=== PATIENT | female | born 1950 | race Caucasian/White ===

== ENCOUNTER 2019-01-04 21:05 | Inpatient (IN) ==
[2019-01-04 21:18] LABS: POC INR 1.5 (0.9-1.2); POC Pro Time 18.1 sec (11.9-14.5)
[2019-01-04 21:19] LABS: POC Blood Urea Nitrogen 26 mg/dl (8-23); POC CO2 22 mmol/L (22-30); POC Calcium, Ionized 1.09 mmol/L (1.16-1.32); POC Chloride 106 mmol/L (96-108); POC Creatinine 1.1 mg/dl (0.6-1.1); POC Glucose, Random 137 mg/dL (70-105); POC Potassium 4.3 mmol/L (3.3-5.1); POC Sodium 140 mmol/L (133-145)
--- NOTE | 2019-01-04 21:23 | Emergency Department Note ---
Neuro HPI - General Chief Complaint: Stroke Symptoms Stated Complaint: stroke symptoms Time Seen by Provider: 01/04/19 21:19 Source: patient Mode of arrival: ambulatory Limitations: no limitations - History of Present Illness HPI Narrative: Since 2:00 this afternoon patient has had onset of right leg weakness, right arm weakness as well as slurred speech, right-sided facial droop and these symptoms have come and gone multiple times since this afternoon. No headache she does take Coumadin, she does have a history of mitral valve replacement. She has a mechanical heart valve. She presented acutely to ED with history of right-sided weakness that resolved spontaneously on arrival to the ED. Onset (ago): hour(s) - Related Data Home Medications: Home Medications Medication Instructions Recorded Confirmed Amiodarone HCl [Pacerone] 0 mg PO DAILY 12/12/16 01/04/19 Warfarin [Coumadin] 2.5 mg PO DAILY 12/12/16 01/04/19 cholecalciferol (vitamin D3) 1 each PO QDAY 10/27/18 01/04/19 hydrocodone 5 mg-acetaminophen 325 1 tab PO PRN PRN tab 10/27/18 11/24/18 mg tablet levothyroxine 100 mcg tablet 100 mcg PO QDAY 10/27/18 01/04/19 spironolactone 25 mg tablet 25 mg PO PRN tab 10/27/18 01/04/19 vitamin B complex 1 each PO QDAY 10/27/18 01/04/19 furosemide 20 mg tablet 20 mg PO DAILY PRN tab 11/24/18 01/04/19 Allergies/Adverse Reactions: Allergies Allergy/AdvReac Type Severity Reaction Status Date / Time metoprolol Allergy Unknown hypotension Verified 11/24/18 09:45 codeine AdvReac Nausea Verified 11/24/18 09:45 Review of Systems All systems ED: reviewed and negative except as stated. Constitutional: Denies: fever, chills ENT ED: Denies: ear pain, throat pain Cardiovascular: Denies: palpitations Past Medical History - Past Medical History Medical history: Reports: atrial fibrillation, CAD (coronary artery disease), chronic anticoagulation, hypertension, thyroid disease, valvular heart disease FAMILY NURSE history: Reports: bilateral tubal ligation (2) Surgical history ED: Reports: coronary bypass (CABG), other (Mitral valve replacement. Recent cardioversion) Family history: Reports: no significant family history - Social History smoking status: Former smoker Alcohol use: Reports: Occasionally Physical Exam Limitations: no limitations General appearance: alert, anxious, in no apparent distress Head: atraumatic, normocephalic, normal inspection Eye: Present: normal appearance, PERRL, EOMI. Absent: conjunctival injection ENT: Present: normal exam, normal oropharynx, mucous membranes moist, TM's normal bilaterally, other (global type of alopecia) Neck: Present: normal inspection, full ROM, trachea midline. Absent: tenderness, meningismus Chest: Present: normal inspection, symmetric chest wall rise. Absent: tenderness Respiratory: Present: normal lung sounds bilaterally. Absent: respiratory distress, rales/crackles, wheezes Cardiovascular: Present: regular rate, systolic murmur, clicks, other (mechanical clicks consistent with artificial heart valve) Abdominal: Present: soft, normal bowel sounds. Absent: distention, tenderness Extremities: Present: normal inspection, full ROM. Absent: tenderness, pedal edema Back: Absent: CVA tenderness (R), CVA tenderness (L) Neurological: Present: alert, oriented X3, CN II-XII intact, normal gait. Absent: motor sensory deficit Psychiatric: Present: normal affect Skin: Present: warm, dry, normal color Course - Reevaluation(s) Reevaluation #1: IV fluids started. EKG done. Stroke protocol initiated. Head CT was read as negative for intracranial bleed or other acute findings of. We consulted with neurology and at the time we placed the initial call her NIH stroke scale was 0. Within a few minutes her symptoms recurred and then again she had right-sided weakness right-sided facial droop as well as right leg weakness with an NIH stroke scale score of 12 . Her neurologist looked at her with the robot and together with neurology consultation she decided and opted not to pursue TPA administration. The concern at this point was that she is already on Coumadin and the damage may have started at 1:30 this afternoon and the risk of hemorrhage is higher than usual with her being on Coumadin. Thus we will pursue CT angiogram, and go from there. We supported her with IV fluid administration, I ordered a fluid bolus which she has tolerated well. Blood pressures have been normal. Reevaluation #2: The neurologist from the stroke telemetry team doctor Elvin did have a conference call with the patient. She decided not to pursue TPA. He felt like she was not a TPA candidate as well. He did recommend aspirin. We gave her 4 chewable aspirin. Also IV fluids. Her symptoms went away again. At the time of this dictation she does not have neuro deficits, denies headache has had no nausea or vomiting, will be admitted for further monitoring. Final diagnosis is TIA, on Coumadin, history of mechanical heart valve replacement Vital Signs Temperature 98.1 F 01/04/19 21:06 Pulse Rate 72 01/04/19 21:06 Respiratory Rate 18 01/04/19 21:06 Blood Pressure 186/73 01/04/19 21:06 Pulse Oximetry (%) 97 01/04/19 21:06 Temperature 98.1 F 01/04/19 21:06 Pulse Rate 65 01/04/19 22:51 Respiratory Rate 19 01/04/19 22:51 Blood Pressure 134/56 01/04/19 22:51 Pulse Oximetry (%) 98 01/04/19 22:51 Neuro Symptoms/Deficit - MDM Narrative Medical decision making narrative: Final impression is TIA - Lab Data Lab results reviewed: Yes I reviewed the patient's lab results. Result diagrams: 01/04/19 21:15 01/04/19 21:15 Lab Results 01/04/19 01/04/19 01/04/19 Range/Units 21:15 21:15 21:15 WBC 7.4 (4.5-11.0) K/mcL RBC 4.56 (4.00-5.20) M/mcL Hgb 14.6 (12.0-15.0) g/dL Hct 43.4 (36.0-48.0) % POC Hct 43.0 (36.0-48.0) % MCV 95.2 (80.0-100.0) fL MCH 32.1 (26.0-34.0) pg MCHC 33.8 (31.0-36.0) g/dL RDW 12.2 (11.5-14.5) % Plt Count 288 (140-440) K/mcL MPV 8.8 (7.4-10.4) fL Gran % 80.1 H (38.0-78.0) % Lymph % (Auto) 6.4 L (15.5-49.0) % [place] % (Auto) 12.8 H (1.0-12.0) % Eos % (Auto) 0.3 (0.0-7.0) % Baso % (Auto) 0.4 (0.0-2.0) % Gran # 6.0 (1.8-8.0) K/mcL Lymph # (Auto) 0.5 L (1.5-4.8) K/mcL [place] # (Auto) 0.9 (0.1-0.9) K/mcL Eos # (Auto) 0 (0.0-0.7) K/mcL Baso # (Auto) 0 (0.0-0.3) K/mcL POC PT 18.1 H (11.9-14.5) sec POC INR 1.5 H (0.9-1.2) APTT (20-37) sec POC Sodium 140 (133-145) mmol/L Sodium (133-145) mmol/L POC Potassium 4.3 (3.3-5.1) mmol/L Potassium (3.3-5.1) mmol/L POC Chloride 106 (96-108) mmol/L Chloride (96-108) mmol/L Carbon Dioxide (22-30) mmol/L POC Total CO2 22 (22-30) mmol/L Anion Gap (8-16) POC BUN 26 H (8-23) mg/dl BUN (8-23) mg/dl Creatinine (0.6-1.1) mg/dl POC Creatinine 1.1 (0.6-1.1) mg/dl GFR Calculation Glucose (70-105) mg/dL POC Glucose 137 H (70-105) mg/dL Calcium (8.6-10.4) mg/dl POC WB Ioniz Calcium 1.09 L (1.16-1.32) mmol/L Total Bilirubin (0.0-1.0) mg/dL AST (0-37) U/l ALT (0-40) U/l Alkaline Phosphatase (39-117) U/L Troponin T (0-0.03) ng/ml Total Protein (5.9-8.4) gm/dL Albumin (3.2-5.2) gm/dL Globulin (2.2-3.7) gm/dL Albumin/Globulin Ratio (1.0-2.3) 01/04/19 01/04/19 01/04/19 Range/Units 21:15 21:15 21:15 WBC (4.5-11.0) K/mcL RBC (4.00-5.20) M/mcL Hgb (12.0-15.0) g/dL Hct (36.0-48.0) % POC Hct (36.0-48.0) % MCV (80.0-100.0) fL MCH (26.0-34.0) pg MCHC (31.0-36.0) g/dL RDW (11.5-14.5) % Plt Count (140-440) K/mcL MPV (7.4-10.4) fL Gran % (38.0-78.0) % Lymph % (Auto) (15.5-49.0) % [place] % (Auto) (1.0-12.0) % Eos % (Auto) (0.0-7.0) % Baso % (Auto) (0.0-2.0) % Gran # (1.8-8.0) K/mcL Lymph # (Auto) (1.5-4.8) K/mcL [place] # (Auto) (0.1-0.9) K/mcL Eos # (Auto) (0.0-0.7) K/mcL Baso # (Auto) (0.0-0.3) K/mcL POC PT (11.9-14.5) sec POC INR (0.9-1.2) APTT 31 (20-37) sec POC Sodium (133-145) mmol/L Sodium 138 (133-145) mmol/L POC Potassium (3.3-5.1) mmol/L Potassium 4.3 (3.3-5.1) mmol/L POC Chloride (96-108) mmol/L Chloride 101 (96-108) mmol/L Carbon Dioxide 20 L (22-30) mmol/L POC Total CO2 (22-30) mmol/L Anion Gap 17.0 H (8-16) POC BUN (8-23) mg/dl BUN 24 H (8-23) mg/dl Creatinine 1.1 (0.6-1.1) mg/dl POC Creatinine (0.6-1.1) mg/dl GFR Calculation 51 Glucose 132 H (70-105) mg/dL POC Glucose (70-105) mg/dL Calcium 8.9 (8.6-10.4) mg/dl POC WB Ioniz Calcium (1.16-1.32) mmol/L Total Bilirubin 1.2 H (0.0-1.0) mg/dL AST 23 (0-37) U/l ALT 18 (0-40) U/l Alkaline Phosphatase 78 (39-117) U/L Troponin T < 0.01 (0-0.03) ng/ml Total Protein 7.5 (5.9-8.4) gm/dL Albumin 4.1 (3.2-5.2) gm/dL Globulin 3.4 (2.2-3.7) gm/dL Albumin/Globulin Ratio 1.2 (1.0-2.3) - Radiology Data Radiology results reviewed: Yes I reviewed the patient's radiology results. Disposition Pt seen by BRANCH MANAGER/PA only: No Clinical Impression: TIA (transient ischemic attack) Disposition: Xfer As Inpt ([facility]) Condition: Good Referrals: Shaina Sanchez ARNP [Primary Care Provider] -
[2019-01-04] MEDS ORDERED: LACTATED RINGERS 1,000 ML IV SCH ×2 (21:30→22:45)
--- NOTE | 2019-01-04 21:40 | Cat Scan Report ---
Reason: Acute stroke symptoms TECHNIQUE: The brain was imaged without contrast at 2.5 mm intervals. Sagittal and coronal reformats were created. Radiation exposure was limited using dose reduction technology. FINDINGS: The brain appears normal without evidence of hemorrhage, edema, infarct or mass effect. The ventricles and cisterns are normal. There is no abnormal extra-axial fluid collection. Patient has had left-sided cataract surgery performed. IMPRESSION: Normal exam, without evidence of infarct Dr. Easley was called with the results Interpreted and Authenticated by: Drew Kaur 01/04/19
[2019-01-04 22:22] LABS: Basophils # (Auto) 0 K/mcL (0.0-0.3); Basophils % (Auto) 0.4 % (0.0-2.0); Eosinophils # (Auto) 0 K/mcL (0.0-0.7); Eosinophils % (Auto) 0.3 % (0.0-7.0); Granulocytes % (Auto) 80.1 % (38.0-78.0); Hematocrit 43.4 % (36.0-48.0); Hemoglobin 14.6 g/dL (12.0-15.0); Lymphocytes # (Auto) 0.5 K/mcL (1.5-4.8); Lymphocytes % (Auto) 6.4 % (15.5-49.0); Mean Cell Volume 95.2 fL (80.0-100.0); Mean Corpuscular HGB Conc 33.8 g/dL (31.0-36.0); Mean Platelet Volume 8.8 fL (7.4-10.4); Monocytes # (Auto) 0.9 K/mcL (0.1-0.9); Monocytes % (Auto) 12.8 % (1.0-12.0); Platelet Count 288 K/mcL (140-440); RBC 4.56 M/mcL (4.00-5.20); Red Cell Distribution Width 12.2 % (11.5-14.5); WBC 7.4 K/mcL (4.5-11.0)
[2019-01-04 22:35] LABS: ALT/SGPT 18 U/l (0-40); AST/SGOT 23 U/l (0-37); Albumin 4.1 gm/dL (3.2-5.2); Albumin/Globulin Ratio 1.2 (1.0-2.3); Alkaline Phosphatase 78 U/L (39-117); Bilirubin,Total 1.2 mg/dL (0.0-1.0); Blood Urea Nitrogen 24 mg/dl (8-23); Calcium 8.9 mg/dl (8.6-10.4); Carbon Dioxide 20 mmol/L (22-30); Chloride 101 mmol/L (96-108); Globulin 3.4 gm/dL (2.2-3.7); Glomerular Filtration Rate 51; Glucose 132 mg/dL (70-105)
[2019-01-04] MEDS ORDERED: 0.9 % SODIUM CHLORIDE 1,000 ML IV SCH (22:45)
[2019-01-04] MEDS ORDERED: ASPIRIN 81 MG TAB.CHEW CHEWED ONE (22:56)
[2019-01-05] MEDS ORDERED: ACETAMINOPHEN 325 MG TABLET PO PRN (01:13)
[2019-01-05] MEDS: LACTATED RINGERS 1,000 ML IV SCH ×4 (02:46→11:23)
[2019-01-05 06:02] LABS: Hematocrit 36.8 % (36.0-48.0); Hemoglobin 12.3 g/dL (12.0-15.0); Mean Corpuscular HGB Conc 33.3 g/dL (31.0-36.0); Mean Platelet Volume 8.4 fL (7.4-10.4); Platelet Count 206 K/mcL (140-440); RBC 3.75 M/mcL (4.00-5.20); Red Cell Distribution Width 12.8 % (11.5-14.5); WBC 6.1 K/mcL (4.5-11.0)
[2019-01-05] MEDS: 0.9 % SODIUM CHLORIDE 10 ML SYRINGE IV SCH ×3 (06:05→22:32)
[2019-01-05 06:06] LABS: HDL Cholesterol 38 mg/dl (>40); LDL Cholesterol,Calculated 128 mg/dl (SEE CHART); Non-HDL Cholesterol 138 (LDL TARGET+30); Triglycerides 51 mg/dl (<150)
[2019-01-05 06:27] LABS: ALT/SGPT 14 U/l (0-40); AST/SGOT 18 U/l (0-37); Albumin 3.2 gm/dL (3.2-5.2); Albumin/Globulin Ratio 1.2 (1.0-2.3); Alkaline Phosphatase 61 U/L (39-117); Bilirubin,Total 0.9 mg/dL (0.0-1.0); Blood Urea Nitrogen 22 mg/dl (8-23); Calcium 8.4 mg/dl (8.6-10.4); Carbon Dioxide 23 mmol/L (22-30); Chloride 107 mmol/L (96-108); Globulin 2.6 gm/dL (2.2-3.7); Glomerular Filtration Rate 75; Glucose 122 mg/dL (70-105); Thyroid Stimulating Hormone 0.27 uIU/ml (0.27-5.01)
[2019-01-05 07:24] LABS: Estimated Average Glucose(eAG) 103 mg/dL; Hemoglobin A1C 5.2 % HGB (4.0-6.0)
[2019-01-05 07:52] LABS: Lymphocytes % 2 % (15-49); Monocytes % (Manual) 12 % (1-12); Platelet Estimate NORMAL (NORMAL); RBC Morphology NORMAL (NORMAL); Reactive Lymphocytes 1 % (0-2); Segmented Neutrophils % 85 % (38-78)
--- NOTE | 2019-01-05 08:04 | Cat Scan Report ---
History: Stroke symptoms with right-sided weakness TECHNIQUE: Following injection of intravenous nonionic contrast, arterial phase images were acquired of the head. Sagittal and axial reformatted MIPS images were created. The radiation exposure was limited using dose reduction technology. FINDINGS: Small amount of eccentric plaque is seen along the brunner of the cavernous portions of both internal carotids. These are not causing stenosis. Petrous portions of both internal carotids are normal. The anterior and middle cerebral arteries are normal. The vertebral and basilar artery and the peripheral branches of the basilar arteries are normal in caliber. There is no aneurysm, stenosis, thrombosis or vascular malformation. No enhancing lesion is present. There is normal anterior communicating artery. Small patent right posterior communicating arteries are present. The left posterior communicating artery is hypoplastic. IMPRESSION: Normal intracranial arterial circulation Interpreted and Authenticated by: Drew Kaur 01/05/19
--- NOTE | 2019-01-05 08:16 | Cat Scan Report ---
History: Stroke symptoms with right-sided weakness TECHNIQUE: Following injection of intravenous nonionic contrast the patient was imaged during arterial phase from the main pulmonary artery to the head. Sagittal, coronal, 3-D volume rendered and curved linear reformatted images were created. The radiation exposure was limited using dose reduction technology. FINDINGS: There is a mosaic pattern in the lung parenchyma in the left upper lobe. Several of the lobules in the left upper lobe are hyperlucent6. There is normal opacification of the pulmonary arteries and veins within these lobules. The visualized airways do not appear to be occluded. Patient's had a prior sternotomy performed. Central pulmonary arteries enlarged. No pulmonary emboli are seen in the visualized pulmonary arteries. Scattered plaques are present along the top of the aortic arch. The aorta is normal in caliber and there is no dissection or stenosis. In the left carotid bifurcation there is a moderate amount of mixed plaque. Patient has an ulceration within the plaque. At this level there is a hemodynamically significant stenosis at the origin of the left internal carotid. There is approximately 70% stenosis, best seen on the current linear reformatted images. Beyond the stenosis the left internal carotid is normal. The left external carotid is normal. There is small amount of plaque in the right carotid bifurcation. This is causing approximately 25% stenosis at the origin of the internal carotid. The external carotid is normal. Mid and distal portions of the right internal carotid are normal. Vertebral arteries are normal in caliber and symmetric. No enhancing masses seen within the neck. There is no lymphadenopathy or inflammation. Moderate degenerative disc disease and arthritis are present from C4-5 through C6-7. IMPRESSION: Atherosclerosis of the left carotid bifurcation. There is an ulcerated plaque at this level and a 70% stenosis at the origin of the left internal carotid. Hyperlucent left upper lobe. This may be due to bronchiolitis obliterans or mucous plugging Dilated main pulmonary artery which is often associated with pulmonary artery hypertension Interpreted and Authenticated by: Drew Kaur 01/05/19
[2019-01-05] MEDS ORDERED: ASPIRIN 81 MG TAB.CHEW CHEWED SCH (09:00)
[2019-01-05 12:08] LABS: Appearance,Urine CLEAR; Bilirubin,Urine NEG (NEG); Color,Urine STRAW; Glucose,Urine (UA) NEGATIVE (NEG); Ketones,Urine NEG (NEG); Leukocyte Esterase,Urine NEG /uL (NEG); Nitrate,Urine NEG (NEG); Protein,Urine NEG (NEG); Urine Blood NEG mg/dL (<0.03)
--- NOTE | 2019-01-05 12:43 | Magnetic Resonance Report ---
History: Stroke symptoms with slurred speech, right facial droop and transient loss of movement on the right side of the body. TECHNIQUE: Multiplanar imaging was performed using multiple pulse sequences. FINDINGS: There is subtle swelling of the body of the left caudate nucleus and left putamen, compared to the right side. There is also mild increased signal within these two structures on FLAIR and T2 and there is subtle restricted diffusion. This may represent a hyperacute infarct or ischemic brain tissue which has not infarcted. No cortical infarct is present. There is no mass or hemorrhage. Ventricles and cisterns are normal. There is no significant atrophy. IMPRESSION: Hyperacute infarct versus ischemic but not infarcted brain tissue involving the left caudate nucleus and left putamen Dr. Reina was called with results Interpreted and Authenticated by: Drew Kaur 01/05/19
[2019-01-05 13:14] LABS: INR 1.7 (0.9-1.1); Prothrombin Time 19.9 sec (11.9-14.5)
--- NOTE | 2019-01-05 13:14 | Internal Med Progress Note ---
Medical - PN: Subj Patient information: Note initiated : 01/05/19 at 1:12 pm Service Date, if different from initiated Date: [] Patient: Crystal Conley 68 y/o F admitted on 01/05/19 for stroke symptoms. Chief Complaint: [] Interval history: Her symptoms completely resolved Pending INR level MRI showing evidence of stroke CT of the neck showing unstable plaque at the left carotid bifurcation Neurology consult Pertinent ROS: General appearance-not in any distress but appears to be very anxious Respiratory-no shortness of breath No wheezing no crackles CVS-no chest pain no palpitations Abdomen-nontender no constipation no diarrhea Neurology-her symptoms completely resolved not complaining of any aphasia or swallowing difficulty or any photo motor or sensory deficit - Constitutional Vitals: Vital Signs Temp Pulse Resp BP Pulse Ox 99.6 F H 52 L 16 118/62 97 01/05/19 07:09 01/05/19 07:09 01/05/19 07:09 01/05/19 07:09 01/05/19 07:09 Period Temp Pulse Resp BP Sys/Mai Pulse Ox Last 24 Hr 98.1 F-99.6 F 51-72 14-28 118-186/52-94 95-99 Intake and Output 01/04/19 01/05/19 01/05/19 21:59 05:59 13:59 Intake Total 50 2190 1000 Output Total 700 1800 Balance 50 1490 -800 Weight 157 lb 161 lb Intake & Output: Intake & Output 01/04/19 01/05/19 01/05/19 21:59 05:59 13:59 Intake Total 50 2190 1000 Output Total 700 1800 Balance 50 1490 -800 Weight 157 lb 161 lb Intake: IV 50 1950 1000 Lactated Ringers 1,000 ml @ 870 39 5142 1000 mls/hr IV .[id number] [facility] Rx#: [id number] Oral 240 Output: Void Amount 700 1800 Other: Meal Breakfast Percent of Meal Consumed 0% Urine Appearance Clear Clear Urine Color Bright Yellow Bright Yellow Urine Odor Normal Stool Size Small Stool Color Brown Stool Consistency Soft General appearance: average body habitus, cooperative, no acute distress - Head Head exam: Present: atraumatic, normal inspection, normocephalic - Neck Neck exam: Present: full ROM, tenderness (Erythematous neck and face). Absent: lymphadenopathy, normal inspection - Respiratory Respiratory exam: Present: normal respiratory exam. Absent: accessory muscle use, chest wall tenderness, decreased breath sounds, respiratory distress - Cardiovascular Cardiovascular exam: Present: normal rate and rhythm, systolic murmur. Absent: bradycardia - GI/Abdominal GI/Abdominal exam: Present: normal bowel sounds, soft, distended - Neurological Exam Neurological exam: Present: alert, normal gait, oriented X3 (Neuro exam unremarkable no focal deficit identified, her symptoms completely resolved), reflexes normal. Absent: abnormal gait, CN II-XII intact, motor sensory deficit Medical - PN: Obj Da - Labs CBC & Chem 7: 01/05/19 04:00 01/05/19 04:00 Labs: Abnormal Lab Results 01/05/19 01/05/19 01/05/19 04:00 04:00 04:00 RBC 3.75 L Gran % Lymph % (Auto) [place] % (Auto) Lymph # (Auto) Seg Neutrophils % 85 H Lymphocytes % 2 L POC PT POC INR Carbon Dioxide Anion Gap POC BUN BUN Glucose 122 H POC Glucose Calcium 8.4 L POC WB Ioniz Calcium Total Bilirubin Total Protein 5.8 L LDL Cholesterol, Calc 128 H Non-HDL Cholesterol 138 H HDL Cholesterol 38 L Urine Urobilinogen 01/04/19 01/04/19 01/04/19 21:15 21:15 21:15 RBC Gran % 80.1 H Lymph % (Auto) 6.4 L [place] % (Auto) 12.8 H Lymph # (Auto) 0.5 L Seg Neutrophils % Lymphocytes % POC PT POC INR Carbon Dioxide 20 L Anion Gap 17.0 H POC BUN 26 H BUN 24 H Glucose 132 H POC Glucose 137 H Calcium POC WB Ioniz Calcium 1.09 L Total Bilirubin 1.2 H Total Protein LDL Cholesterol, Calc Non-HDL Cholesterol HDL Cholesterol Urine Urobilinogen 01/04/19 01/04/19 21:15 11:34 RBC Gran % Lymph % (Auto) [place] % (Auto) Lymph # (Auto) Seg Neutrophils % Lymphocytes % POC PT 18.1 H POC INR 1.5 H Carbon Dioxide Anion Gap POC BUN BUN Glucose POC Glucose Calcium POC WB Ioniz Calcium Total Bilirubin Total Protein LDL Cholesterol, Calc Non-HDL Cholesterol HDL Cholesterol Urine Urobilinogen 4.0 A Meds: Medications Acetaminophen (Tylenol) 650 mg PO Q4-6HP PRN; Protocol PRN Reason: PAIN/FEVER > 101 Aspirin (Aspirin) 81 mg CHEWED DAILY [facility] Last Admin: 01/05/19 08:57 Dose: 81 mg Documented by: Non-Formulary Medication (Amiodarone Hcl [Pacerone]) 100 mg PO DAILY [facility] Non-Formulary Medication (Levothyroxine Sodium) 100 mcg PO QDAY [facility] Sodium Chloride (Saline Flush) 10 ml IV Q8 [facility] Last Admin: 01/05/19 06:05 Dose: Not Given Documented by: Warfarin Sodium (Coumadin Per Pharmacy) 1 order PO DAILY@1400 [facility] Warfarin Sodium (Coumadin) 2.5 mg PO ONCE@1400 ONE Stop: 01/05/19 14:01 Medical - PN: A/P - Time Spent With Patient Total time spent is greater than 50% in coordination of care (as documented) at patient's floor/unit and/or counseling patient: - Narrative A/P Narrative: Probable stroke MRI showing evidence of ischemia/stroke CTA showed evidence of 70% internal carotid narrowing and unstable plaque Will obtain neurology consult Pending INR and initiate anticoagulation Pharmacy to dose Coumadin Strongly encourage the patient to keep the INR 2.5-3.5 and check at least 2 times weekly. Patient was taking twice a month Aspirin continued 81 mg Pending echocardiogram Physical therapy evaluation Swallow evaluation Mechanical mitral valve Strongly encourage the patient to keep INR level 2.5 We will get opinion from neurology regarding anticoagulation and bridging Probable atrial fibrillation On amiodarone continue Monitor telemetry Anticoagulation DVT prophylaxis-subcu heparin CODE STATUS-full code Medical - PN: Qual - Stroke Onset of Symptoms Date: 01/04/19 Onset of Symptoms Time: 13:30 Symptom Onset Unknown: No
[2019-01-05] MEDS ORDERED: WARFARIN 2.5 MG TABLET PO ONE (14:00)
--- NOTE | 2019-01-05 17:32 | Internal Med History&Physical ---
Medical - H&P: [facility] Patient information: Note initiated : 01/04/19 at 11:31 pm Service Date, if different from initiated Date: []01/04/2019 Patient: Crystal Conley a 68 y/o F admitted on 01/05/19 for stroke symptoms. Chief Complaint: [] History of present illness: Ms. Conley is a 68 year old F This is a 68-year-old female with history of mitral mechanical valve 5 years ago, on hydrocodone, diuretics, amiodarone for probable atrial fibrillation. She was brought to the ER because of sudden onset of right upper and lower extremity weakness. Patient underwent some complicated dental cleaning this morning she was very anxious and her blood pressure was in the 200. After the procedure she went home. She also received a dose of amoxicillin preprocedure. Around noon at home she started having right upper and lower extremity weakness by the time she gets to the ER her symptoms resolved and ER physician discussed with the neurology did not recommend TPA. But patient again developed the symptoms CT scan was unremarkable and we communicated with the neurology and her symptoms improved since this was intermittent symptoms and completely resolved neurology did not recommend any thrombolytics. She was admitted to our facility for further management Medical - H&P: Meds Home Medications Medication Instructions Recorded Confirmed Type Amiodarone HCl [Pacerone] 100 mg PO DAILY 12/12/16 01/05/19 History Warfarin [Coumadin] 2.5 mg PO DAILY 12/12/16 01/05/19 History cholecalciferol (vitamin D3) 1 each PO QDAY 10/27/18 01/05/19 History hydrocodone 5 mg-acetaminophen 325 1 tab PO PRN PRN tab 10/27/18 11/24/18 History mg tablet levothyroxine 100 mcg tablet 100 mcg PO QDAY 10/27/18 01/05/19 History spironolactone 25 mg tablet 25 mg PO PRN tab 10/27/18 01/05/19 History vitamin B complex 1 each PO QDAY 10/27/18 01/04/19 History furosemide 20 mg tablet 20 mg PO DAILY PRN tab 11/24/18 01/04/19 History Allergies Allergy/AdvReac Type Severity Reaction Status Date / Time codeine AdvReac Mild Nausea Verified 01/05/19 08:10 metoprolol AdvReac Mild Hypotension Verified 01/05/19 08:10 Medical - H&P: Exam - Constitutional Vitals: Temp Pulse Resp BP Pulse Ox 98.1 F 52 L 16 152/66 99 01/05/19 15:55 01/05/19 07:09 01/05/19 15:55 01/05/19 15:55 01/05/19 15:55 General appearance: average body habitus, cooperative, no acute distress Medical - H&P: Reslt - Labs CBC & Chem 7: 01/05/19 04:00 01/05/19 04:00 Labs: Short CBC 01/04/19 01/05/19 Range/Units 21:15 04:00 WBC 7.4 6.1 (4.5-11.0) K/mcL Hgb 14.6 12.3 (12.0-15.0) g/dL Hct 43.4 36.8 (36.0-48.0) % Plt Count 288 206 (140-440) K/mcL BMP 01/04/19 01/05/19 21:15 04:00 Sodium 138 140 Potassium 4.3 4.1 Chloride 101 107 Carbon Dioxide 20 L 23 BUN 24 H 22 Creatinine 1.1 0.8 Glucose 132 H 122 H Calcium 8.9 8.4 L Cardiac Enzymes 01/04/19 Range/Units 21:15 Troponin T < 0.01 (0-0.03) ng/ml Liver Function 01/04/19 01/05/19 Range/Units 21:15 04:00 Total Bilirubin 1.2 H 0.9 (0.0-1.0) mg/dL AST 23 18 (0-37) U/l ALT 18 14 (0-40) U/l Alkaline Phosphatase 78 61 (39-117) U/L Albumin 4.1 3.2 (3.2-5.2) gm/dL Urine 01/04/19 Range/Units 11:34 Urine Color Straw Urine Appearance Clear Urine pH 7.0 (5.0-9.0) Ur Specific [place] 1.010 (1.000-1.035) Urine Protein Neg (NEG) mg/dL Urine Glucose (UA) Negative (NEG) mg/dL Medical - H&P: A/P - Narrative A/P Narrative: Probable stroke Intermittent right upper and lower extremity weakness Patient had elevated blood pressure this morning after the dental cleaning procedure Subtherapeutic INR with mitral valve pending INR and initiate anticoagulation Pharmacy to dose Coumadin Strongly encourage the patient to keep the INR 2.5-3.5 and check at least 2 times weekly. Patient was taking twice a month Aspirin continued 81 mg Pending echocardiogram Physical therapy evaluation Swallow evaluation Mechanical mitral valve Strongly encourage the patient to keep INR level 2.5 We will get opinion from neurology regarding anticoagulation and bridging Probable atrial fibrillation On amiodarone continue Monitor telemetry Anticoagulation DVT prophylaxis-subcu heparin CODE STATUS-full code Medical - H&P: Qual - Stroke Onset of Symptoms Date: 01/04/19 Onset of Symptoms Time: 13:30 Symptom Onset Unknown: No
[2019-01-05 17:59] LABS: Hematocrit 39.7 % (36.0-48.0); Hemoglobin 13.3 g/dL (12.0-15.0); Mean Cell Volume 97.3 fL (80.0-100.0); Mean Corpuscular HGB Conc 33.6 g/dL (31.0-36.0); Mean Platelet Volume 8.2 fL (7.4-10.4); Platelet Count 226 K/mcL (140-440); RBC 4.08 M/mcL (4.00-5.20); Red Cell Distribution Width 12.6 % (11.5-14.5); WBC 6.9 K/mcL (4.5-11.0)
[2019-01-05 18:03] LABS: INR 1.6 (0.9-1.1); Prothrombin Time 18.6 sec (11.9-14.5)
[2019-01-05] MEDS ORDERED: HEPARIN/D5W 500 ML IV ONE (18:35)
[2019-01-05] MEDS: HEPARIN/D5W 25,000 UNIT in PREMIX 1 BAG IV SCH (18:46)
[2019-01-06] MEDS: 0.9 % SODIUM CHLORIDE 10 ML SYRINGE IV SCH ×3 (05:17→21:35)
[2019-01-06 06:14] LABS: INR 1.7 (0.9-1.1)
[2019-01-06 06:28] LABS: ALT/SGPT 14 U/l (0-40); AST/SGOT 18 U/l (0-37); Albumin 3.2 gm/dL (3.2-5.2); Albumin/Globulin Ratio 1.2 (1.0-2.3); Alkaline Phosphatase 59 U/L (39-117); Blood Urea Nitrogen 20 mg/dl (8-23); Calcium 8.4 mg/dl (8.6-10.4); Carbon Dioxide 25 mmol/L (22-30); Chloride 106 mmol/L (96-108); Globulin 2.7 gm/dL (2.2-3.7); Glomerular Filtration Rate 75; Glucose 106 mg/dL (70-105)
[2019-01-06 07:03] LABS: Hematocrit 37.3 % (36.0-48.0); Hemoglobin 12.6 g/dL (12.0-15.0); Mean Corpuscular HGB Conc 33.8 g/dL (31.0-36.0); Mean Platelet Volume 8.6 fL (7.4-10.4); Platelet Count 195 K/mcL (140-440); RBC 3.81 M/mcL (4.00-5.20); Red Cell Distribution Width 12.5 % (11.5-14.5); WBC 4.8 K/mcL (4.5-11.0)
--- NOTE | 2019-01-06 08:03 | Internal Med Progress Note ---
Medical - PN: Subj Patient information: Note initiated : 01/06/19 at 8:01 am Service Date, if different from initiated Date: [] Patient: Crystal Conley 68 y/o F admitted on 01/05/19 for stroke symptoms. Chief Complaint: [] Interval history: 01/05- Her symptoms completely resolved Pending INR level MRI showing evidence of stroke CT of the neck showing unstable plaque at the left carotid bifurcation Neurology consult 01/06-discussed with a neurologist and he did not recommend any procedure for the left carotid narrowing and plaque seen at the bifurcation. Dr. Angel neurologist at [facility] recommended starting the patient on heparin infusion until better INR more than 2.5. He recommended stopping aspirin. Recommended ordering carotid ultrasound to follow-up on the carotid na rrowing better. Patient remained asymptomatic her right-sided weakness completely resolved. Working with the physical therapy and Occupational Therapy Pertinent ROS: General appearance-appears to be anxious, oriented alert Respiratory-no shortness of breath no wheezing no cough CVS-no chest pain no palpitation no dizziness Abdomen-distended no pain no diarrhea no constipation Urinary-no urine symptoms no discharge Musculoskeletal-denied any new unusual pain Neurology-her symptoms resolved and not complain any weakness - Constitutional Vitals: Vital Signs Temp Pulse Resp BP Pulse Ox 97.8 F 51 L 46 H 123/54 100 01/06/19 03:00 01/06/19 03:00 01/06/19 03:00 01/06/19 03:00 01/06/19 03:00 Period Temp Pulse Resp BP Sys/Mai Pulse Ox Last 24 Hr 96.7 F-98.1 F 51-78 14-46 123-156/54-66 94-100 Intake and Output 01/05/19 01/06/19 01/06/19 21:59 05:59 13:59 Intake Total 180 189 Output Total 1000 850 Balance -820 -661 Weight 157 lb 3.033 oz Intake & Output: Intake & Output 01/05/19 01/06/19 01/06/19 21:59 05:59 13:59 Intake Total 180 189 Output Total 1000 850 Balance -820 -661 Weight 157 lb 3.033 oz Intake: IV 189 Heparin/D5w 25,000 Unit In 189 Premix 1 Bag @ 14 UNIT/KG/HR 20 .448 mls/hr IV .Q24H [facility] Rx#: [id number] Oral 180 Output: Void Amount 1000 850 Other: Urine Appearance Clear Clear Urine Color Bright Yellow Dark Yellow Urine Odor Normal General appearance: cooperative, no acute distress - Head Head exam: Present: atraumatic, normal inspection, normocephalic - Eye Eye exam: Present: conjunctival injection, normal appearance - ENT ENT exam: Present: mucous membranes moist, normal exam, normal external ear exam - Neck Neck exam: Present: full ROM, normal inspection. Absent: lymphadenopathy, meningismus - Respiratory Respiratory exam: Present: normal respiratory exam. Absent: accessory muscle use, chest wall tenderness, decreased breath sounds, respiratory distress, r honchi - Cardiovascular Cardiovascular exam: Present: normal rate and rhythm. Absent: bradycardia, systolic murmur - GI/Abdominal GI/Abdominal exam: Present: normal bowel sounds, soft, distended - Neurological Exam Neurological exam: Present: alert, normal gait, oriented X3, reflexes normal. Absent: abnormal gait, altered, motor sensory deficit Medical - PN: Obj Da - Labs CBC & Chem 7: 01/06/19 03:45 01/06/19 03:45 Labs: Abnormal Lab Results 01/06/19 01/06/19 01/06/19 03:45 03:45 03:45 RBC 3.81 L Gran % Lymph % (Auto) Young % (Auto) Lymph # (Auto) Seg Neutrophils % Lymphocytes % POC PT PT 20.0 H POC INR INR 1.7 H APTT Carbon Dioxide Anion Gap POC BUN BUN Glucose 106 H POC Glucose Calcium 8.4 L POC WB Ioniz Calcium Total Bilirubin Total Protein LDL Cholesterol, Calc Non-HDL Cholesterol HDL Cholesterol Urine Urobilinogen 01/06/19 01/05/19 01/05/19 02:45 17:15 12:41 RBC Gran % Lymph % (Auto) Young % (Auto) Lymph # (Auto) Seg Neutrophils % Lymphocytes % POC PT PT 18.6 H 19.9 H POC INR INR 1.6 H 1.7 H APTT 176 H* Carbon Dioxide Anion Gap POC BUN BUN Glucose POC Glucose Calcium POC WB Ioniz Calcium Total Bilirubin Total Protein LDL Cholesterol, Calc Non-HDL Cholesterol HDL Cholesterol Urine Urobilinogen 01/05/19 01/05/19 01/05/19 04:00 04:00 04:00 RBC 3.75 L Gran % Lymph % (Auto) Young % (Auto) Lymph # (Auto) Seg Neutrophils % 85 H Lymphocytes % 2 L POC PT PT POC INR INR APTT Carbon Dioxide Anion Gap POC BUN BUN Glucose 122 H POC Glucose Calcium 8.4 L POC WB Ioniz Calcium Total Bilirubin Total Protein 5.8 L LDL Cholesterol, Calc 128 H Non-HDL Cholesterol 138 H HDL Cholesterol 38 L Urine Urobilinogen 01/04/19 01/04/19 01/04/19 21:15 21:15 21:15 RBC Gran % 80.1 H Lymph % (Auto) 6.4 L Young % (Auto) 12.8 H Lymph # (Auto) 0.5 L Seg Neutrophils % Lymphocytes % POC PT PT POC INR INR APTT Carbon Dioxide 20 L Anion Gap 17.0 H POC BUN 26 H BUN 24 H Glucose 132 H POC Glucose 137 H Calcium POC WB Ioniz Calcium 1.09 L Total Bilirubin 1.2 H Total Protein LDL Cholesterol, Calc Non-HDL Cholesterol HDL Cholesterol Urine Urobilinogen 01/04/19 01/04/19 21:15 11:34 RBC Gran % Lymph % (Auto) Young % (Auto) Lymph # (Auto) Seg Neutrophils % Lymphocytes % POC PT 18.1 H PT POC INR 1.5 H INR APTT Carbon Dioxide Anion Gap POC BUN BUN Glucose POC Glucose Calcium POC WB Ioniz Calcium Total Bilirubin Total Protein LDL Cholesterol, Calc Non-HDL Cholesterol HDL Cholesterol Urine Urobilinogen 4.0 A Meds: Medications Acetaminophen (Tylenol) 650 mg PO Q4-6HP PRN; Protocol PRN Reason: PAIN/FEVER > 101 Amiodarone HCl (Cordarone) 100 mg PO [facility] Heparin Sodium/Dextrose 25,000 (unit/ Premix) 500 mls @ 20.448 mls/hr IV .Q24H [facility]; Protocol Last Titration: 01/06/19 05:15 Dose: 10 unit/kg/hr, 14.606 mls/hr Documented by: Levothyroxine Sodium (Synthroid) 100 mcg PO ACB [facility] Sodium Chloride (Saline Flush) 10 ml IV Q8 [facility] Last Admin: 01/06/19 05:17 Dose: Not Given Documented by: Warfarin Sodium (Coumadin Per Pharmacy) 1 order PO DAILY@1400 [facility] Last Admin: 01/05/19 14:49 Dose: 1 order Documented by: Medical - PN: A/P - Time Spent With Patient Total time spent is greater than 50% in coordination of care (as documented) at patient's floor/unit and/or counseling patient: - Narrative A/P Narrative: Probable stroke MRI showing evidence of ischemia/stroke CTA showed evidence of 70% internal carotid narrowing and plaque-discussed with a neurologist at [facility] and he reviewed the CTA stated the narrowing is around 50% and did not recommend any procedure Started her on heparin infusion with a subtherapeutic INR. Neurologist agreed as her stroke is tiny Pharmacy to dose Coumadin Strongly encourage the patient to keep the INR 2.5-3.5 and check at least 2 times weekly. Patient was taking twice a month Aspirin discontinued as recommended by neurology Started on statin 40 mg atorvastatin Physical therapy evaluation and swallow eval done Mechanical mitral valve Strongly encourage the patient to keep INR level 2.5 We will get opinion from neurology regarding anticoagulation and bridging Echocardiogram pending Probable atrial fibrillation On amiodarone continue Monitor telemetry Anticoagulation as mentioned above DVT prophylaxis-subcu heparin CODE STATUS-full code Medical - PN: Qual - Stroke Onset of Symptoms Date: 01/04/19 Onset of Symptoms Time: 13:30 Symptom Onset Unknown: No
--- NOTE | 2019-01-06 08:19 | Ultrasound Report ---
CLINICAL INFORMATION: Transient ischemic attack with stenosis of the left internal carotid COMPARISON: Neck CT angiogram on 01/04/19 TECHNIQUE: Carotid arteries were imaged in sagittal and transverse planes using 5 mHz linear probe: Doppler, color, and 2D. FINDINGS: See worksheet by the technologist for velocities in PACS Please correlate with CTA CT Angiography or MRA MR Angiography if surgery is contemplated. There is a moderate amount of plaque in the carotid bifurcations bilaterally, left worse than right. A 50-69% stenosis is present in the proximal left internal carotid. There is mixed plaque at this site. The ulcerated plaque which was demonstrated on the preceding CT scan was not clearly identified by ultrasound. There is no stenosis distal to the origin of the left internal carotid. Nonhemodynamically significant stenosis is present in the right internal carotid due to hard plaque. Antegrade flow is present in both vertebral arteries. There is normal blood flow in the common carotids. IMPRESSION: 50-69% stenosis in the proximal left internal carotid due to mixed plaque. The finding of an ulcerated plaque in the left carotid bifurcation was convincing on the preceding neck CT angiogram, in spite of the nonvisualization of the ulcer on the current ultrasound. Endarterectomy or stent placement is recommended. Interpreted and Authenticated by: Drew Kaur 01/06/19
[2019-01-06] MEDS: LEVOTHYROXINE 100 MCG TABLET PO SCH (08:39)
[2019-01-06] MEDS: AMIODARONE HCL 200 MG TABLET PO SCH (08:42)
[2019-01-06 08:56] LABS: Eosinophils % (Manual) 1 % (0-7); Lymphocytes % 12 % (15-49); Monocytes % (Manual) 12 % (1-12); Platelet Estimate NORMAL (NORMAL); RBC Morphology NORMAL (NORMAL); Segmented Neutrophils % 75 % (38-78)
[2019-01-06] MEDS: ATORVASTATIN 20 MG TABLET PO SCH (10:35)
--- NOTE | 2019-01-06 12:39 | Internal Med Progress Note ---
Medical - PN: Subj Patient information: Note initiated : 01/06/19 at 12:30 pm Service Date, if different from initiated Date: [] Patient: Crystal Conley a 68 y/o F admitted on 01/05/19 for stroke symptoms. Chief Complaint: [] Interval history: Ms. Conley is a 68 year old F This is a 68-year-old female with history of mitral mechanical valve 5 years ago, on hydrocodone, diuretics, amiodarone for probable atrial fibrillation. She was brought to the ER because of sudden onset of right upper and lower extremity weakness. Patient underwent some complicated dental cleaning this morning she was very anxious and her blood pressure was in the 200. After the procedure she went home. She also received a dose of amoxicillin preprocedure. Around noon at home she started having right upper and lower extremity weakness by the time she gets to the ER her symptoms resolved and ER physician discussed with the neurology did not recommend TPA. But patient again developed the symptoms CT scan was unremarkable and we communicated with the neurology and her symptoms improved since this was intermittent symptoms and completely resolved neurology did not recommend any thrombolytics. She was admitted to our facility for further management 01/05- Her symptoms completely resolved Pending INR level MRI showing evidence of stroke CT of the neck showing unstable plaque at the left carotid bifurcation Neurology consult 01/06-discussed with a neurologist and he did not recommend any procedure for the left carotid narrowing and plaque seen at the bifurcation. Dr. Angel neurologist at [facility] recommended starting the patient on heparin infusion until better INR more than 2.5. He recommended stopping aspirin. Recommended ordering carotid ultrasound to follow-up on the carotid narrowing better. Patient remained asymptomatic her right-sided weakness completely resolved. Working with the physical therapy and Occupational Therapy - Constitutional Vitals: Vital Signs Temp Pulse Resp BP Pulse Ox 97.7 F 52 L 18 125/52 100 01/06/19 12:00 01/06/19 12:00 01/06/19 12:00 01/06/19 12:00 01/06/19 12:00 Period Temp Pulse Resp BP Sys/Mai Pulse Ox Last 24 Hr 96.7 F-98.1 F 51-78 14-46 107-152/52-96 94-100 Intake and Output 01/05/19 01/06/19 01/06/19 21:59 05:59 13:59 Intake Total 180 189 350 Output Total 1000 850 800 Balance -820 661 -450 Weight 71.3 kg Intake & Output: Intake & Output 01/05/19 01/06/19 01/06/19 21:59 05:59 13:59 Intake Total 180 189 350 Output Total 1000 850 800 Balance -820 -661 -450 Weight 71.3 kg Intake: IV 189 Heparin/D5w 25,000 Unit In 189 Premix 1 Bag @ 14 UNIT/KG/HR 20 .448 mls/hr IV .Q24H [facility] Rx#: [id number] Oral 180 350 Output: Void Amount 1000 850 800 Other: Meal Breakfast Percent of Meal Consumed 75% Feeding Ability Assist with Tray Set Up Urine Appearance Clear Clear Clear Urine Color Bright Yellow Dark Yellow Dark Yellow Urine Odor Normal Strong Exam: General: Alert, Awake, No acute Distress Eyes/N/T: EOMI, Head/Neck: neck supple, CV: RRR, No murmurs, Pulm: Clear b/l, no wheezing/rhonchi/rales Abd: soft, nontender, +BS x4 Ext: no clubbing/cyanosis/edema Neuro: Alert, Skin: warm/dry Medical - PN: Obj Da - Labs CBC & Chem 7: 01/06/19 03:45 01/06/19 03:45 Labs: Abnormal Lab Results 01/06/19 01/06/19 01/06/19 03:45 03:45 03:45 RBC 3.81 L Gran % Lymph % (Auto) Mason % (Auto) Lymph # (Auto) Seg Neutrophils % Lymphocytes % 12 L POC PT PT 20.0 H POC INR INR 1.7 H APTT Carbon Dioxide Anion Gap POC BUN BUN Glucose 106 H POC Glucose Calcium 8.4 L POC WB Ioniz Calcium Total Bilirubin Total Protein LDL Cholesterol, Calc Non-HDL Cholesterol HDL Cholesterol Urine Urobilinogen 01/06/19 01/05/19 01/05/19 02:45 17:15 12:41 RBC Gran % Lymph % (Auto) Mason % (Auto) Lymph # (Auto) Seg Neutrophils % Lymphocytes % POC PT PT 18.6 H 19.9 H POC INR INR 1.6 H 1.7 H APTT 176 H* Carbon Dioxide Anion Gap POC BUN BUN Glucose POC Glucose Calcium POC WB Ioniz Calcium Total Bilirubin Total Protein LDL Cholesterol, Calc Non-HDL Cholesterol HDL Cholesterol Urine Urobilinogen 01/05/19 01/05/19 01/05/19 04:00 04:00 04:00 RBC 3.75 L Gran % Lymph % (Auto) Mason % (Auto) Lymph # (Auto) Seg Neutrophils % 85 H Lymphocytes % 2 L POC PT PT POC INR INR APTT Carbon Dioxide Anion Gap POC BUN BUN Glucose 122 H POC Glucose Calcium 8.4 L POC WB Ioniz Calcium Total Bilirubin Total Protein 5.8 L LDL Cholesterol, Calc 128 H Non-HDL Cholesterol 138 H HDL Cholesterol 38 L Urine Urobilinogen 01/04/19 01/04/19 01/04/19 21:15 21:15 21:15 RBC Gran % 80.1 H Lymph % (Auto) 6.4 L Mason % (Auto) 12.8 H Lymph # (Auto) 0.5 L Seg Neutrophils % Lymphocytes % POC PT PT POC INR INR APTT Carbon Dioxide 20 L Anion Gap 17.0 H POC BUN 26 H BUN 24 H Glucose 132 H POC Glucose 137 H Calcium POC WB Ioniz Calcium 1.09 L Total Bilirubin 1.2 H Total Protein LDL Cholesterol, Calc Non-HDL Cholesterol HDL Cholesterol Urine Urobilinogen 01/04/19 01/04/19 21:15 11:34 RBC Gran % Lymph % (Auto) Mason % (Auto) Lymph # (Auto) Seg Neutrophils % Lymphocytes % POC PT 18.1 H PT POC INR 1.5 H INR APTT Carbon Dioxide Anion Gap POC BUN BUN Glucose POC Glucose Calcium POC WB Ioniz Calcium Total Bilirubin Total Protein LDL Cholesterol, Calc Non-HDL Cholesterol HDL Cholesterol Urine Urobilinogen 4.0 A Meds: Medications Acetaminophen (Tylenol) 650 mg PO Q4-6HP PRN; Protocol PRN Reason: PAIN/FEVER > 101 Amiodarone HCl (Cordarone) 100 mg PO [facility] Last Admin: 01/06/19 08:42 Dose: 100 mg Documented by: Atorvastatin Calcium (Lipitor) 40 mg PO DAILY [facility] Last Admin: 01/06/19 10:35 Dose: 40 mg Documented by: Heparin Sodium/Dextrose 25,000 (unit/ Premix) 500 mls @ 20.448 mls/hr IV .Q24H [facility]; Protocol Last Titration: 01/06/19 05:15 Dose: 10 unit/kg/hr, 14.606 mls/hr Documented by: Levothyroxine Sodium (Synthroid) 100 mcg PO ACB [facility] Last Admin: 01/06/19 08:39 Dose: 100 mcg Documented by: Sodium Chloride (Saline Flush) 10 ml IV Q8 [facility] Last Admin: 01/06/19 05:17 Dose: Not Given Documented by: Warfarin Sodium (Coumadin Per Pharmacy) 1 order PO DAILY@1400 [facility] Last Admin: 01/05/19 14:49 Dose: 1 order Documented by: Warfarin Sodium (Coumadin) 2.5 mg PO ONCE@1400 [facility] Stop: 01/06/19 14:01 Medical - PN: A/P - Time Spent With Patient Total time spent is greater than 50% in coordination of care (as documented) at patient's floor/unit and/or counseling patient: - Narrative A/P Narrative: A: *MRI showing evidence of ischemia/stroke left basal ganglia: right-side weakness resolved -CTA showed evidence of 70% IC narrowing & plaque-discussed w/neurologist at [place] who reviewed CTA stating narrowing is around 50% & did not recommend any procedure -carotid with 50-69% left ICA *Mechanical mitral valve: -Echocardiogram pending *Probable atrial fibrillation *Hypothyroidism: P: -Started her on heparin infusion with a subtherapeutic INR. Neurologist agreed as her stroke is tiny - Pharmacy to dose Coumadin -Strongly encourage the patient to keep the INR 2.5-3.5 and check at least 2 times weekly. Patient was taking twice a month -ASA discontinued as recommended by neurology -Started on atorvastatin 40mg -Physical therapy evaluation and swallow eval done -On amiodarone continue -home diuretics held for now -f/u with Dr. Black for stenosis -DVT prophylaxis: subcu heparin - warfarin bridge Medical - PN: Qual - Stroke Onset of Symptoms Date: 01/04/19 Onset of Symptoms Time: 13:30 Symptom Onset Unknown: No
[2019-01-06] MEDS ORDERED: WARFARIN 2.5 MG TABLET PO ONE (14:00)
[2019-01-07] MEDS: HEPARIN/D5W 25,000 UNIT in PREMIX 1 BAG IV SCH (03:06)
[2019-01-07] MEDS ORDERED: HEPARIN/D5W 500 ML IV ONE (03:06)
[2019-01-07 05:05] LABS: Hematocrit 38.9 % (36.0-48.0); Hemoglobin 12.9 g/dL (12.0-15.0); Mean Cell Volume 98.4 fL (80.0-100.0); Mean Corpuscular HGB Conc 33.1 g/dL (31.0-36.0); Mean Platelet Volume 8.4 fL (7.4-10.4); Platelet Count 211 K/mcL (140-440); RBC 3.95 M/mcL (4.00-5.20); Red Cell Distribution Width 12.7 % (11.5-14.5); WBC 4.3 K/mcL (4.5-11.0)
[2019-01-07 05:19] LABS: ALT/SGPT 15 U/l (0-40); AST/SGOT 18 U/l (0-37); Albumin 3.3 gm/dL (3.2-5.2); Albumin/Globulin Ratio 1.2 (1.0-2.3); Alkaline Phosphatase 59 U/L (39-117); Bilirubin,Total 0.6 mg/dL (0.0-1.0); Blood Urea Nitrogen 20 mg/dl (8-23); Calcium 8.3 mg/dl (8.6-10.4); Carbon Dioxide 27 mmol/L (22-30); Chloride 103 mmol/L (96-108); Globulin 2.8 gm/dL (2.2-3.7); Glomerular Filtration Rate 75; Glucose 107 mg/dL (70-105); INR 1.6 (0.9-1.1); Prothrombin Time 19.2 sec (11.9-14.5)
[2019-01-07] MEDS: 0.9 % SODIUM CHLORIDE 10 ML SYRINGE IV SCH ×3 (05:49→23:03)
[2019-01-07 06:41] LABS: Eosinophils % (Manual) 1 % (0-7); Lymphocytes % 19 % (15-49); Monocytes % (Manual) 10 % (1-12); Platelet Estimate NORMAL (NORMAL); RBC Morphology NORMAL (NORMAL); Segmented Neutrophils % 70 % (38-78)
--- NOTE | 2019-01-07 07:04 | Internal Med Progress Note ---
Medical - PN: Subj Patient information: Note initiated : 01/07/19 at 7:01 am Service Date, if different from initiated Date: [] Patient: Crystal Conley a 68 y/o F admitted on 01/05/19 for stroke symptoms. Chief Complaint: [] Interval history: Ms. Conley is a 68 year old F This is a 68-year-old female with history of mitral mechanical valve 5 years ago, on hydrocodone, diuretics, amiodarone for probable atrial fibrillation. She was brought to the ER because of sudden onset of right upper and lower extremity weakness. Patient underwent some complicated dental cleaning this morning she was very anxious and her blood pressure was in the 200. After the procedure she went home. She also received a dose of amoxicillin preprocedure. Around noon at home she started having right upper and lower extremity weakness by the time she gets to the ER her symptoms resolved and ER physician discussed with the neurology did not recommend TPA. But patient again developed the symptoms CT scan was unremarkable and we communicated with the neurology and her symptoms improved since this was intermittent symptoms and completely resolved neurology did not recommend any thrombolytics. She was admitted to our facility for further management 01/05- Her symptoms completely resolved Pending INR level MRI showing evidence of stroke CT of the neck showing unstable plaque at the left carotid bifurcation Neurology consult 01/06-discussed with a neurologist and he did not recommend any procedure for the left carotid narrowing and plaque seen at the bifurcation. Dr. Angel neurologist at [facility] recommended starting the patient on heparin infusion until better INR more than 2.5. He recommended stopping aspirin. Recommended ordering carotid ultrasound to follow-up on the carotid narrowing better. Patient remained asymptomatic her right-sided weakness completely resolved. Working with the physical therapy and Occupational Therapy 01/07 per neurology note by Dr. Wong, he did state "consider addition of low dose aspirin", not sure where recommendation to stop aspirin was mentioned but I suspect it was recommened to stop by Dr. Angel when heparin infusion was recommended to start. No overnight events. No new complaints patient. Review of Systems: denies headache/fever/chills/nausea/vomiting/chest or abdominal pain/cough/dyspnea/diarrhea. Otherwise see above. - Constitutional Vitals: Vital Signs Temp Pulse Resp BP Pulse Ox 97.8 F 50 L 16 120/59 100 01/07/19 04:00 01/07/19 04:00 01/07/19 04:00 01/07/19 04:00 01/07/19 04:00 Period Temp Pulse Resp BP Sys/Mai Pulse Ox Last 24 Hr 97.3 F-98.2 F 50-57 14-18 107-141/42-96 97-100 Intake and Output 01/06/19 01/07/19 01/07/19 21:59 05:59 13:59 Intake Total 350 311 Output Total 250 1125 Balance 100 -814 Weight 73.936 kg Intake & Output: Intake & Output 01/06/19 01/07/19 01/07/19 21:59 05:59 13:59 Intake Total 350 311 Output Total 250 1125 Balance 100 -814 Weight 73.936 kg Intake: IV 311 Heparin/D5w 25,000 Unit In 311 Premix 1 Bag @ 14 UNIT/KG/HR 20 .448 mls/hr IV .Q24H [facility] Rx#: [id number] Oral 350 Output: Void Amount 250 1125 Other: Urine Appearance Clear Urine Color Dark Yellow Urine Odor Strong Exam: General: Alert, Awake, No acute Distress Eyes/N/T: EOMI, Head/Neck: neck supple, CV: RRR, No murmurs, Pulm: Clear b/l, no wheezing/rhonchi/rales Abd: soft, nontender, +BS x4 Ext: no clubbing/cyanosis/edema Neuro: Alert, awake, moves all extremities, no apparent weakness right side Skin: warm/dry Medical - PN: Obj Da - Labs CBC & Chem 7: 01/07/19 04:00 01/07/19 04:00 Labs: Abnormal Lab Results 01/07/19 01/07/19 01/07/19 04:00 04:00 04:00 WBC 4.3 L RBC 3.95 L Gran % Lymph % (Auto) Creek % (Auto) Lymph # (Auto) Seg Neutrophils % Lymphocytes % POC PT PT 19.2 H POC INR INR 1.6 H APTT 93 H Carbon Dioxide Anion Gap POC BUN BUN Glucose POC Glucose Calcium POC WB Ioniz Calcium Total Bilirubin Total Protein LDL Cholesterol, Calc Non-HDL Cholesterol HDL Cholesterol Urine Urobilinogen 01/07/19 01/06/19 01/06/19 04:00 13:15 03:45 WBC RBC 3.81 L Gran % Lymph % (Auto) Creek % (Auto) Lymph # (Auto) Seg Neutrophils % Lymphocytes % 12 L POC PT PT POC INR INR APTT 95 H Carbon Dioxide Anion Gap POC BUN BUN Glucose 107 H POC Glucose Calcium 8.3 L POC WB Ioniz Calcium Total Bilirubin Total Protein LDL Cholesterol, Calc Non-HDL Cholesterol HDL Cholesterol Urine Urobilinogen 01/06/19 01/06/19 01/06/19 03:45 03:45 02:45 WBC RBC Gran % Lymph % (Auto) Creek % (Auto) Lymph # (Auto) Seg Neutrophils % Lymphocytes % POC PT PT 20.0 H POC INR INR 1.7 H APTT 176 H* Carbon Dioxide Anion Gap POC BUN BUN Glucose 106 H POC Glucose Calcium 8.4 L POC WB Ioniz Calcium Total Bilirubin Total Protein LDL Cholesterol, Calc Non-HDL Cholesterol HDL Cholesterol Urine Urobilinogen 01/05/19 01/05/19 01/05/19 17:15 12:41 04:00 WBC RBC Gran % Lymph % (Auto) Creek % (Auto) Lymph # (Auto) Seg Neutrophils % Lymphocytes % POC PT PT 18.6 H 19.9 H POC INR INR 1.6 H 1.7 H APTT Carbon Dioxide Anion Gap POC BUN BUN Glucose POC Glucose Calcium POC WB Ioniz Calcium Total Bilirubin Total Protein LDL Cholesterol, Calc 128 H Non-HDL Cholesterol 138 H HDL Cholesterol 38 L Urine Urobilinogen 01/05/19 01/05/19 01/04/19 04:00 04:00 21:15 WBC RBC 3.75 L Gran % Lymph % (Auto) Creek % (Auto) Lymph # (Auto) Seg Neutrophils % 85 H Lymphocytes % 2 L POC PT PT POC INR INR APTT Carbon Dioxide 20 L Anion Gap 17.0 H POC BUN BUN 24 H Glucose 122 H 132 H POC Glucose Calcium 8.4 L POC WB Ioniz Calcium Total Bilirubin 1.2 H Total Protein 5.8 L LDL Cholesterol, Calc Non-HDL Cholesterol HDL Cholesterol Urine Urobilinogen 01/04/19 01/04/19 01/04/19 21:15 21:15 21:15 WBC RBC Gran % 80.1 H Lymph % (Auto) 6.4 L Creek % (Auto) 12.8 H Lymph # (Auto) 0.5 L Seg Neutrophils % Lymphocytes % POC PT 18.1 H PT POC INR 1.5 H INR APTT Carbon Dioxide Anion Gap POC BUN 26 H BUN Glucose POC Glucose 137 H Calcium POC WB Ioniz Calcium 1.09 L Total Bilirubin Total Protein LDL Cholesterol, Calc Non-HDL Cholesterol HDL Cholesterol Urine Urobilinogen 01/04/19 11:34 WBC RBC Gran % Lymph % (Auto) Creek % (Auto) Lymph # (Auto) Seg Neutrophils % Lymphocytes % POC PT PT POC INR INR APTT Carbon Dioxide Anion Gap POC BUN BUN Glucose POC Glucose Calcium POC WB Ioniz Calcium Total Bilirubin Total Protein LDL Cholesterol, Calc Non-HDL Cholesterol HDL Cholesterol Urine Urobilinogen 4.0 A Meds: Medications Acetaminophen (Tylenol) 650 mg PO Q4-6HP PRN; Protocol PRN Reason: PAIN/FEVER > 101 Amiodarone HCl (Cordarone) 100 mg PO [facility] Last Admin: 01/06/19 08:42 Dose: 100 mg Documented by: Atorvastatin Calcium (Lipitor) 40 mg PO DAILY [facility] Last Admin: 01/06/19 10:35 Dose: 40 mg Documented by: Heparin Sodium/Dextrose 25,000 (unit/ Premix) 500 mls @ 20.448 mls/hr IV .Q24H [facility]; Protocol Last Admin: 01/07/19 03:06 Dose: 10 unit/kg/hr, 14.606 mls/hr Documented by: Levothyroxine Sodium (Synthroid) 100 mcg PO ACB [facility] Last Admin: 01/06/19 08:39 Dose: 100 mcg Documented by: Sodium Chloride (Saline Flush) 10 ml IV Q8 [facility] Last Admin: 01/07/19 05:49 Dose: Not Given Documented by: Warfarin Sodium (Coumadin Per Pharmacy) 1 order PO DAILY@1400 [facility] Last Admin: 01/06/19 14:13 Dose: 1 order Documented by: Medical - PN: A/P - Time Spent With Patient Total time spent is greater than 50% in coordination of care (as documented) at patient's floor/unit and/or counseling patient: - Narrative A/P Narrative: A: *MRI showing evidence of ischemia/stroke left basal ganglia: right-side weakness resolved -CTA showed evidence of 70% IC narrowing & plaque-discussed w/neurologist at [place] who reviewed CTA stating narrowing is around 50% & did not recom mend any procedure -carotid u/s with 50-69% left ICA *Mechanical mitral valve: -Echocardiogram pending *Probable atrial fibrillation *Hypothyroidism: P: -Started her on heparin infusion with a subtherapeutic INR. Neurologist agreed as her stroke is tiny - Pharmacy to dose Coumadin -Strongly encourage the patient to keep the INR 2.5-3.5 and check at least 2 times weekly. Patient was taking twice a month -ASA discontinued as recommended by neurology when heparin infusion started. Dr. wong's initial consult stated "consider low dose ASA", may start later. -Started on atorvastatin 40mg -Physical therapy evaluation and swallow eval done -home amiodarone continue -home diuretics held for now -f/u with Dr. Black for stenosis -DVT prophylaxis: heparin - warfarin bridge per pharmacy Medical - PN: Qual - Stroke Onset of Symptoms Date: 01/04/19 Onset of Symptoms Time: 13:30 Symptom Onset Unknown: No
[2019-01-07] MEDS: LEVOTHYROXINE 100 MCG TABLET PO SCH (08:49)
[2019-01-07] MEDS: AMIODARONE HCL 200 MG TABLET PO SCH (08:49)
[2019-01-07] MEDS: ATORVASTATIN 20 MG TABLET PO SCH (08:50)
--- NOTE | 2019-01-07 10:16 | Discharge Summary ---
Medical - DS: Prov Patient information: Note initiated : 01/07/19 at 10:11 am Service Date, if different from initiated Date: [] Patient: Crystal Conley 68 y/o F admitted on 01/05/19 for stroke symptoms. Chief Complaint: [] Date of admission: 01/05/19 01:05 Discharge date: 01/08/19 Primary care physician: Shaina Sanchez Consults: 01/04/19 Consult to Physician [CONS] Stat Comment: Consulting Provider: Jolanta Reina Reason For Exam: Physician to Consult Medical - DS: Meds - Discharge Medications Prescriptions: Aspirin [Adult Aspirin Regimen] 81 mg PO DAILY #30 tablet. Warfarin [Coumadin] 3.5 mg PO DAILY #30 tab Transmission Status: Pending to [facility] Atorvastatin [Lipitor] 40 mg PO DAILY #30 tab Enoxaparin [Lovenox] 80 mg SQ BID #1 syringe Transmission Status: Pending to [facility] Active and Home Medications: Home Medications Amiodarone HCl [Pacerone] 100 mg PO DAILY 12/12/16 [History Confirmed 01/05/19 Last Taken 01/03/19 21:00] Warfarin [Coumadin] 2.5 mg PO DAILY 12/12/16 [History Confirmed 01/05/19 Last Taken 01/03/19 21:00] cholecalciferol (vitamin D3) 1 each PO QDAY 10/27/18 [History Confirmed 01/05/19 Last Taken 01/04/19 08:00] hydrocodone 5 mg-acetaminophen 325 mg tablet 1 tab PO Q6HP PRN tab 10/27/18 [History Confirmed 01/05/19 Last Taken Unknown] levothyroxine 100 mcg tablet 100 mcg PO QDAY 10/27/18 [History Confirmed 01/05/19 Last Taken 01/03/19 21:00] spironolactone 25 mg tablet 25 mg PO PRN tab 10/27/18 [History Confirmed 01/05/19 Last Taken 12/25/18 21:00] vitamin B complex 1 each PO QDAY 10/27/18 [History Confirmed 01/04/19 Last Taken Unknown] furosemide 20 mg tablet 20 mg PO DAILY PRN tab 11/24/18 [History Confirmed 01/04/19 Last Taken Unknown] Home Medications Amiodarone HCl [Pacerone] 100 mg PO DAILY 12/12/16 [History Confirmed 01/05/19 Last Taken 01/03/19 21:00] cholecalciferol (vitamin D3) 1 each PO QDAY 10/27/18 [History Confirmed 01/05/19 Last Taken 01/04/19 08:00] hydrocodone 5 mg-acetaminophen 325 mg tablet 1 tab PO Q6HP PRN tab 10/27/18 [History Confirmed 01/05/19 Last Taken Unknown] levothyroxine 100 mcg tablet 100 mcg PO QDAY 10/27/18 [History Confirmed 01/05/19 Last Taken 01/03/19 21:00] spironolactone 25 mg tablet 25 mg PO PRN tab 10/27/18 [History Confirmed 01/05/19 Last Taken 12/25/18 21:00] vitamin B complex 1 each PO QDAY 10/27/18 [History Confirmed 01/04/19 Last Taken Unknown] furosemide 20 mg tablet 20 mg PO DAILY PRN tab 11/24/18 [History Confirmed 01/04/19 Last Taken Unknown] Aspirin [Adult Aspirin Regimen] 81 mg PO DAILY #30 tablet.dr 01/07/19 [Rx Last Taken Unknown] Atorvastatin [Lipitor] 40 mg PO DAILY #30 tab 01/07/19 [Rx Last Taken Unknown] Enoxaparin [Lovenox] 80 mg SQ BID #1 syringe 01/08/19 [Rx Last Taken Unknown] Warfarin [Coumadin] 3.5 mg PO DAILY #30 tab 01/08/19 [Rx Last Taken Unknown] STOP THE LOVENOX WHEN INR 2.5 OR HIGHER Medical - DS: Hosp Hospital Course: Ms. Conley is a 68 year old F This is a 68-year-old female with history of mitral mechanical valve 5 years ago, on hydrocodone, diuretics, amiodarone for probable atrial fibrillation. She was brought to the ER because of sudden onset of right upper and lower extremity weakness. Patient underwent some complicated dental cleaning this sunil she was very anxious and her blood pressure was in the 200. After the procedure she went home. She also received a dose of amoxicillin preprocedure. Around noon at home she started having right upper and lower extremity weakness by the time she gets to the ER her symptoms resolved and ER physician discussed with the neurology did not recommend TPA. But patient again developed the symptoms CT scan was unremarkable and we communicated with the neurology and her symptoms improved since this was intermittent symptoms and completely resolved neurology did not recommend any thrombolytics. She was admitted to our facility for further management 01/05- Her symptoms completely resolved Pending INR level MRI showing evidence of stroke CT of the neck showing unstable plaque at the left carotid bifurcation Neurology consult 01/06-discussed with a neurologist and he did not recommend any procedure for the left carotid narrowing and plaque seen at the bifurcation. Dr. Angel neurologist at [facility] recommended starting the patient on heparin infusion until better INR more than 2.5. He recommended stopping aspirin. Recommended ordering carotid ultrasound to follow-up on the carotid narrowing better. Patient remained asymptomatic her right-sided weakness completely resolved. Working with the physical therapy and Occupational Therapy 01/07 per neurology note by Dr. George, he did state "consider addition of low dose aspirin", not sure where recommendation to stop aspirin was mentioned but I suspect it was recommened to stop by Dr. Angel when heparin infusion was recommended to start. No overnight events. No new complaints patient. 01/08 No new complaints. No overnight events. Desiring to go home. INR creeping up, currently 1.8. They were discharged. We will go home on Lovenox and follow-up INR with PCP. INSTRUCTED THE PATIENT TO STOP THE LOVENOX WHEN INR 2.5 OR HIGHER A: *MRI showing evidence of ischemia/stroke left basal ganglia: right-side weakness resolved -CTA showed evidence of 70% IC narrowing & plaque-discussed w/neurologist at [facility] who reviewed CTA stating narrowing is around 50% & did not recom mend any procedure -carotid u/s with 50-69% left ICA -echo EF 53%, Pulm HTN, no thrombus *Mechanical mitral valve: Discharge diagnosis: Stroke left basal ganglia mechanical mitral valve Secondary discharge diagnosis: Hypothyroidism - Time Spent with Patient Total time spent providing and/or coordinating discharge services: Greater than 30 minutes Medical - DS: Exam - Constitutional Vitals: Vital Signs Temp Pulse Resp BP BP Pulse Ox 01/07/19 08:45 97.8 F 16 116/56 99 01/07/19 04:00 97.8 F 50 L 16 120/59 100 01/07/19 00:00 98.2 F 54 L 14 108/57 98 01/06/19 19:48 97.7 F 55 L 16 141/55 100 01/06/19 15:44 98.0 F 16 109/42 120/47 99 01/06/19 12:00 97.7 F 52 L 18 125/52 100 Intake and Output 01/06/19 01/07/19 01/07/19 21:59 05:59 13:59 Intake Total 350 311 480 Output Total 250 1125 425 Balance 100 -814 55 Intake: IV 311 Heparin/D5w 25,000 Unit In 311 Premix 1 Bag @ 14 UNIT/KG/HR 20 .448 mls/hr IV .Q24H [facility] Rx#: [id number] Oral 350 480 Output: Void Amount 250 1125 425 Other: Meal Breakfast Percent of Meal Consumed 100% Feeding Ability Independent Urine Appearance Clear Urine Color Dark Yellow Dark Yellow Urine Odor Strong Normal Weight 73.936 kg 70.534 kg Patient Weight 01/08/19 05:59 Weight 70.534 kg Medical - DS: Data Labs on day of discharge: Labs from last 24 hours 01/07/19 01/07/19 01/07/19 04:00 04:00 04:00 WBC 4.3 L RBC 3.95 L Hgb 12.9 Hct 38.9 MCV 98.4 MCH 32.6 MCHC 33.1 RDW 12.7 Plt Count 211 MPV 8.4 Total Counted 100 Seg Neutrophils % 70 Band Neutrophils % Not Reportable Lymphocytes % 19 Monocytes % (Manual) 10 Eosinophils % (Manual) 1 Platelet Estimate Normal RBC Morphology Normal PT 19.2 H INR 1.6 H APTT 93 H Sodium Potassium Chloride Carbon Dioxide Anion Gap BUN Creatinine GFR Calculation Glucose Calcium Total Bilirubin AST ALT Alkaline Phosphatase Total Protein Albumin Globulin Albumin/Globulin Ratio 01/07/19 01/06/19 04:00 13:15 WBC RBC Hgb Hct MCV MCH MCHC RDW Plt Count MPV Total Counted Seg Neutrophils % Band Neutrophils % Lymphocytes % Monocytes % (Manual) Eosinophils % (Manual) Platelet Estimate RBC Morphology PT INR APTT 95 H Sodium 139 Potassium 4.1 Chloride 103 Carbon Dioxide 27 Anion Gap 9.0 BUN 20 Creatinine 0.8 GFR Calculation 75 Glucose 107 H Calcium 8.3 L Total Bilirubin 0.6 AST 18 ALT 15 Alkaline Phosphatase 59 Total Protein 6.1 Albumin 3.3 Globulin 2.8 Albumin/Globulin Ratio 1.2 Medical - DS: A/P - Patient/Caregiver Discharge Instructions Activity: increase activity as tolerated Diet: Cardiac Additional Instructions: INR check in 2 days follow-up with pharmacy and PCP. STOP THE LOVENOX WHEN INR 2.5 OR HIGHER Prescriptions: Aspirin [Adult Aspirin Regimen] 81 mg PO DAILY #30 tablet. Warfarin [Coumadin] 3.5 mg PO DAILY #30 tab Transmission Status: Pending to [facility] Atorvastatin [Lipitor] 40 mg PO DAILY #30 tab Enoxaparin [Lovenox] 80 mg SQ BID #1 syringe Transmission Status: Pending to [facility] Other Amb Orders: Prothrombin Time INR Time Frame: 2 Days, Location: None Selected - Follow up Plan Follow up with: Shaina Sanchez ARNP [Primary Care Provider] - 01/09/19 9:45 am New Jon MD [Physician] - Sylvester Black MD [Physician] - (left ICA stenosis) Disposition: Home, Self-Care Care Plan Goals: This discharge packet is provided to you to help keep you informed about your care. We want to ensure you get everything you need when you go home. You will also be receiving a call from us in a few days to follow up with you and see how you are doing since your discharge. This gives us a chance to listen to any concerns you maybe experiencing since you were discharged or any additional needs you may have, as well as providing us feedback on your care experience. We strive to always provide excellent care and thank you for your feedback and for choosing [facility]. Prognosis: Fair Rehab Potential: Fair Overall status at discharge: patient is back to baseline
[2019-01-07] MEDS ORDERED: WARFARIN 2.5 MG TABLET PO ONE (14:00)
[2019-01-08] MEDS: 0.9 % SODIUM CHLORIDE 10 ML SYRINGE IV SCH (04:41)
[2019-01-08 06:41] LABS: INR 1.8 (0.9-1.1); Prothrombin Time 20.4 sec (11.9-14.5)
--- NOTE | 2019-01-08 07:06 | Internal Med Progress Note ---
Medical - PN: Subj Patient information: Note initiated : 01/08/19 at 7:05 am Service Date, if different from initiated Date: [] Patient: Crystal Conley a 68 y/o F admitted on 01/05/19 for stroke symptoms. Chief Complaint: [] Interval history: Ms. Conley is a 68 year old F This is a 68-year-old female with history of mitral mechanical valve 5 years ago, on hydrocodone, diuretics, amiodarone for probable atrial fibrillation. She was brought to the ER because of sudden onset of right upper and lower extremity weakness. Patient underwent some complicated dental cleaning this morning she was very anxious and her blood pressure was in the 200. After the procedure she went home. She also received a dose of amoxicillin preprocedure. Around noon at home she started having right upper and lower extremity weakness by the time she gets to the ER her symptoms resolved and ER physician discussed with the neurology did not recommend TPA. But patient again developed the symptoms CT scan was unremarkable and we communicated with the neurology and her symptoms improved since this was intermittent symptoms and completely resolved neurology did not recommend any thrombolytics. She was admitted to our facility for further management 01/05- Her symptoms completely resolved Pending INR level MRI showing evidence of stroke CT of the neck showing unstable plaque at the left carotid bifurcation Neurology consult 01/06-discussed with a neurologist and he did not recommend any procedure for the left carotid narrowing and plaque seen at the bifurcation. Dr. Angel neurologist at [facility] recommended starting the patient on heparin infusion until better INR more than 2.5. He recommended stopping aspirin. Recommended ordering carotid ultrasound to follow-up on the carotid narrowing better. Patient remained asymptomatic her right-sided weakness completely resolved. Working with the physical therapy and Occupational Therapy 01/07 per neurology note by Dr. Wong, he did state "consider addition of low dose aspirin", not sure where recommendation to stop aspirin was mentioned but I suspect it was recommened to stop by Dr. Angel when heparin infusion was recommended to start. No overnight events. No new complaints patient. 01/08 No new complaints. No overnight events. Desiring to go home. INR creeping up, currently 1.8. Review of Systems: denies headache/fever/chills/nausea/vomiting/chest or abdominal pain/cough/dyspnea/diarrhea. Otherwise see above. - Constitutional Vitals: Vital Signs Temp Pulse Resp BP Pulse Ox 97.8 F 46 L 16 125/52 100 01/08/19 03:00 01/08/19 03:00 01/08/19 03:00 01/08/19 03:00 01/08/19 03:00 Period Temp Pulse Resp BP Sys/Mai Pulse Ox Last 24 Hr 97.3 F-97.8 F 46-52 16-16 113-129/47-63 98-100 Intake and Output 01/07/19 01/08/19 01/08/19 21:59 05:59 13:59 Intake Total 740 Output Total 975 550 Balance -235 -550 Intake & Output: Intake & Output 01/07/19 01/08/19 01/08/19 21:59 05:59 13:59 Intake Total 740 Output Total 975 550 Balance -235 -550 Intake: Oral 740 Output: Void Amount 975 550 Other: Meal Dinner Percent of Meal Consumed 50% Feeding Ability Independent Urine Appearance Clear Clear Urine Color Dark Yellow Dark Yellow Urine Odor Strong Strong Exam: General: Alert, Awake, No acute Distress Eyes/N/T: EOMI, Head/Neck: neck supple, CV: RRR, No murmurs, Pulm: Clear b/l, no wheezing/rhonchi/rales Abd: soft, nontender, +BS x4 Ext: no clubbing/cyanosis/edema Neuro: Alert, awake, moves all extremities, no apparent weakness right side Skin: warm/dry Medical - PN: Obj Da - Labs CBC & Chem 7: 01/07/19 04:00 01/07/19 04:00 Labs: Abnormal Lab Results 01/08/19 01/08/19 01/07/19 04:49 04:49 04:00 WBC RBC Seg Neutrophils % Lymphocytes % PT 20.4 H INR 1.8 H APTT 129 H 93 H Glucose Calcium Urine Urobilinogen 01/07/19 01/07/19 01/07/19 04:00 04:00 04:00 WBC 4.3 L RBC 3.95 L Seg Neutrophils % Lymphocytes % PT 19.2 H INR 1.6 H APTT Glucose 107 H Calcium 8.3 L Urine Urobilinogen 01/06/19 01/06/19 01/06/19 13:15 03:45 03:45 WBC RBC 3.81 L Seg Neutrophils % Lymphocytes % 12 L PT 20.0 H INR 1.7 H APTT 95 H Glucose Calcium Urine Urobilinogen 01/06/19 01/06/19 01/05/19 03:45 02:45 17:15 WBC RBC Seg Neutrophils % Lymphocytes % PT 18.6 H INR 1.6 H APTT 176 H* Glucose 106 H Calcium 8.4 L Urine Urobilinogen 01/05/19 01/05/19 01/04/19 12:41 04:00 11:34 WBC RBC Seg Neutrophils % 85 H Lymphocytes % 2 L PT 19.9 H INR 1.7 H APTT Glucose Calcium Urine Urobilinogen 4.0 A Meds: Medications Acetaminophen (Tylenol) 650 mg PO Q4-6HP PRN; Protocol PRN Reason: PAIN/FEVER > 101 Amiodarone HCl (Cordarone) 100 mg PO [facility] Last Admin: 01/07/19 08:49 Dose: 100 mg Documented by: Atorvastatin Calcium (Lipitor) 40 mg PO DAILY [facility] Last Admin: 01/07/19 08:50 Dose: 40 mg Documented by: Heparin Sodium/Dextrose 25,000 (unit/ Premix) 500 mls @ 20.448 mls/hr IV .Q24H [facility]; Protocol Last Admin: 01/07/19 03:06 Dose: 10 unit/kg/hr, 14.606 mls/hr Documented by: Levothyroxine Sodium (Synthroid) 100 mcg PO ACB [facility] Last Admin: 01/07/19 08:49 Dose: 100 mcg Documented by: Sodium Chloride (Saline Flush) 10 ml IV Q8 [facility] Last Admin: 01/08/19 04:41 Dose: Not Given Documented by: Warfarin Sodium (Coumadin Per Pharmacy) 1 order PO DAILY@1400 [facility] Last Admin: 01/07/19 14:09 Dose: 1 order Documented by: Medical - PN: A/P - Time Spent With Patient Total time spent is greater than 50% in coordination of care (as documented) at patient's floor/unit and/or counseling patient: - Narrative A/P Narrative: A: *MRI showing evidence of ischemia/stroke left basal ganglia: right-side weakness resolved -CTA showed evidence of 70% IC narrowing & plaque-discussed w/neurologist at [place] who reviewed CTA stating narrowing is around 50% & did not recommend any procedure -carotid u/s with 50-69% left ICA -echo EF 53%, Pulm HTN, no thrombus *Mechanical mitral valve: *Probable atrial fibrillation *Hypothyroidism: P: -Started her on heparin infusion with a subtherapeutic INR. Neurologist agreed as her stroke is tiny - Pharmacy to dose Coumadin -will switch to lovenox bid -Strongly encourage the patient to keep the INR 2.5-3.5 and check at least 2 times weekly. Patient was taking twice a month -ASA discontinued as recommended by neurology when heparin infusion started. Dr. wong's initial consult stated "consider low dose ASA", may start later. -Started on atorvastatin 40mg -Physical therapy evaluation and swallow eval done -home amiodarone continue -home diuretics held for now -f/u with Dr. Black for stenosis -DVT prophylaxis: lovenox - warfarin bridge per pharmacy Medical - PN: Qual - Stroke Onset of Symptoms Date: 01/04/19 Onset of Symptoms Time: 13:30 Symptom Onset Unknown: No
[2019-01-08] MEDS: LEVOTHYROXINE 100 MCG TABLET PO SCH (07:47)
[2019-01-08] MEDS: AMIODARONE HCL 200 MG TABLET PO SCH (08:49)
[2019-01-08] MEDS: ATORVASTATIN 20 MG TABLET PO SCH (08:49)
[2019-01-08] MEDS ORDERED: ENOXAPARIN 60 MG/0.6 ML SYRINGE SQ SCH (09:00)
[2019-01-08] MEDS: HEPARIN/D5W 25,000 UNIT in PREMIX 1 BAG IV SCH (11:05)
[2019-01-08] MEDS ORDERED: WARFARIN 3 MG TABLET PO ONE (14:00)
[2019-01-08] MEDS ORDERED: WARFARIN 1 MG TABLET PO SCH (14:00)
== END 2019-01-08 12:00 | disposition home or self-care (01) | DRG 65 ==
LOC: ED 21:05 → ICU 01-05 01:05
PROVIDERS: ADMIT Internal Medicine; ATTEND Internal Medicine

== ENCOUNTER 2019-07-31 16:16 | Inpatient (IN) ==
[2019-07-31] MEDS ORDERED: HYDROmorphone 0.5 MG/0.5 ML SYRINGE IV PRN (17:00)
[2019-07-31] MEDS ORDERED: ONDANSETRON 4 MG/2 ML VIAL IV ONE (17:00)
[2019-07-31] MEDS ORDERED: HYDROmorphone* 2 MG/ML VIAL ONE (17:13)
[2019-07-31] MEDS ORDERED: LACTATED RINGERS 1,000 ML IV SCH (17:30)
[2019-07-31] MEDS ORDERED: PHYTONADIONE 10 MG in 0.9 % SODIUM CHLORIDE 50 ML IV ONE (17:34)
--- NOTE | 2019-07-31 17:34 | XRay Report ---
CLINICAL INFORMATION: pain after fall. Artificial knee on right side COMPARISON: Postoperative films 05/23/2019 FINDINGS: Transverse, moderately comminuted fracture of the distal femoral metaphysis appreciated. The distal fragment is displaced one shaft width posteriorly and there is approximately 50 degrees anterior angulation of the fracture apex. A few small fracture fragments are seen in the patellofemoral joint. Moderate periarticular soft tissue swelling noted. The prostheses is anatomically aligned without loosening or infection IMPRESSION: Transverse, moderately displaced angulated fracture of the distal femoral metaphysis just above the femoral prostheses Interpreted and Authenticated by: Sylvester Huff 07/31/19
--- NOTE | 2019-07-31 17:36 | XRay Report ---
CLINICAL INFORMATION: pre op COMPARISON: 05/28/2019 : Chest CT 05/28/2019 FINDINGS: Cardiomegaly is unchanged. Mitral valve prostheses is in stable satisfactory position. There is moderate enlargement of the central pulmonary arteries compatible pulmonary hypertension no change. The peripheral pulmonary vessels are normal. Lungs are clear. No effusions. IMPRESSION: Moderate cardiomegaly with moderately enlarged central pulmonary arteries compatible pulmonary hypertension. No change radiographically from prior exam. No acute disease Interpreted and Authenticated by: Sylvester Huff 07/31/19
[2019-07-31] MEDS ORDERED: PHYTONADIONE 10 MG/ML AMPUL ONE (17:49)
[2019-07-31] MEDS: 0.9 % SODIUM CHLORIDE 250 ML IV SCH (17:54)
[2019-07-31] MEDS ORDERED: HYDROmorphone* 2 MG/ML VIAL IV ONE (18:02)
[2019-07-31 18:17] LABS: Hematocrit 35.5 % (34.1-44.9); Hemoglobin 11.9 g/dL (11.2-15.7); Mean Cell Volume 100.9 fL (80.0-100.0); Mean Corpuscular HGB Conc 33.5 g/dL (31.0-36.0); Mean Platelet Volume 10.7 fL (7.4-10.4); Platelet Count 137 K/mcL (140-440); RBC 3.52 M/mcL (3.59-5.38); Red Cell Distribution Width 13.3 % (11.5-14.5); WBC 7.3 K/mcL (4.50-11.00)
[2019-07-31 18:27] LABS: INR 2.8 (0.9-1.1)
[2019-07-31 18:35] LABS: ALT/SGPT 13 U/l (0-40); AST/SGOT 32 U/l (0-37); Albumin 3.3 gm/dL (3.2-5.2); Albumin/Globulin Ratio 1.1 (1.0-2.3); Alkaline Phosphatase 80 U/L (39-117); Bilirubin,Total 0.9 mg/dL (0.0-1.0); Blood Urea Nitrogen 9 mg/dl (8-23); Calcium 8.7 mg/dl (8.6-10.4); Carbon Dioxide 25 mmol/L (22-30); Chloride 103 mmol/L (96-108); Globulin 2.9 gm/dL (2.2-3.7); Glomerular Filtration Rate 88; Glucose 106 mg/dL (70-105)
[2019-07-31 19:05] LABS: Anisocytosis 1+ (NONE SEEN); Basophils % (Manual) 1 % (0-2); Eosinophils % (Manual) 1 % (0-7); Lymphocytes % 10 % (15-49); Macrocytosis 1+ (NONE SEEN); Monocytes % (Manual) 2 % (1-12); Platelet Estimate DECREASED (NORMAL); RBC Morphology ABNORM (NORMAL); Segmented Neutrophils % 86 % (38-78)
[2019-07-31 19:09] LABS: Appearance,Urine CLEAR; Bacteria,Urine 0 /hpf (0); Bilirubin,Urine NEG (NEG); Color,Urine YELLOW; Culture Indicated,Urine NO; Glucose,Urine (UA) NEGATIVE (NEG); Ketones,Urine NEG (NEG); Leukocyte Esterase,Urine NEG /uL (NEG); Nitrate,Urine NEG (NEG); Protein,Urine NEG (NEG); Specific Gravity,Urine 1.016 (1.000-1.035); Urine Blood NEG mg/dL (<0.03); Urine RBC 0 /hpf (0-1); Urine Squamous Epithelial Cell 0 /hpf (0-4); Urine WBC 0 /hpf (0-4); Urobilinogen,Urine NEG (NEG)
--- NOTE | 2019-07-31 19:26 | Emergency Department Note ---
Fall HPI - General Chief Complaint: Fall Stated Complaint: fell Time Seen by Provider: 07/31/19 16:38 Source: patient Mode of arrival: wheelchair - History of Present Illness HPI Narrative: This patient slipped and fell onto her right knee and has quite a bit of pain in the knee. Denies any other injuries. She did have a knee replacement done on that side a couple of months ago. - Related Data Home Medications Medication Instructions Recorded Confirmed Amiodarone HCl [Pacerone] 100 mg PO HS 12/12/16 07/31/19 cholecalciferol (vitamin D3) 2,000 units PO BID 10/27/18 07/31/19 hydrocodone 5 mg-acetaminophen 325 1 tab PO Q6HP PRN tab 10/27/18 07/31/19 mg tablet levothyroxine 100 mcg tablet 100 mcg PO DAILY 10/27/18 07/31/19 spironolactone 25 mg tablet 25 mg PO PRN tab 10/27/18 07/31/19 vitamin B complex 1 each PO DAILY 10/27/18 07/31/19 furosemide 20 mg tablet 20 mg PO PRN PRN tab 11/24/18 07/31/19 Aspirin [Adult Aspirin Regimen] 81 mg PO BID 05/17/19 07/31/19 Enoxaparin [Lovenox] 60 mg SQ BID 05/17/19 07/31/19 Ubidecarenone [Coq10] 50 mg PO DAILY 05/17/19 07/31/19 Warfarin [Coumadin] 2.5 mg PO DAILY 05/17/19 07/31/19 buPROPion HCL [Bupropion Xl] 150 mg PO DAILY 05/17/19 07/31/19 Previous Rx's Medication Instructions Recorded Atorvastatin [Lipitor] 40 mg PO DAILY #30 tab 01/07/19 oxyCODONE HCL/ACETAMINOPHEN 1 - 2 tab PO Q6 #70 tab 05/24/19 [Endocet 5-325 Tablet] Allergies Allergy/AdvReac Type Severity Reaction Status Date / Time codeine AdvReac Mild Nausea Verified 05/28/19 04:56 metoprolol AdvReac Mild Hypotension Verified 05/28/19 04:56 Review of Systems All systems ED: reviewed and negative except as stated. Fall PMH - Past Medical History Medical history: Reports: atrial fibrillation, CAD (coronary artery disease), chronic anticoagulation, hypertension, thyroid disease, valvular heart disease [employer] history: Reports: bilateral tubal ligation (2) - Social History smoking status: Never smoker Alcohol use: Reports: Occasionally Physical Exam Patient's right knee is little swollen and tender Limitations: no limitations General appearance: alert Head: atraumatic Eye: Present: normal appearance ENT: Present: normal exam Neck: Present: normal inspection Chest: Present: normal inspection Respiratory: Present: normal lung sounds bilaterally Cardiovascular: Present: regular rate, normal rhythm Abdominal: Present: soft. Absent: distention, tenderness Neurological: Present: alert Psychiatric: Present: normal affect Skin: Present: warm, dry Course Vital Signs Temperature 98.1 F 07/31/19 16:21 Pulse Rate 59 L 07/31/19 16:21 Respiratory Rate 16 07/31/19 16:21 Blood Pressure 123/64 07/31/19 16:21 Pulse Oximetry (%) 100 07/31/19 16:21 Temperature 98.1 F 07/31/19 16:21 Pulse Rate 73 07/31/19 18:57 Respiratory Rate 20 07/31/19 18:57 Blood Pressure 135/76 07/31/19 18:57 Pulse Oximetry (%) 100 07/31/19 18:57 Fall - MDM Narrative Medical decision making narrative: This patient has a fracture of her distal femur right before the artificial knee replacement. It is displaced. Discussed case Dr. Glover is planning to take her to surgery [facility]. This patient is on Coumadin for mitral valve prosthesis. Dr. Cardoza will admit the patient to the hospital. She will be given FFP to reverse her INR - Lab Data Lab results reviewed: Yes I reviewed the patient's lab results. Result diagrams: 07/31/19 17:14 07/31/19 17:14 Lab Results 07/31/19 07/31/19 07/31/19 Range/Units 17:14 17:14 17:14 WBC 7.3 (4.50-11.00) K/mcL RBC 3.52 L (3.59-5.38) M/mcL Hgb 11.9 (11.2-15.7) g/dL Hct 35.5 (34.1-44.9) % MCV 100.9 H (80.0-100.0) fL MCH 33.8 (26.0-34.0) pg MCHC 33.5 (31.0-36.0) g/dL RDW 13.3 (11.5-14.5) % Plt Count 137 L (140-440) K/mcL MPV 10.7 H (7.4-10.4) fL Total Counted 100 Seg Neutrophils % 86 H (38-78) % Band Neutrophils % Not Reportable Lymphocytes % 10 L (15-49) % Monocytes % (Manual) 2 (1-12) % Eosinophils % (Manual) 1 (0-7) % Basophils % (Manual) 1 (0-2) % Platelet Estimate Decreased (NORMAL) RBC Morphology Abnorm A (NORMAL) Anisocytosis 1+ A (NONE SEEN) Macrocytosis 1+ A (NONE SEEN) PT 30.0 H (11.9-14.5) sec INR 2.8 H (0.9-1.1) Sodium 140 (133-145) mmol/L Potassium 3.5 (3.3-5.1) mmol/L Chloride 103 (96-108) mmol/L Carbon Dioxide 25 (22-30) mmol/L Anion Gap 12.0 (8-16) BUN 9 (8-23) mg/dl Creatinine 0.7 (0.6-1.1) mg/dl GFR Calculation 88 Glucose 106 H (70-105) mg/dL Calcium 8.7 (8.6-10.4) mg/dl Total Bilirubin 0.9 (0.0-1.0) mg/dL AST 32 (0-37) U/l ALT 13 (0-40) U/l Alkaline Phosphatase 80 (39-117) U/L Total Protein 6.2 (5.9-8.4) gm/dL Albumin 3.3 (3.2-5.2) gm/dL Globulin 2.9 (2.2-3.7) gm/dL Albumin/Globulin Ratio 1.1 (1.0-2.3) Urine Color Urine Appearance Urine pH (5.0-9.0) Ur Specific [address] (1.000-1.035) Urine Protein (NEG) mg/dL Urine Glucose (UA) (NEG) mg/dL Urine Ketones (NEG) mg/dL Urine Occult Blood (<0.03) mg/dL Urine Nitrate (NEG) Urine Bilirubin (NEG) mg/dL Urine Urobilinogen (NEG) mg/dL Ur Leukocyte Esterase (NEG) /uL Urine RBC (0-1) /hpf Urine WBC (0-4) /hpf Ur Squamous Epith Cells (0-4) /hpf Urine Bacteria (0) /hpf Ur Culture Indicated? 07/31/19 Range/Units 18:25 WBC (4.50-11.00) K/mcL RBC (3.59-5.38) M/mcL Hgb (11.2-15.7) g/dL Hct (34.1-44.9) % MCV (80.0-100.0) fL MCH (26.0-34.0) pg MCHC (31.0-36.0) g/dL RDW (11.5-14.5) % Plt Count (140-440) K/mcL MPV (7.4-10.4) fL Total Counted Seg Neutrophils % (38-78) % Band Neutrophils % Lymphocytes % (15-49) % Monocytes % (Manual) (1-12) % Eosinophils % (Manual) (0-7) % Basophils % (Manual) (0-2) % Platelet Estimate (NORMAL) RBC Morphology (NORMAL) Anisocytosis (NONE SEEN) Macrocytosis (NONE SEEN) PT (11.9-14.5) sec INR (0.9-1.1) Sodium (133-145) mmol/L Potassium (3.3-5.1) mmol/L Chloride (96-108) mmol/L Carbon Dioxide (22-30) mmol/L Anion Gap (8-16) BUN (8-23) mg/dl Creatinine (0.6-1.1) mg/dl GFR Calculation Glucose (70-105) mg/dL Calcium (8.6-10.4) mg/dl Total Bilirubin (0.0-1.0) mg/dL AST (0-37) U/l ALT (0-40) U/l Alkaline Phosphatase (39-117) U/L Total Protein (5.9-8.4) gm/dL Albumin (3.2-5.2) gm/dL Globulin (2.2-3.7) gm/dL Albumin/Globulin Ratio (1.0-2.3) Urine Color Yellow Urine Appearance Clear Urine pH 6.0 (5.0-9.0) Ur Specific [address] 1.016 (1.000-1.035) Urine Protein Neg (NEG) mg/dL Urine Glucose (UA) Negative (NEG) mg/dL Urine Ketones Neg (NEG) mg/dL Urine Occult Blood Neg (<0.03) mg/dL Urine Nitrate Neg (NEG) Urine Bilirubin Neg (NEG) mg/dL Urine Urobilinogen Neg (NEG) mg/dL Ur Leukocyte Esterase Neg (NEG) /uL Urine RBC 0 (0-1) /hpf Urine WBC 0 (0-4) /hpf Ur Squamous Epith Cells 0 (0-4) /hpf Urine Bacteria 0 (0) /hpf Ur Culture Indicated? No - Radiology Data Radiology results reviewed: Yes I reviewed the patient's radiology results. Disposition Pt seen by [facility]MER/PA only: No Clinical Impression: Femur fracture, right Disposition: Xfer As Inpt ([facility]) Condition: Good Referrals: Shaina Sanchez ARNP [Primary Care Provider] - Time of Disposition: 19:26
[2019-07-31] MEDS ORDERED: 0.9 % SODIUM CHLORIDE 1,000 ML IV ONE (19:36)
--- NOTE | 2019-07-31 19:41 | History and Physical Report ---
DATE OF ADMISSION: 07/31/2019 IDENTIFICATION: Crystal is a 69-year-old female. CHIEF COMPLAINT: Right periprosthetic femur fracture. HISTORY: Crystal had a total knee arthroplasty in May. She did have some unclear complications of clotting perioperatively and required some sort of embolectomy done by Dr. Black. We are exploring this further, but she has gone on to do well; however, sustained a fall today, had immediate pain and deformity, right lower extremity was unable to bear weight and was transferred to the emergency room at [facility] where radiographs have demonstrated a fracture of the distal femur above her prosthesis. I am called now for further evaluation and management. PAST MEDICAL HISTORY: Significant for valvular heart disease and also some rhythm disturbance, potentially atrial fibrillation. PAST SURGICAL HISTORY: Includes this total knee arthroplasty. MEDICATIONS: Include amiodarone, Coumadin, vitamin D, spironolactone, and furosemide. ALLERGIES: CODEINE AND METOPROLOL. REVIEW OF SYSTEMS: She has recently been healthy and has had no acute changes, was actually doing well. Denies recent constitutional symptoms, fever, chills, shortness of breath, cough, diarrhea, or urinary problems. PHYSICAL EXAMINATION: GENERAL: She is awake and alert. HEAD: Normocephalic, atraumatic. EYES: PERRLA. Conjunctivae clear. ENT: Within normal limits. HEART: Demonstrates valvular heart sounds consistent with her valve replacement and the rate is well controlled. LUNGS: Clear bilaterally. ABDOMEN: Benign. LOWER EXTREMITIES: Her right lower extremity is carefully positioned. It does show very notable deformity. She does seem grossly without neurologic deficit. She has generalized sensation intact. She has pain such that motor is difficult to examine. Pulses are difficult to elicit, but the extremity generally seems warm. IMAGING DATA: Radiographs demonstrate a fracture with significant angulation displacement. This is just above the supracondylar region of the prosthesis. IMPRESSION: Supracondylar femur fracture. This does need operative reduction and stabilization. We have discussed this with the patient. The risks, complications, and limitations of surgical intervention have been discussed. She understands these well and wishes to proceed as soon as possible. We will proceed with FFP and vitamin K. GDD:lynne Job ID: [id number] Doc ID: [id number] Mu Glover MD
--- NOTE | 2019-07-31 20:16 | Internal Med History&Physical ---
Medical - H&P: [facility] Patient information: Note initiated : 07/31/19 at 8:13 pm Service Date, if different from initiated Date: [] Patient: Crystal Conley a 69 y/o F admitted on for fell. Chief Complaint: [] Chief complaint: Fall with right knee injury History of present illness: Ms. Conley is a 69 year old F with a history of mechanical mitral valve on anticoagulation/atrial fibrillation on amiodarone who was in her usual state of health returned from [facility] this afternoon and slipped at home injuring her right knee. Following the fall she was unable to move or walk due to significa nt pain. She was brought into the ER for evaluation. Initial work-up was consistent with right femoral supracondylar fracture. Orthopedic was consulted. Of note she recently underwent right knee surgery by Dr. Arnold. It was decided patient will undergo operative intervention later in the evening. She is currently on Coumadin for history of mechanical valve with INR 2.8. She received 2 units of FFP/10 mg vitamin K. However INR remained elevated despite above measures and subsequently hospitalist service was consulted for inpatient admission while patient undergo planned surgery in the next 24 hours once INR less than 1.5. I discussed the case with Dr. Glover orthopedics. At time evaluation patient is alert and oriented. She was able to answer most questions. She denies seizure-like episode or loss of consciousness. She denies dizziness palpitation. She denies incontinence. She denied recent fever chills. She follows up with primary care physician regularly. She underwent mechanical valve placement in 2012. Review of systems A 10 point review system was performed and is negative except for ones cussed above Medical - H&P: PMH Medical history: Elevated hemidiaphragm (Chronic) right Pulmonary hypertension (Chronic) Hiatal hernia (Chronic) Abnormal finding on CT scan (Chronic) Atrial fibrillation (Chronic) Essential and other specified forms of tremor (Chronic) Joint pain (Chronic) Easy bruising (Chronic) Vertigo (Chronic) Dizziness (Chronic) Major depressive disorder (Chronic) Osteoarthritis of right knee (Chronic) Osteoarthritis of neck (Chronic) Osteopenia (Chronic) Hypothyroidism (Chronic) CKD (chronic kidney disease), stage III (Chronic) Peripheral edema (Chronic) Fatigue (Chronic) Mitral valve disorder (Chronic) CHF (congestive heart failure) (Chronic) UTI (urinary tract infection) (Acute) Other cervical disc degeneration at C4-C5 level (Acute) Chest pain (Chronic) A-fib (Chronic) Surgical History Hx of prosthetic mitral valve (Chronic) H/O mitral valve replacement (Chronic) 06/2012; 07/2012 History of cardiac catheterization (Chronic) History of cardioversion (Chronic) Family History Sister A-fib Tremor Breast cancer Father Cancer Diabetes Mother Cancer Brother Pacemaker Social History marital status: occupational status: retired physical activity: walking smoking status: Former smoker smoking status stop date: 11/02/78 alcohol intake frequency: a few times a month substance use type: does not use Medical - H&P: Meds Home Medications Medication Instructions Recorded Confirmed Type Amiodarone HCl [Pacerone] 100 mg PO HS 12/12/16 07/31/19 History cholecalciferol (vitamin D3) 2,000 units PO BID 10/27/18 07/31/19 History hydrocodone 5 mg-acetaminophen 325 1 tab PO Q6HP PRN tab 10/27/18 07/31/19 History mg tablet levothyroxine 100 mcg tablet 100 mcg PO DAILY 10/27/18 07/31/19 History spironolactone 25 mg tablet 25 mg PO PRN tab 10/27/18 07/31/19 History vitamin B complex 1 each PO DAILY 10/27/18 07/31/19 History furosemide 20 mg tablet 20 mg PO PRN PRN tab 11/24/18 07/31/19 History Atorvastatin [Lipitor] 40 mg PO DAILY #30 tab 01/07/19 07/31/19 Rx Aspirin [Adult Aspirin Regimen] 81 mg PO BID 05/17/19 07/31/19 History Ubidecarenone [Coq10] 50 mg PO DAILY 05/17/19 07/31/19 History Warfarin [Coumadin] 2.5 mg PO DAILY 05/17/19 07/31/19 History buPROPion HCL [Bupropion Xl] 150 mg PO DAILY 05/17/19 07/31/19 History Allergies Allergy/AdvReac Type Severity Reaction Status Date / Time codeine AdvReac Mild Nausea Verified 05/28/19 04:56 metoprolol AdvReac Mild Hypotension Verified 05/28/19 04:56 Medical - H&P: Exam - Constitutional Vitals: Temp Pulse Resp BP Pulse Ox 98.1 F 69 16 105/48 99 07/31/19 19:54 07/31/19 20:09 07/31/19 20:09 07/31/19 20:04 07/31/19 20:09 Medical - H&P: Reslt - Labs CBC & Chem 7: 08/01/19 05:35 08/01/19 05:35 Labs: Short CBC 07/31/19 Range/Units 17:14 WBC 7.3 (4.50-11.00) K/mcL Hgb 11.9 (11.2-15.7) g/dL Hct 35.5 (34.1-44.9) % Plt Count 137 L (140-440) K/mcL BMP 07/31/19 17:14 Sodium 140 Potassium 3.5 Chloride 103 Carbon Dioxide 25 BUN 9 Creatinine 0.7 Glucose 106 H Calcium 8.7 Liver Function 07/31/19 Range/Units 17:14 Total Bilirubin 0.9 (0.0-1.0) mg/dL AST 32 (0-37) U/l ALT 13 (0-40) U/l Alkaline Phosphatase 80 (39-117) U/L Albumin 3.3 (3.2-5.2) gm/dL Urine 07/31/19 Range/Units 18:25 Urine Color Yellow Urine Appearance Clear Urine pH 6.0 (5.0-9.0) Ur Specific [place] 1.016 (1.000-1.035) Urine Protein Neg (NEG) mg/dL Urine Glucose (UA) Negative (NEG) mg/dL Medical - H&P: A/P (1) Femur fracture, right Current visit: Yes Status: Acute * Right distal supracondylar femur fracture-orthopedics on board. Will undergo operative intervention 24 hours. * Fracture mediated pain management will be as per orthopedics Hospitalist consult * Preop risk evaluation-high risk overall based on RCRI [place] [employer] risk stratification. Surgery and anesthesia specific risks will be discussed by individual care provider. There are no modifiable risk factors at this time except for elevated INR which will increase risk of bleeding. Currently being reversed with FFP and vitamin K. * Supratherapeutic INR-status post 10 mg vitamin K/2 units FFP. Repeat INR in the morning and use FFP if INR greater than 1.5 * Atrial fibrillation currently in sinus on amiodarone * History of mechanical mitral valve-patient will be started on heparin drip post surgery as a bridge until INR therapeutic. High risk thrombosis * Anxiety disorder on bupropion * History of prior CVA on aspirin/statin * Hypothyroidism on thyroxine * Full code * Prophylaxis-held at this time Plan * Inpatient admit * Supratherapeutic INR reversal with FFP/vitamin K * Operative intervention as per orthopedics * Pre-existing medical condition management as above * Pain management * Physical therapy * Discharge planning
[2019-07-31] MEDS ORDERED: ACETAMINOPHEN 650 MG/65 ML BOTTLE IV PRN (20:43)
[2019-07-31] MEDS ORDERED: guaiFENesin/CODEINE 10 ML UDC PO PRN (20:43)
[2019-07-31] MEDS ORDERED: MELATONIN 3 MG TABLET PO PRN (20:43)
[2019-07-31] MEDS ORDERED: BISACODYL 10 MG SUPP.RECT PR PRN (20:43)
[2019-07-31] MEDS ORDERED: ONDANSETRON 4 MG/2 ML VIAL IV PRN (20:43)
[2019-07-31] MEDS ORDERED: ACETAMINOPHEN 325 MG TABLET PO PRN (20:43)
[2019-07-31] MEDS ORDERED: ONDANSETRON 4 MG ODT TABLET SL PRN (20:43)
[2019-07-31] MEDS: 0.9 % SODIUM CHLORIDE 1,000 ML IV SCH (20:45)
[2019-07-31] MEDS ORDERED: HEPARIN 5,000 UNIT/ML VIAL SQ SCH (21:00)
[2019-07-31] MEDS: HYDROcodone/APAP 5/325MG TABLET PO PRN (21:25)
[2019-07-31] MEDS: DOCUSATE SODIUM 100 MG CAPSULE PO SCH (21:26)
[2019-07-31] MEDS: HYDROmorphone* 2 MG/ML VIAL IV PRN (21:26)
[2019-07-31] MEDS: AMIODARONE HCL 200 MG TABLET PO SCH (21:26)
[2019-07-31] MEDS: SENNOSIDES/DOCUSATE SODIUM 1 TAB TABLET PO SCH (21:28)
[2019-07-31] MEDS: ASPIRIN 81 MG TAB.CHEW PO SCH (21:28)
[2019-07-31] MEDS: 0.9 % SODIUM CHLORIDE 10 ML SYRINGE IV SCH (21:44)
[2019-08-01] MEDS: 0.9 % SODIUM CHLORIDE 10 ML SYRINGE IV SCH ×3 (04:30→21:43)
[2019-08-01] MEDS: HYDROmorphone* 2 MG/ML VIAL IV PRN ×2 (05:20→08:20)
[2019-08-01 06:32] LABS: Hematocrit 28.7 % (34.1-44.9); Hemoglobin 9.6 g/dL (11.2-15.7); Mean Cell Volume 101.4 fL (80.0-100.0); Mean Corpuscular HGB Conc 33.4 g/dL (31.0-36.0); Mean Platelet Volume 10.4 fL (7.4-10.4); Platelet Count 108 K/mcL (140-440); RBC 2.83 M/mcL (3.59-5.38); Red Cell Distribution Width 13.2 % (11.5-14.5); WBC 4.3 K/mcL (4.50-11.00)
[2019-08-01 06:40] LABS: ALT/SGPT 16 U/l (0-40); AST/SGOT 33 U/l (0-37); Albumin 2.8 gm/dL (3.2-5.2); Albumin/Globulin Ratio 1.1 (1.0-2.3); Alkaline Phosphatase 79 U/L (39-117); Bilirubin,Direct 0.3 mg/dL (0.0-0.3); Bilirubin,Total 1.1 mg/dL (0.0-1.0); Blood Urea Nitrogen 9 mg/dl (8-23); Calcium 8.1 mg/dl (8.6-10.4); Carbon Dioxide 23 mmol/L (22-30); Chloride 106 mmol/L (96-108); Globulin 2.6 gm/dL (2.2-3.7); Glomerular Filtration Rate 92; Glucose 89 mg/dL (70-105); Lactate Dehydrogenase 331 U/L (94-250); Triglycerides 47 mg/dl (<150)
[2019-08-01 06:45] LABS: INR 1.4 (0.9-1.1); Prothrombin Time 17.9 sec (11.9-14.5)
[2019-08-01] MEDS: LEVOTHYROXINE 100 MCG TABLET PO SCH (07:33)
[2019-08-01 07:48] LABS: Anisocytosis FEW (NONE SEEN); Eosinophils % (Manual) 2 % (0-7); Lymphocytes % 7 % (15-49); Macrocytosis 1+ (NONE SEEN); Monocytes % (Manual) 5 % (1-12); Platelet Estimate DECREASED (NORMAL); RBC Morphology ABNORM (NORMAL); Segmented Neutrophils % 86 % (38-78)
[2019-08-01] MEDS ORDERED: IPRATROPIUM/ALBUTEROL 3 ML AMPUL.NEB NEB PRN ×2 (08:04→17:49)
[2019-08-01] MEDS ORDERED: SCOPOLAMINE 1 PATCH PATCH TOPICAL PRN (08:04)
[2019-08-01] MEDS ORDERED: HEPARIN/D5W 25,000 UNIT in PREMIX 1 BAG IV SCH (09:00)
--- NOTE | 2019-08-01 10:24 | Internal Med Progress Note ---
Medical - PN: Subj Patient information: Note initiated : 08/01/19 at 10:21 am Service Date, if different from initiated Date: [] Patient: Crystal Conley a 69 y/o F admitted on 07/31/19 for fell. Chief Complaint: [] Interval history: Ms. Conley is a 69 year old F with a history of mechanical mitral valve on anticoagulation/atrial fibrillation on amiodarone who was in her usual state of health returned from [facility] this afternoon and slipped at home injuring her right knee. Following the fall she was unable to move or walk due to significant pain. She was brought into the ER for evaluation. Initial work-up was consistent with right femoral supracondylar fracture. Orthopedic was consulted. Of note she recently underwent right knee surgery by Dr. Arnold. It was decided patient will undergo operative intervention later in the evening. She is currently on Coumadin for history of mechanical valve with INR 2.8. She received 2 units of FFP/10 mg vitamin K. However INR remained elevated despite above measures and subsequently hospitalist service was consulted for inpatient admission while patient undergo planned surgery in the next 24 hours once INR less than 1.5. I discussed the case with Dr. Glover orthopedics. At time evaluation patient is alert and oriented. She was able to answer most questions. She denies seizure-like episode or loss of consciousness. She denies dizziness palpitation. She denies incontinence. She denied recent fever chills. She follows up with primary care physician regularly. She underwent mechanical valve placement in 2012. 07/31-INR 1.5. Due for surgery this morning. We will start heparin drip post surgery as a bridge until INR therapeutic. Will initiate Coumadin. Stable labs with hemoglobin 9.6. Pain well controlled. Will review postop - Constitutional Vitals: Vital Signs Temp Pulse Resp BP Pulse Ox 98.8 F 64 16 102/42 92 08/01/19 08:00 08/01/19 08:00 08/01/19 08:00 08/01/19 08:00 08/01/19 08:00 Period Temp Pulse Resp BP Sys/Ami Pulse Ox Last 24 Hr 98.1 F-99.2 F 59-73 14-24 87-136/42-76 92-100 Intake and Output 07/31/19 08/01/19 08/01/19 21:59 05:59 13:59 Intake Total 1333 100 Output Total 350 Balance 1333 -250 Weight 148 lb Intake & Output: Intake & Output 07/31/19 08/01/19 08/01/19 21:59 05:59 13:59 Intake Total 1333 100 Output Total 350 Balance 1333 -250 Weight 148 lb Intake: IV 1051 Sodium Chloride 0.9% 1,000 ml @ 1000 Wide Open IV BOLUS ONE Rx#: [id number] Aquamephy[place] 10 mg In Sodium 51 Chloride 0.9% 50 ml @ 50 mls/hr IV ONCE ONE Rx#:[id number] Oral 100 Blood Product 282 Output: Urine Catheter Amount 350 Other: Urine Appearance Clear Uretheral (Garvey) Clear Urine Color [place] Uretheral (Garvey) Light [place] Urine Odor Strong General appearance: no acute distress Exam: Alert oriented Nonlabored breathing No anxiety Nondistended abdomen Right knee immobilized Medical - PN: Obj Da - Labs CBC & Chem 7: 08/01/19 05:35 08/01/19 05:35 Labs: Abnormal Lab Results 08/01/19 08/01/19 08/01/19 05:35 05:35 05:35 WBC 4.3 L RBC 2.83 L Hgb 9.6 L Hct 28.7 L MCV 101.4 H Plt Count 108 L MPV Seg Neutrophils % 86 H Lymphocytes % 7 L RBC Morphology Abnorm A Anisocytosis Few A Macrocytosis 1+ A PT 17.9 H INR 1.4 H Glucose Calcium 8.1 L Total Bilirubin 1.1 H Lactate Dehydrogenase 331 H Total Protein 5.4 L Albumin 2.8 L 07/31/19 07/31/19 07/31/19 17:14 17:14 17:14 WBC RBC 3.52 L Hgb Hct MCV 100.9 H Plt Count 137 L MPV 10.7 H Seg Neutrophils % 86 H Lymphocytes % 10 L RBC Morphology Abnorm A Anisocytosis 1+ A Macrocytosis 1+ A PT 30.0 H INR 2.8 H Glucose 106 H Calcium Total Bilirubin Lactate Dehydrogenase Total Protein Albumin Meds: Medications Acetaminophen (Tylenol) 650 mg PO Q4-6HP PRN; Protocol PRN Reason: Per Pain Protocol/Fever > 101 Hydrocodone Bitart/Acetaminophen ([place]ar[place] 5/325mg) 1 tab PO Q6HP PRN; Protocol PRN Reason: Severe Pain Last Admin: 07/31/19 21:25 Dose: 1 tab Documented by: Amiodarone HCl (Cordarone) 100 mg PO [facility] Last Admin: 07/31/19 21:26 Dose: 100 mg Documented by: Aspirin (Aspirin) 81 mg PO BID [facility] Last Admin: 07/31/19 21:28 Dose: Not Given Documented by: Atorvastatin Calcium (Lipitor) 40 mg PO DAILY [facility] Bisacodyl (Dulcolax) 10 mg LA Q2-3DAYS PRN PRN Reason: Constipation Bupropion HCl (Wellbutrin Xl) 150 mg PO DAILY [facility] Docusate Sodium (Colace) 100 mg PO BID [facility] Last Admin: 07/31/19 21:26 Dose: 100 mg Documented by: Guaifenesin/Codeine Phosphate (Robitussin Ac) 10 ml PO Q4HP PRN PRN Reason: Cough Hydromorphone HCl (Dilaudid) 0 mg IV Q4HP PRN; Protocol PRN Reason: Per Pain Protocol Sodium Chloride (Sodium Chloride 0.9%) 1,000 mls @ 50 mls/hr IV .Q20H [facility] Stop: 08/03/19 08:42 Last Admin: 07/31/19 20:45 Dose: 50 mls/hr Documented by: Acetaminophen (Ofirmev) 650 mg in 65 mls @ 130 mls/hr IV Q6HP PRN; Protocol PRN Reason: Per Pain Protocol/Fever > 101 Iron Carb/Multivit/Winkler/Folic Acid (Multivitamin W/Minerals) 1 tab PO DAILY [facility] Levothyroxine Sodium (Synthroid) 100 mcg PO QAMAC [facility] Last Admin: 08/01/19 07:33 Dose: Not Given Documented by: Melatonin (Melatonin 3mg Tablet) 3 mg PO HSP PRN PRN Reason: Insomnia Ondansetron HCl (Zofran Odt) 4 mg SL Q4-6HP PRN; Protocol PRN Reason: Nausea And Vomiting Ondansetron HCl (Zofran) 4 mg IV Q4-6HP PRN; Protocol PRN Reason: Nausea And Vomiting Polyethylene Glycol (Miralax) 17 gm PO DAILYP PRN PRN Reason: Constipation Scopolamine (Transderm-Scop) 1 patch TOPICAL PREOP PRN PRN Reason: Nausea And Vomiting Senna/Docusate Sodium (Senna Plus Tablet) 1 tab PO [facility] Last Admin: 07/31/19 21:28 Dose: Not Given Documented by: Sodium Chloride (Saline Flush) 10 ml IV Q8 [facility] Last Admin: 08/01/19 04:30 Dose: 10 ml Documented by: Medical - PN: A/P - Time Spent With Patient Total time spent is greater than 50% in coordination of care (as documented) at patient's floor/unit and/or counseling patient: 25 - 35 minutes (1) Femur fracture, right Status: Acute Assessment and plan: * Right distal supracondylar femur fracture-surgery today. * Fracture mediated pain management on as needed opioids per orthopedics Hospitalist consult * Preop risk evaluation-high risk overall based on RCRI [place] [employer] risk stratification. Surgery and anesthesia specific risks will be discussed by individual care provider. There are no modifiable risk factors at this time except for elevated INR which will increase risk of bleeding. Currently being reversed with FFP and vitamin K. * Supratherapeutic INR-status post 10 mg vitamin K/2 units FFP. INR 1.4. Will initiate heparin drip for prompt anticoagulation post surgery * Atrial fibrillation currently in sinus on amiodarone * History of mechanical mitral valve- High risk thrombosis, will initiate heparin drip post surgery * Anxiety disorder on bupropion * History of prior CVA on aspirin/statin * Hypothyroidism on thyroxine * Full code * Prophylaxis-held at this time Plan * Review postop * initiate heparin drip post surgery /Coumadin * Pre-existing medical condition management as above * Continue pain management * Aggressive physical therapy * Discharge planning per case management Current Visit: Yes Medical - PN: Qual - VTE Deep Vein Thrombosis/Pulmonary Embolism Present on Admission: No
[2019-08-01] MEDS: ASPIRIN 81 MG TAB.CHEW PO SCH ×2 (11:00→21:01)
[2019-08-01] MEDS: DOCUSATE SODIUM 100 MG CAPSULE PO SCH ×2 (11:00→21:01)
[2019-08-01] MEDS: ATORVASTATIN 20 MG TABLET PO SCH (11:00)
[2019-08-01] MEDS: buPROPion 150 MG TAB.XL.24H PO SCH (11:01)
[2019-08-01] MEDS: MULTIVIT,THER IRON,CA,FA & MIN 1 TABLET PO SCH (11:01)
[2019-08-01] MEDS: HYDROmorphone 0.5 MG/0.5 ML SYRINGE IV PRN (11:08)
[2019-08-01] MEDS ORDERED: KETAMINE 100 MG/ML ML IV ONE (15:58)
[2019-08-01] MEDS ORDERED: SUGAMMADEX SODIUM 200 MG/2 ML VIAL IV ONE (15:58)
[2019-08-01] MEDS ORDERED: ROPIVACAINE HCL/PF 30 ML VIAL IJ ONE (15:58)
[2019-08-01] MEDS ORDERED: PROPOFOL 200 MG/20 ML VIAL IV ONE (15:58)
[2019-08-01] MEDS ORDERED: LIDOCAINE HCL/PF 100 MG/5 ML SYRINGE IV ONE (15:58)
[2019-08-01] MEDS ORDERED: MIDAZOLAM 2 MG/2 ML VIAL IV ONE (15:58)
[2019-08-01] MEDS ORDERED: HYDROmorphone 1 MG/ML SYRINGE IV ONE (15:58)
[2019-08-01] MEDS ORDERED: DEXAMETHASONE 10 MG/ML VIAL IV ONE (15:58)
[2019-08-01] MEDS ORDERED: GLYCOPYRROLATE 0.2 MG/ML VIAL IV ONE (15:58)
[2019-08-01] MEDS ORDERED: ROCURONIUM 10 MG/ML ML IV ONE (15:58)
[2019-08-01] MEDS ORDERED: TRANEXAMIC ACID 1,000 MG/10 ML VIAL IV ONE (15:58)
[2019-08-01] MEDS ORDERED: ONDANSETRON 4 MG/2 ML VIAL IV ONE (15:58)
[2019-08-01] MEDS ORDERED: MEPERIDINE 25 MG/ML SYRINGE IV PRN (17:49)
[2019-08-01] MEDS ORDERED: ONDANSETRON 4 MG/2 ML VIAL IV PRN (17:49)
[2019-08-01] MEDS ORDERED: METHOCARBAMOL 1,000 MG/10 ML VIAL IV PRN (17:49)
[2019-08-01] MEDS ORDERED: fentaNYL 100 MCG/2 ML VIAL IV PRN (17:49)
[2019-08-01] MEDS ORDERED: LACTATED RINGERS 1,000 ML IV SCH (18:00)
[2019-08-01] MEDS ORDERED: VANCOMYCIN 1 GM VIAL TOPICAL SCH (18:15)
--- NOTE | 2019-08-01 18:56 | XRay Report ---
CLINICAL INFORMATION: Distal Femur Fracture. COMPARISON: None. FINDINGS: The transverse fracture of the distal femoral metaphysis, just above the femoral prosthetic component, has been reduced to anatomic alignment and now transfixed by lateral plate and multiple screws. The prostheses is anatomically aligned IMPRESSION: ORIF distal femoral fracture anatomic alignment Interpreted and Authenticated by: Sylvester Huff 08/01/19
[2019-08-01] MEDS ORDERED: FUROSEMIDE 20 MG TABLET PO PRN (19:41)
--- NOTE | 2019-08-01 19:41 | Brief Operative Note ---
Date of procedure: 08/01/19 Pre-op diagnosis: R supracondylar femur Post-op diagnosis: same Procedure: orif Grafts/Implants: Yes (robe) Anesthesia: GETA Complications: none Surgeon: Mu Glover [employer] Sales Consultant: Tyron Cox Estimated blood loss (cc): 150 Condition: stable Disposition: PACU
[2019-08-01] MEDS ORDERED: SPIRONOLACTONE 25 MG TABLET PO PRN (19:45)
[2019-08-01 20:50] LABS: Hematocrit 32.1 % (34.1-44.9); Hemoglobin 10.6 g/dL (11.2-15.7)
[2019-08-01] MEDS: VITAMIN D3 1,000 UNIT TABLET PO SCH (21:01)
[2019-08-01] MEDS: SENNOSIDES/DOCUSATE SODIUM 1 TAB TABLET PO SCH (21:01)
[2019-08-01] MEDS: AMIODARONE HCL 200 MG TABLET PO SCH (21:02)
[2019-08-01] MEDS: ceFAZolin 1 GM VIAL IV SCH (21:40)
[2019-08-01] MEDS: 0.9 % SODIUM CHLORIDE 1,000 ML IV SCH (22:46)
[2019-08-02] MEDS: ceFAZolin 1 GM VIAL IV SCH ×2 (05:08→12:48)
[2019-08-02] MEDS: 0.9 % SODIUM CHLORIDE 10 ML SYRINGE IV SCH ×3 (05:09→20:14)
[2019-08-02 06:11] LABS: Hematocrit 26.9 % (34.1-44.9); Mean Cell Volume 100.4 fL (80.0-100.0); Mean Corpuscular HGB Conc 33.5 g/dL (31.0-36.0); Mean Platelet Volume 10.9 fL (7.4-10.4); Platelet Count 107 K/mcL (140-440); RBC 2.68 M/mcL (3.59-5.38); Red Cell Distribution Width 12.6 % (11.5-14.5)
[2019-08-02 06:24] LABS: INR 1.4 (0.9-1.1); Prothrombin Time 17.2 sec (11.9-14.5)
[2019-08-02 06:31] LABS: ALT/SGPT 17 U/l (0-40); AST/SGOT 34 U/l (0-37); Albumin 2.6 gm/dL (3.2-5.2); Alkaline Phosphatase 78 U/L (39-117); Bilirubin,Direct 0.3 mg/dL (0.0-0.3); Bilirubin,Total 1.1 mg/dL (0.0-1.0); Blood Urea Nitrogen 13 mg/dl (8-23); Calcium 7.8 mg/dl (8.6-10.4); Carbon Dioxide 23 mmol/L (22-30); Chloride 101 mmol/L (96-108); Globulin 2.5 gm/dL (2.2-3.7); Glomerular Filtration Rate 92; Glucose 131 mg/dL (70-105); Lactate Dehydrogenase 329 U/L (94-250); Phosphorous 3.7 mg/dL (2.7-4.5); Triglycerides 36 mg/dl (<150); Uric Acid 4.2 mg/dL (2.5-8.0)
--- NOTE | 2019-08-02 07:29 | Operative Note ---
DATE OF OPERATION: 08/01/2019 PREOPERATIVE DIAGNOSIS: Right complex periprosthetic femur fracture, a supracondylar femur above a total knee prosthesis. POSTOPERATIVE DIAGNOSIS: Right complex periprosthetic femur fracture, a supracondylar femur above a total knee prosthesis. OPERATION PROPOSED: Open reduction and internal fixation of right supracondylar femur fracture with bone grafting. OPERATION PERFORMED: Open reduction and internal fixation of right supracondylar femur fracture with bone grafting. OPERATING SURGEON: Adam Glover M.D. [employer]: Tyron Cox PA-C. This provider's expertise and technical skill were required throughout the case. The PA assisted with preoperative coordination, intraoperative retraction, wound closure, dressing and splint application, as well as postoperative documentation and care coordination. INDICATIONS: This is a 69-year-old lady who has had a periprosthetic femur fracture that is somewhat of an unusual fracture position where it is dislocated posteriorly and hung on the prosthesis. We have elected to proceed with an open reduction and internal fixation. OPERATION IN DETAIL: Informed consent was obtained. The patient was taken to the operating room and provided with appropriate anesthetic and prophylactic antibiotics. She was carefully positioned. I considered an intramedullary retrograde rodding, so I made an attempt to reduce the fracture, closed. I passed a wire across the distal femur to see if this would allow me to traction the distal fragment and effect a reduction. I also made a stab wound in the suprapatellar pouch and tried to unhinge this with a Mora. When this was not really manageable, I elected to perform an open reduction and internal fixation and this would allow further reduction. A lateral incision was made. I dissected through the iliotibial band. I exposed the lateral aspect of the femur. A best possible reduction was attempted and I was not happy with the reduction. Ultimately, I made a 4 cm incision in the suprapatellar pouch over the fracture and opened the fracture site. On further evaluation, there was comminution and bone loss anteriorly and there was a fairly large space anteriorly and within the metaphyseal intramedullary space that was fairly empty. We obtained the best possible reduction. I placed a distal cancellous screw which brought the plate and the distal condyle in that position. I placed a proximal screw that allowed the plate to be sucked against the distal femur. I placed distal locking screws and proximal locking screws. Again, I irrigated thoroughly and packed this area of bony void with bone graft. I closed with an 0 Vicryl in interrupted fashion, 2-0 Vicryl inverted deep dermal, and reji. The procedure was tolerated well. No complications. Estimated blood loss was 150 mL. GDD:osman Job ID: [id number] Doc ID: [id number] Mu Glover MD
[2019-08-02 07:44] LABS: Lymphocytes % 15 % (15-49); Macrocytosis 1+ (NONE SEEN); Monocytes % (Manual) 1 % (1-12); Platelet Estimate DECREASED (NORMAL); RBC Morphology ABNORM (NORMAL); Segmented Neutrophils % 84 % (38-78)
[2019-08-02] MEDS: HYDROmorphone 0.5 MG/0.5 ML SYRINGE IV PRN (07:52)
[2019-08-02] MEDS: LEVOTHYROXINE 100 MCG TABLET PO SCH (07:52)
--- NOTE | 2019-08-02 07:52 | Orthopedic Progress Note ---
Subjective Patient information: Note initiated : 08/02/19 at 7:49 am Service Date, if different from initiated Date: [] Patient: Crystal Conley 69 y/o F admitted on 07/31/19 for fell. Chief Complaint: [S/p ORIF of right distal femur fx] Patient is doing well sitting up in bed. She denies any new onset chest pain, SOA, or lower extremity calf tenderness. Principal diagnosis: Right displaced distal femur periprosthetic fx Objective Vital signs: Vital Signs Temp Pulse Resp BP Pulse Ox 08/02/19 03:33 98.7 F 61 12 99/47 98 08/01/19 22:48 98.8 F 66 12 101/50 93 08/01/19 21:48 71 102/53 91 08/01/19 21:18 71 108/55 89 L 08/01/19 20:48 75 123/57 90 08/01/19 20:34 78 135/55 98 08/01/19 20:18 77 130/60 99 08/01/19 20:03 77 136/59 99 08/01/19 19:47 98.4 F 76 12 132/62 92 08/01/19 19:40 98.6 F 74 20 119/48 97 08/01/19 19:35 98.7 F 74 18 119/48 97 08/01/19 19:20 74 14 115/48 100 08/01/19 19:15 78 13 122/42 95 08/01/19 19:10 81 17 123/49 100 08/01/19 19:05 97.6 F 79 19 123/49 98 08/01/19 08:00 98.8 F 64 16 102/42 92 Intake and Output 08/01/19 08/02/19 08/02/19 21:59 05:59 13:59 Intake Total 2800 100 Output Total 450 400 Balance 2350 -300 Intake: IV 1000 Sodium Chloride 0.9% 1,000 ml @ 1000 50 mls/hr IV .Q20H [facility] Rx#: [id number] Oral 100 IV - Manual Only 1800 Output: Urine Catheter Amount 300 400 Estimated Blood Loss 150 Other: Urine Appearance Clear Clear Urine Color Bright Yellow Light [place] Uretheral (Gar[place]) Bright Yellow Urine Odor Normal Strong Weight 174 lb Intake & Output: Intake & Output 08/01/19 08/02/19 08/02/19 21:59 05:59 13:59 Intake Total 2800 100 Output Total 450 400 Balance 2350 -300 Weight 174 lb Intake: IV 1000 Sodium Chloride 0.9% 1,000 ml @ 1000 50 mls/hr IV .Q20H [facility] Rx#: [id number] Oral 100 IV - Manual Only 1800 Output: Urine Catheter Amount 300 400 Estimated Blood Loss 150 Other: Urine Appearance Clear Clear Urine Color Bright Yellow Light [place] Uretheral ([place]) Bright Yellow Urine Odor Normal Strong Incision: Yes healing, Yes clean and dry Incision clean and dry: Yes Dressing: Yes clean, Yes dry, Yes intact Weight bearing status: non (RLE) Neurological exam IM: Yes alert, Yes oriented X3, Yes motor sensory intact, Yes neurovascular intact Extremities exam IM: Yes calf tenderness (Negative bilaterally), Yes Ariel's sign (Negative bilaterally), Yes Foot pink and warm, Yes neurovascular intact - Labs CBC & BMP: 08/02/19 05:10 08/02/19 05:10 Labs: Orthopedic Labs 08/02/19 08/01/19 07/31/19 05:10 05:35 17:14 PT 17.2 H 17.9 H 30.0 H INR 1.4 H 1.4 H 2.8 H 08/02/19 08/01/19 08/01/19 05:10 19:32 05:35 Hgb 9.0 L 10.6 L 9.6 L Hct 26.9 L 32.1 L 28.7 L 07/31/19 17:14 Hgb 11.9 Hct 35.5 Assessment and Plan (1) Femur fracture, right NWB on RLE. Start PT. Likely discharge to SNF for discharge. Status: Acute
[2019-08-02] MEDS ORDERED: HEPARIN/D5W 25,000 UNIT in PREMIX 1 BAG IV SCH (08:00)
[2019-08-02] MEDS: VITAMIN B COMPLEX 1 CAPSULE PO SCH (09:06)
[2019-08-02] MEDS: DOCUSATE SODIUM 100 MG CAPSULE PO SCH ×2 (09:06→20:13)
[2019-08-02] MEDS: ASPIRIN 81 MG TAB.CHEW PO SCH ×2 (09:06→20:13)
[2019-08-02] MEDS: ATORVASTATIN 20 MG TABLET PO SCH (09:06)
[2019-08-02] MEDS: buPROPion 150 MG TAB.XL.24H PO SCH (09:06)
[2019-08-02] MEDS: VITAMIN D3 1,000 UNIT TABLET PO SCH ×2 (09:07→20:13)
[2019-08-02] MEDS: MULTIVIT,THER IRON,CA,FA & MIN 1 TABLET PO SCH (09:07)
--- NOTE | 2019-08-02 09:07 | Internal Med Progress Note ---
Medical - PN: Subj Patient information: Note initiated : 08/02/19 at 9:04 am Service Date, if different from initiated Date: [] Patient: Crystal Conley a 69 y/o F admitted on 07/31/19 for fell. Chief Complaint: [] Interval history: Ms. Conley is a 69 year old F with a history of mechanical mitral valve on anticoagulation/atrial fibrillation on amiodarone who was in her usual state of health returned from [facility] this afternoon and slipped at home injuring her right knee. Following the fall she was unable to move or walk due to significant pain. She was brought into the ER for evaluation. Initial work-up was consistent with right femoral supracondylar fracture. Orthopedic was consulted. Of note she recently underwent right knee surgery by Dr. Arnold. It was decided patient will undergo operative intervention later in the evening. She is currently on Coumadin for history of mechanical valve with INR 2.8. She received 2 units of FFP/10 mg vitamin K. However INR remained elevated despite above measures and subsequently hospitalist service was consulted for inpatient admission while patient undergo planned surgery in the next 24 hours once INR less than 1.5. I discussed the case with Dr. Glover orthopedics. At time evaluation patient is alert and oriented. She was able to answer most questions. She denies seizure-like episode or loss of consciousness. She denies dizziness palpitation. She denies incontinence. She denied recent fever chills. She follows up with primary care physician regularly. She underwent mechanical valve placement in 2012. 07/31-INR 1.5. Due for surgery this morning. We will start heparin drip post surgery as a bridge until INR therapeutic. Will initiate Coumadin. Stable labs with hemoglobin 9.6. Pain well controlled. Will review postop 08/01-patient postop day 1. Doing well. Ongoing physical therapy. Case discussed with Dr. Glover about high risk thrombosis in the setting of mechanical mitral valve. Orthopedics expressed concerned about previous hospitalization during which she was started on postoperative anticoagulation a nd subsequent lead to severe bleed and had to be transferred to tertiary center. On that per text orthopedics feels it to be safe to initiate heparin drip 24 hours out of surgery. I discussed my concern and plan with Yong. She understands and agrees with the plan - Constitutional Vitals: Vital Signs Temp Pulse Resp BP Pulse Ox 97.9 F 58 L 12 96/46 97 08/02/19 08:00 08/02/19 08:00 08/02/19 08:00 08/02/19 08:00 08/02/19 08:00 Period Temp Pulse Resp BP Sys/Mai Pulse Ox Last 24 Hr 97.6 F-98.8 F 58-81 12-20 96-136/42-62 89-100 Intake and Output 08/01/19 08/02/19 08/02/19 21:59 05:59 13:59 Intake Total 2800 100 Output Total 450 400 Balance 2350 -300 Weight 174 lb Intake & Output: Intake & Output 08/01/19 08/02/19 08/02/19 21:59 05:59 13:59 Intake Total 2800 100 Output Total 450 400 Balance 2350 -300 Weight 174 lb Intake: IV 1000 Sodium Chloride 0.9% 1,000 ml @ 1000 50 mls/hr IV .Q20H [facility] Rx#: [id number] Oral 100 IV - Manual Only 1800 Output: Urine Catheter Amount 300 400 Estimated Blood Loss 150 Other: Urine Appearance Clear Clear Urine Color Bright Yellow Light [place] Uretheral (Garvey) Bright Yellow Urine Odor Normal Strong General appearance: no acute distress Exam: Alert oriented nonlabored breathing No anxiety Surgical dressing right knee Medical - PN: Obj Da - Labs CBC & Chem 7: 08/02/19 05:10 08/02/19 05:10 Labs: Abnormal Lab Results 08/02/19 08/02/19 08/02/19 05:10 05:10 05:10 WBC RBC 2.68 L Hgb 9.0 L Hct 26.9 L MCV 100.4 H Plt Count 107 L MPV 10.9 H Seg Neutrophils % 84 H Lymphocytes % RBC Morphology Abnorm A Anisocytosis Macrocytosis 1+ A PT 17.2 H INR 1.4 H Glucose 131 H Calcium 7.8 L Magnesium 1.5 L Total Bilirubin 1.1 H Lactate Dehydrogenase 329 H Total Protein 5.1 L Albumin 2.6 L 08/01/19 08/01/19 08/01/19 19:32 05:35 05:35 WBC RBC Hgb 10.6 L Hct 32.1 L MCV Plt Count MPV Seg Neutrophils % Lymphocytes % RBC Morphology Anisocytosis Macrocytosis PT 17.9 H INR 1.4 H Glucose Calcium 8.1 L Magnesium Total Bilirubin 1.1 H Lactate Dehydrogenase 331 H Total Protein 5.4 L Albumin 2.8 L 08/01/19 07/31/19 07/31/19 05:35 17:14 17:14 WBC 4.3 L RBC 2.83 L Hgb 9.6 L Hct 28.7 L MCV 101.4 H Plt Count 108 L MPV Seg Neutrophils % 86 H Lymphocytes % 7 L RBC Morphology Abnorm A Anisocytosis Few A Macrocytosis 1+ A PT 30.0 H INR 2.8 H Glucose 106 H Calcium Magnesium Total Bilirubin Lactate Dehydrogenase Total Protein Albumin 07/31/19 17:14 WBC RBC 3.52 L Hgb Hct MCV 100.9 H Plt Count 137 L MPV 10.7 H Seg Neutrophils % 86 H Lymphocytes % 10 L RBC Morphology Abnorm A Anisocytosis 1+ A Macrocytosis 1+ A PT INR Glucose Calcium Magnesium Total Bilirubin Lactate Dehydrogenase Total Protein Albumin Meds: Medications Acetaminophen (Tylenol) 650 mg PO Q4-6HP PRN; Protocol PRN Reason: Per Pain Protocol/Fever > 101 Hydrocodone Bitart/Acetaminophen ([place] 5/325mg) 1 tab PO Q6HP PRN; Protocol PRN Reason: Severe Pain Last Admin: 07/31/19 21:25 Dose: 1 tab Documented by: Amiodarone HCl (Cordarone) 100 mg PO HS [facility] Last Admin: 08/01/19 21:02 Dose: 100 mg Documented by: Aspirin (Aspirin) 81 mg PO BID [facility] Last Admin: 08/01/19 21:01 Dose: 81 mg Documented by: Atorvastatin Calcium (Lipitor) 40 mg PO DAILY [facility] Last Admin: 08/01/19 11:00 Dose: Not Given Documented by: Bisacodyl (Dulcolax) 10 mg RI Q2-3DAYS PRN PRN Reason: Constipation Bupropion HCl (Wellbutrin Xl) 150 mg PO DAILY [facility] Last Admin: 08/01/19 11:01 Dose: Not Given Documented by: Cefazolin Sodium (Ancef) 1 gm IV Q8H [facility]; Protocol Stop: 08/02/19 13:01 Last Admin: 08/02/19 05:08 Dose: 1 gm Documented by: Docusate Sodium (Colace) 100 mg PO BID [facility] Last Admin: 08/01/19 21:01 Dose: 100 mg Documented by: Furosemide (Lasix) 20 mg PO PRN PRN PRN Reason: edema Guaifenesin/Codeine Phosphate (Robitussin Ac) 10 ml PO Q4HP PRN PRN Reason: Cough Hydromorphone HCl (Dilaudid) 0 mg IV Q4HP PRN; Protocol PRN Reason: Per Pain Protocol Last Admin: 08/02/19 07:52 Dose: 0.5 mg Documented by: Sodium Chloride (Sodium Chloride 0.9%) 1,000 mls @ 50 mls/hr IV .Q20H [facility] Stop: 08/03/19 08:42 Last Admin: 08/01/19 22:46 Dose: 50 mls/hr Documented by: Acetaminophen (Ofirmev) 650 mg in 65 mls @ 130 mls/hr IV Q6HP PRN; Protocol PRN Reason: Per Pain Protocol/Fever > 101 Iron Carb/Multivit/[place]/Folic Acid (Multivitamin W/Minerals) 1 tab PO DAILY [facility] Last Admin: 08/01/19 11:01 Dose: Not Given Documented by: Levothyroxine Sodium (Synthroid) 100 mcg PO QAMAC [facility] Last Admin: 08/02/19 07:52 Dose: 100 mcg Documented by: Melatonin (Melatonin 3mg Tablet) 3 mg PO HSP PRN PRN Reason: Insomnia Ondansetron HCl (Zofran Odt) 4 mg SL Q4-6HP PRN; Protocol PRN Reason: Nausea And Vomiting Ondansetron HCl (Zofran) 4 mg IV Q4-6HP PRN; Protocol PRN Reason: Nausea And Vomiting Ubidecarenone [Coq10 (] 50 Mg) 1 dose PO DAILY [facility] Polyethylene Glycol (Miralax) 17 gm PO DAILYP PRN PRN Reason: Constipation Scopolamine (Transderm-Scop) 1 patch TOPICAL PREOP PRN PRN Reason: Nausea And Vomiting Senna/Docusate Sodium (Senna Plus Tablet) 1 tab PO HS [facility] Last Admin: 08/01/19 21:01 Dose: 1 tab Documented by: Sodium Chloride (Saline Flush) 10 ml IV Q8 [facility] Last Admin: 08/02/19 05:09 Dose: 10 ml Documented by: Spironolactone (Aldactone) 25 mg PO PRN [facility] Vitamin B Complex (Vitamin B Complex) 1 cap PO DAILY [facility] Vitamin D (Vitamin D3) 2,000 unit PO BID [facility] Last Admin: 08/01/19 21:01 Dose: 2,000 unit Documented by: Medical - PN: A/P - Time Spent With Patient Total time spent is greater than 50% in coordination of care (as documented) at patient's floor/unit and/or counseling patient: 25 - 35 minutes (1) Femur fracture, right Status: Acute Assessment and plan: * Right distal supracondylar femur fracture-postop day 1. Managed by orthopedics. * Fracture mediated pain management on as needed opioids per orthopedics Hospitalist consult * Atrial fibrillation currently in sinus on amiodarone * History of mechanical mitral valve- High risk thrombosis, will initiate heparin drip 24-hour post surgery as per orthopedic commendations starting tonight around 9 PM. Patient was made aware of the plan * Anxiety disorder stable on bupropion * History of prior CVA continue aspirin/statin * Hypothyroidism on thyroxine * Full code * Prophylaxis-on hold at this time Plan * Restart anticoagulation with heparin drip later this evening * Pre-existing medical condition management as above * Continue pain management * Postoperative care/physical therapy * Discharge planning per case management Current Visit: Yes Medical - PN: Qual - VTE Deep Vein Thrombosis/Pulmonary Embolism Present on Admission: No
[2019-08-02] MEDS: Ubidecarenone [Coq10] 50 MG PO SCH (09:43)
--- NOTE | 2019-08-02 10:07 | XRay Report ---
CLINICAL INFORMATION: S/p ORIF of right distal femur fx COMPARISON: None. FINDINGS: Transverse fracture of the distal femoral metaphysis is been reduced to anatomic alignment is transfixed by lateral plate and screws. Total knee prosthesis remains anatomically aligned without loosening or infection. Soft tissue swelling and gas as expected. IMPRESSION: ORIF transverse fracture distal femoral metaphysis anatomic alignment. Interpreted and Authenticated by: Sylvester Huff 08/02/19
[2019-08-02] MEDS: HYDROcodone/APAP 5/325MG TABLET PO PRN ×2 (12:04→18:19)
--- NOTE | 2019-08-02 13:11 | Internal Med Progress Note ---
Medical - PN: Subj Patient information: Note initiated : 08/02/19 at 1:05 pm Service Date, if different from initiated Date: [] Patient: Crystal Conley a 69 y/o F admitted on 07/31/19 for fell. Chief Complaint: [] Interval history: Ms. Conley is a 69 year old F with a history of mechanical mitral valve on anticoagulation/atrial fibrillation on amiodarone who was in her usual state of health returned from [facility] this afternoon and slipped at home injuring her right knee. Following the fall she was unable to move or walk due to significant pain. She was brought into the ER for evaluation. Initial work-up was consistent with right femoral supracondylar fracture. Orthopedic was consulted. Of note she recently underwent right knee surgery by Dr. Arnold. It was decided patient will undergo operative intervention later in the evening. She is currently on Coumadin for history of mechanical valve with INR 2.8. She received 2 units of FFP/10 mg vitamin K. However INR remained elevated despite above measures and subsequently hospitalist service was consulted for inpatient admission while patient undergo planned surgery in the next 24 hours once INR less than 1.5. I discussed the case with Dr. Glover orthopedics. At time evaluation patient is alert and oriented. She was able to answer most questions. She denies seizure-like episode or loss of consciousness. She denies dizziness palpitation. She denies incontinence. She denied recent fever chills. She follows up with primary care physician regularly. She underwent mechanical valve placement in 2012. 07/31-INR 1.5. Due for surgery this morning. We will start heparin drip post surgery as a bridge until INR therapeutic. Will initiate Coumadin. Stable labs with hemoglobin 9.6. Pain well controlled. Will review postop 08/01-patient postop day 1. Doing well. Ongoing physical therapy. Case discussed with Dr. Glover about high risk thrombosis in the setting of mechanical mitral valve. Orthopedics expressed concerned about previous hospitalization during which she was started on postoperative anticoagulation an d subsequent lead to severe bleed and had to be transferred to tertiary center. On that per text orthopedics feels it to be safe to initiate heparin drip 24 hours out of surgery. I discussed my concern and plan with Yong. She understands and agrees with the plan 08/02 - Constitutional Vitals: Vital Signs Temp Pulse Resp BP Pulse Ox 97.9 F 58 L 12 96/46 97 08/02/19 08:00 08/02/19 08:00 08/02/19 08:00 08/02/19 08:00 08/02/19 08:00 Period Temp Pulse Resp BP Sys/Mai Pulse Ox Last 24 Hr 97.6 F-98.8 F 58-81 12-20 96-136/42-62 89-100 Intake and Output 08/01/19 08/02/19 08/02/19 21:59 05:59 13:59 Intake Total 2800 100 240 Output Total 450 400 Balance 2350 -300 240 Weight 78.925 kg Intake & Output: Intake & Output 08/01/19 08/02/19 08/02/19 21:59 05:59 13:59 Intake Total 2800 100 240 Output Total 450 400 Balance 2350 -300 240 Weight 78.925 kg Intake: IV 1000 Sodium Chloride 0.9% 1,000 ml @ 1000 50 mls/hr IV .Q20H [facility] Rx#: [id number] Oral 100 240 IV - Manual Only 1800 Output: Urine Catheter Amount 300 400 Estimated Blood Loss 150 Other: Meal Breakfast Percent of Meal Consumed 25% Feeding Ability Independent Urine Appearance Clear Clear Uretheral (Garvey) Clear Urine Color Bright Yellow Light [place] Uretheral ([place]) Bright Yellow Light [place] Urine Odor Normal Strong Exam: General: Alert, Awake, No acute Distress Eyes/N/T: EOMI, Head/Neck: neck supple, CV: RRR, No murmurs, Pulm: Clear b/l, no wheezing/rhonchi/rales Abd: soft, nontender, +BS x4 Ext: no clubbing/cyanosis/edema, surgical dressing right knee Neuro: Alert, awake, moves all extremities, Skin: warm/dry Medical - PN: Obj Da - Labs CBC & Chem 7: 08/02/19 05:10 08/02/19 05:10 Labs: Abnormal Lab Results 08/02/19 08/02/19 08/02/19 05:10 05:10 05:10 WBC RBC 2.68 L Hgb 9.0 L Hct 26.9 L MCV 100.4 H Plt Count 107 L MPV 10.9 H Seg Neutrophils % 84 H Lymphocytes % RBC Morphology Abnorm A Anisocytosis Macrocytosis 1+ A PT 17.2 H INR 1.4 H Glucose 131 H Calcium 7.8 L Magnesium 1.5 L Total Bilirubin 1.1 H Lactate Dehydrogenase 329 H Total Protein 5.1 L Albumin 2.6 L 08/01/19 08/01/19 08/01/19 19:32 05:35 05:35 WBC RBC Hgb 10.6 L Hct 32.1 L MCV Plt Count MPV Seg Neutrophils % Lymphocytes % RBC Morphology Anisocytosis Macrocytosis PT 17.9 H INR 1.4 H Glucose Calcium 8.1 L Magnesium Total Bilirubin 1.1 H Lactate Dehydrogenase 331 H Total Protein 5.4 L Albumin 2.8 L 08/01/19 07/31/19 07/31/19 05:35 17:14 17:14 WBC 4.3 L RBC 2.83 L Hgb 9.6 L Hct 28.7 L MCV 101.4 H Plt Count 108 L MPV Seg Neutrophils % 86 H Lymphocytes % 7 L RBC Morphology Abnorm A Anisocytosis Few A Macrocytosis 1+ A PT 30.0 H INR 2.8 H Glucose 106 H Calcium Magnesium Total Bilirubin Lactate Dehydrogenase Total Protein Albumin 07/31/19 17:14 WBC RBC 3.52 L Hgb Hct MCV 100.9 H Plt Count 137 L MPV 10.7 H Seg Neutrophils % 86 H Lymphocytes % 10 L RBC Morphology Abnorm A Anisocytosis 1+ A Macrocytosis 1+ A PT INR Glucose Calcium Magnesium Total Bilirubin Lactate Dehydrogenase Total Protein Albumin Meds: Medications Acetaminophen (Tylenol) 650 mg PO Q4-6HP PRN; Protocol PRN Reason: Per Pain Protocol/Fever > 101 Hydrocodone Bitart/Acetaminophen ([place] 5/325mg) 1 tab PO Q6HP PRN; Protocol PRN Reason: Severe Pain Last Admin: 08/02/19 12:04 Dose: 1 tab Documented by: Amiodarone HCl (Cordarone) 100 mg PO HS [facility] Last Admin: 08/01/19 21:02 Dose: 100 mg Documented by: Aspirin (Aspirin) 81 mg PO BID [facility] Last Admin: 08/02/19 09:06 Dose: 81 mg Documented by: Atorvastatin Calcium (Lipitor) 40 mg PO DAILY [facility] Last Admin: 08/02/19 09:06 Dose: 40 mg Documented by: Bisacodyl (Dulcolax) 10 mg OR Q2-3DAYS PRN PRN Reason: Constipation Bupropion HCl (Wellbutrin Xl) 150 mg PO DAILY [facility] Last Admin: 08/02/19 09:06 Dose: 150 mg Documented by: Docusate Sodium (Colace) 100 mg PO BID [facility] Last Admin: 08/02/19 09:06 Dose: 100 mg Documented by: Furosemide (Lasix) 20 mg PO DAILYP PRN PRN Reason: Edema Guaifenesin/Codeine Phosphate (Robitussin Ac) 10 ml PO Q4HP PRN PRN Reason: Cough Hydromorphone HCl (Dilaudid) 0 mg IV Q4HP PRN; Protocol PRN Reason: Per Pain Protocol Last Admin: 08/02/19 07:52 Dose: 0.5 mg Documented by: Sodium Chloride (Sodium Chloride 0.9%) 1,000 mls @ 50 mls/hr IV .Q20H [facility] Stop: 08/03/19 08:42 Last Admin: 08/01/19 22:46 Dose: 50 mls/hr Documented by: Acetaminophen (Ofirmev) 650 mg in 65 mls @ 130 mls/hr IV Q6HP PRN; Protocol PRN Reason: Per Pain Protocol/Fever > 101 Iron Carb/Multivit/[place]/Folic Acid (Multivitamin W/Minerals) 1 tab PO DAILY [facility] Last Admin: 08/02/19 09:07 Dose: 1 tab Documented by: Levothyroxine Sodium (Synthroid) 100 mcg PO QAMAC [facility] Last Admin: 08/02/19 07:52 Dose: 100 mcg Documented by: Melatonin (Melatonin 3mg Tablet) 3 mg PO HSP PRN PRN Reason: Insomnia Ondansetron HCl (Zofran Odt) 4 mg SL Q4-6HP PRN; Protocol PRN Reason: Nausea And Vomiting Ondansetron HCl (Zofran) 4 mg IV Q4-6HP PRN; Protocol PRN Reason: Nausea And Vomiting Ubidecarenone [Coq10 (] 50 Mg) 1 dose PO DAILY [facility] Last Admin: 08/02/19 09:43 Dose: Not Given Documented by: Polyethylene Glycol (Miralax) 17 gm PO DAILYP PRN PRN Reason: Constipation Scopolamine (Transderm-Scop) 1 patch TOPICAL PREOP PRN PRN Reason: Nausea And Vomiting Senna/Docusate Sodium (Senna Plus Tablet) 1 tab PO HS [facility] Last Admin: 08/01/19 21:01 Dose: 1 tab Documented by: Sodium Chloride (Saline Flush) 10 ml IV Q8 [facility] Last Admin: 08/02/19 12:48 Dose: 10 ml Documented by: Spironolactone (Aldactone) 25 mg PO DAILYP PRN PRN Reason: Edema Vitamin B Complex (Vitamin B Complex) 1 cap PO DAILY [facility] Last Admin: 08/02/19 09:06 Dose: 1 cap Documented by: Vitamin D (Vitamin D3) 2,000 unit PO BID [facility] Last Admin: 08/02/19 09:07 Dose: 2,000 unit Documented by: Medical - PN: A/P - Time Spent With Patient Total time spent is greater than 50% in coordination of care (as documented) at patient's floor/unit and/or counseling patient: - Narrative A/P Narrative: A: *Right distal supracondylar femur fracture: s/p ORIF (07/31) *Atrial fibrillation: *Mechanical mitral valve: *Hypothyroidism: *Anxiety: *h/o CVA: P: -Fracture management pain control per Dr. Glover, orthopedics -Restart anticoagulation, heparin drip tonight with Coumadin bridging -Continue home amiodarone -cont aspirin/statin -pt/ot -CM for placement -DVT prophylaxis: heparin- warfarin bridge per pharmacy Medical - PN: Qual - VTE Deep Vein Thrombosis/Pulmonary Embolism Present on Admission: No
[2019-08-02] MEDS: 0.9 % SODIUM CHLORIDE 1,000 ML IV SCH ×2 (13:51→18:50)
[2019-08-02] MEDS: METHOCARBAMOL 750 MG TABLET PO PRN (14:59)
[2019-08-02] MEDS ORDERED: WARFARIN 2.5 MG TABLET PO ONE (15:00)
[2019-08-02 19:45] LABS: Basophils # (Auto) 0.01 K/mcL (0.00-0.30); Basophils % (Auto) 0.2 % (0.0-2.0); Eosinophils # (Auto) 0 K/mcL (0.00-0.70); Eosinophils % (Auto) 0 % (0.0-7.0); Granulocytes % (Auto) 78.2 % (38.0-78.0); Hematocrit 25.8 % (34.1-44.9); Hemoglobin 8.7 g/dL (11.2-15.7); Lymphocytes # (Auto) 0.49 K/mcL (1.50-4.80); Mean Cell Volume 100.4 fL (80.0-100.0); Mean Corpuscular HGB Conc 33.7 g/dL (31.0-36.0); Mean Platelet Volume 11.1 fL (7.4-10.4); Monocytes # (Auto) 0.83 K/mcL (0.10-0.90); Monocytes % (Auto) 13.6 % (1.0-12.0); Platelet Count 135 K/mcL (140-440); RBC 2.57 M/mcL (3.59-5.38); Red Cell Distribution Width 12.8 % (11.5-14.5); WBC 6.1 K/mcL (4.50-11.00)
[2019-08-02 19:58] LABS: INR 1.3 (0.9-1.1)
[2019-08-02] MEDS: HEPARIN/D5W 25,000 UNIT in PREMIX 1 BAG IV SCH (20:01)
[2019-08-02] MEDS: SENNOSIDES/DOCUSATE SODIUM 1 TAB TABLET PO SCH (20:13)
[2019-08-02] MEDS: AMIODARONE HCL 200 MG TABLET PO SCH (20:13)
[2019-08-03] MEDS: HYDROcodone/APAP 5/325MG TABLET PO PRN ×4 (02:10→21:00)
[2019-08-03] MEDS: METHOCARBAMOL 750 MG TABLET PO PRN ×3 (04:10→23:00)
[2019-08-03] MEDS: 0.9 % SODIUM CHLORIDE 10 ML SYRINGE IV SCH ×3 (04:12→20:19)
[2019-08-03 04:46] LABS: Basophils # (Auto) 0.01 K/mcL (0.00-0.30); Basophils % (Auto) 0.2 % (0.0-2.0); Eosinophils # (Auto) 0.05 K/mcL (0.00-0.70); Eosinophils % (Auto) 1.1 % (0.0-7.0); Hematocrit 24.1 % (34.1-44.9); Lymphocytes # (Auto) 0.62 K/mcL (1.50-4.80); Mean Cell Volume 100.4 fL (80.0-100.0); Mean Corpuscular HGB Conc 33.2 g/dL (31.0-36.0); Mean Platelet Volume 10.9 fL (7.4-10.4); Monocytes # (Auto) 0.74 K/mcL (0.10-0.90); Monocytes % (Auto) 16.7 % (1.0-12.0); Platelet Count 120 K/mcL (140-440); Red Cell Distribution Width 12.9 % (11.5-14.5); WBC 4.4 K/mcL (4.50-11.00)
[2019-08-03 04:58] LABS: INR 1.5 (0.9-1.1); Prothrombin Time 18.3 sec (11.9-14.5)
[2019-08-03 05:10] LABS: ALT/SGPT 13 U/l (0-40); AST/SGOT 27 U/l (0-37); Albumin 2.5 gm/dL (3.2-5.2); Alkaline Phosphatase 70 U/L (39-117); Bilirubin,Direct 0.2 mg/dL (0.0-0.3); Bilirubin,Total 0.7 mg/dL (0.0-1.0); Blood Urea Nitrogen 13 mg/dl (8-23); Calcium 7.5 mg/dl (8.6-10.4); Carbon Dioxide 26 mmol/L (22-30); Chloride 102 mmol/L (96-108); Globulin 2.5 gm/dL (2.2-3.7); Glomerular Filtration Rate 98; Glucose 120 mg/dL (70-105); Lactate Dehydrogenase 271 U/L (94-250); Triglycerides 50 mg/dl (<150)
[2019-08-03 05:19] LABS: Phosphorous 2.6 mg/dL (2.7-4.5)
--- NOTE | 2019-08-03 07:08 | Internal Med Progress Note ---
Medical - PN: Subj Patient information: Note initiated : 08/03/19 at 7:03 am Service Date, if different from initiated Date: [] Patient: Crystal Conley a 69 y/o F admitted on 07/31/19 for fell. Chief Complaint: [] Interval history: Ms. Conley is a 69 year old F with a history of mechanical mitral valve on anticoagulation/atrial fibrillation on amiodarone who was in her usual state of health returned from [facility] this afternoon and slipped at home injuring her right knee. Following the fall she was unable to move or walk due to significant pain. She was brought into the ER for evaluation. Initial work-up was consistent with right femoral supracondylar fracture. Orthopedic was consulted. Of note she recently underwent right knee surgery by Dr. Arnold. It was decided patient will undergo operative intervention later in the evening. She is currently on Coumadin for history of mechanical valve with INR 2.8. She received 2 units of FFP/10 mg vitamin K. However INR remained elevated despite above measures and subsequently hospitalist service was consulted for inpatient admission while patient undergo planned surgery in the next 24 hours once INR less than 1.5. I discussed the case with Dr. Glover orthopedics. At time evaluation patient is alert and oriented. She was able to answer most questions. She denies seizure-like episode or loss of consciousness. She denies dizziness palpitation. She denies incontinence. She denied recent fever chills. She follows up with primary care physician regularly. She underwent mechanical valve placement in 2012. 07/31-INR 1.5. Due for surgery this morning. We will start heparin drip post surgery as a bridge until INR therapeutic. Will initiate Coumadin. Stable labs with hemoglobin 9.6. Pain well controlled. Will review postop 08/01-patient postop day 1. Doing well. Ongoing physical therapy. Case discussed with Dr. Glover about high risk thrombosis in the setting of mechanical mitral valve. Orthopedics expressed concerned about previous hospitalization during which she was started on postoperative anticoagulation an d subsequent lead to severe bleed and had to be transferred to tertiary center. On that per text orthopedics feels it to be safe to initiate heparin drip 24 hours out of surgery. I discussed my concern and plan with Yong. She understands and agrees with the plan 08/02 Supple. No new complaints other than she is asking for Lasix as she is accumulating fluid. No coughing or shortness of breath. No bleeding through the dressing. Review of Systems: denies headache/fever/chills/nausea/vomiting/chest or abdominal pain/cough/dyspnea/diarrhea. Otherwise see above. - Constitutional Vitals: Vital Signs Temp Pulse Resp BP Pulse Ox 98.2 F 54 L 16 105/55 99 08/03/19 04:00 08/03/19 04:00 08/03/19 04:00 08/03/19 04:00 08/03/19 04:00 Period Temp Pulse Resp BP Sys/Mai Pulse Ox Last 24 Hr 97.9 F-98.7 F 54-66 12-18 88-115/41-55 97-100 Intake and Output 08/02/19 08/03/19 08/03/19 21:59 05:59 13:59 Intake Total 1440 564 0 Output Total 450 625 Balance 990 -61 0 Weight 78.925 kg Intake & Output: Intake & Output 08/02/19 08/03/19 08/03/19 21:59 05:59 13:59 Intake Total 1440 564 0 Output Total 450 625 Balance 990 -61 0 Weight 78.925 kg Intake: IV 1000 204 0 Sodium Chloride 0.9% 1,000 ml @ 1000 50 mls/hr IV .Q20H DIETER Rx#: [id number] Heparin/D5w 25,000 Unit In 204 0 Premix 1 Bag @ 14 UNIT/KG/HR 22 .099 mls/hr IV .[id number] DIETER Rx# :[id number] Oral 440 360 Output: Urine Catheter Amount 450 625 Other: Meal Dinner Percent of Meal Consumed 50% Feeding Ability Independent Urine Color Dark Yellow Light [place] Urine Odor Normal Normal Exam: General: Alert, Awake, No acute Distress Eyes/N/T: EOMI, Head/Neck: neck supple, CV: RRR, 2/6 SM Pulm: Clear b/l, no wheezing/rhonchi/rales Abd: soft, nontender, +BS x4 Ext: no clubbing/cyanosis, b/l LE + edema, surgical dressing right knee Neuro: Alert, awake, moves all extremities, Skin: warm/dry Medical - PN: Obj Da - Labs CBC & Chem 7: 08/03/19 04:00 08/03/19 04:00 Labs: Abnormal Lab Results 08/03/19 08/03/19 08/03/19 04:00 04:00 04:00 WBC 4.4 L RBC 2.40 L Hgb 8.0 L Hct 24.1 L MCV 100.4 H Plt Count 120 L MPV 10.9 H Gran % Lymph % (Auto) 14.0 L Bent % (Auto) 16.7 H Lymph # (Auto) 0.62 L Seg Neutrophils % Lymphocytes % RBC Morphology Anisocytosis Macrocytosis PT 18.3 H INR 1.5 H APTT > 200 H* Creatinine Glucose Calcium Phosphorus Magnesium Total Bilirubin Lactate Dehydrogenase Total Protein Albumin 08/03/19 08/02/19 08/02/19 04:00 19:00 19:00 WBC RBC 2.57 L Hgb 8.7 L Hct 25.8 L MCV 100.4 H Plt Count 135 L MPV 11.1 H Gran % 78.2 H Lymph % (Auto) 8.0 L Bent % (Auto) 13.6 H Lymph # (Auto) 0.49 L Seg Neutrophils % Lymphocytes % RBC Morphology Anisocytosis Macrocytosis PT 17.0 H INR 1.3 H APTT Creatinine 0.5 L Glucose 120 H Calcium 7.5 L Phosphorus 2.6 L Magnesium Total Bilirubin Lactate Dehydrogenase 271 H Total Protein 5.0 L Albumin 2.5 L 08/02/19 08/02/19 08/02/19 19:00 05:10 05:10 WBC RBC Hgb Hct MCV Plt Count MPV Gran % Lymph % (Auto) Bent % (Auto) Lymph # (Auto) Seg Neutrophils % Lymphocytes % RBC Morphology Anisocytosis Macrocytosis PT 17.2 H INR 1.4 H APTT 49 H Creatinine Glucose 131 H Calcium 7.8 L Phosphorus Magnesium 1.5 L Total Bilirubin 1.1 H Lactate Dehydrogenase 329 H Total Protein 5.1 L Albumin 2.6 L 08/02/19 08/01/19 08/01/19 05:10 19:32 05:35 WBC RBC 2.68 L Hgb 9.0 L 10.6 L Hct 26.9 L 32.1 L MCV 100.4 H Plt Count 107 L MPV 10.9 H Gran % Lymph % (Auto) Bent % (Auto) Lymph # (Auto) Seg Neutrophils % 84 H Lymphocytes % RBC Morphology Abnorm A Anisocytosis Macrocytosis 1+ A PT INR APTT Creatinine Glucose Calcium 8.1 L Phosphorus Magnesium Total Bilirubin 1.1 H Lactate Dehydrogenase 331 H Total Protein 5.4 L Albumin 2.8 L 08/01/19 08/01/19 07/31/19 05:35 05:35 17:14 WBC 4.3 L RBC 2.83 L Hgb 9.6 L Hct 28.7 L MCV 101.4 H Plt Count 108 L MPV Gran % Lymph % (Auto) Bent % (Auto) Lymph # (Auto) Seg Neutrophils % 86 H Lymphocytes % 7 L RBC Morphology Abnorm A Anisocytosis Few A Macrocytosis 1+ A PT 17.9 H INR 1.4 H APTT Creatinine Glucose 106 H Calcium Phosphorus Magnesium Total Bilirubin Lactate Dehydrogenase Total Protein Albumin 07/31/19 07/31/19 17:14 17:14 WBC RBC 3.52 L Hgb Hct MCV 100.9 H Plt Count 137 L MPV 10.7 H Gran % Lymph % (Auto) Bent % (Auto) Lymph # (Auto) Seg Neutrophils % 86 H Lymphocytes % 10 L RBC Morphology Abnorm A Anisocytosis 1+ A Macrocytosis 1+ A PT 30.0 H INR 2.8 H APTT Creatinine Glucose Calcium Phosphorus Magnesium Total Bilirubin Lactate Dehydrogenase Total Protein Albumin Meds: Medications Acetaminophen (Tylenol) 650 mg PO Q4-6HP PRN; Protocol PRN Reason: Per Pain Protocol/Fever > 101 Hydrocodone Bitart/Acetaminophen ([place] 5/325mg) 1 tab PO Q6HP PRN; Protocol PRN Reason: Severe Pain Last Admin: 08/03/19 02:10 Dose: 1 tab Documented by: Amiodarone HCl (Cordarone) 100 mg PO HS [facility] Last Admin: 08/02/19 20:13 Dose: 100 mg Documented by: Aspirin (Aspirin) 81 mg PO BID [facility] Last Admin: 08/02/19 20:13 Dose: 81 mg Documented by: Atorvastatin Calcium (Lipitor) 40 mg PO DAILY [facility] Last Admin: 08/02/19 09:06 Dose: 40 mg Documented by: Bisacodyl (Dulcolax) 10 mg RI Q2-3DAYS PRN PRN Reason: Constipation Bupropion HCl (Wellbutrin Xl) 150 mg PO DAILY [facility] Last Admin: 08/02/19 09:06 Dose: 150 mg Documented by: Docusate Sodium (Colace) 100 mg PO BID [facility] Last Admin: 08/02/19 20:13 Dose: 100 mg Documented by: Furosemide (Lasix) 20 mg PO DAILYP PRN PRN Reason: Edema Guaifenesin/Codeine Phosphate (Robitussin Ac) 10 ml PO Q4HP PRN PRN Reason: Cough Hydromorphone HCl (Dilaudid) 0 mg IV Q4HP PRN; Protocol PRN Reason: Per Pain Protocol Last Admin: 08/02/19 07:52 Dose: 0.5 mg Documented by: Sodium Chloride (Sodium Chloride 0.9%) 1,000 mls @ 50 mls/hr IV .Q20H [facility] Stop: 08/03/19 08:42 Last Admin: 08/02/19 18:50 Dose: 50 mls/hr Documented by: Acetaminophen (Ofirmev) 650 mg in 65 mls @ 130 mls/hr IV Q6HP PRN; Protocol PRN Reason: Per Pain Protocol/Fever > 101 Heparin Sodium/Dextrose 25,000 (unit/ Premix) 500 mls @ 22.099 mls/hr IV .[id number] [facility]; Protocol Last Titration: 08/03/19 06:15 Dose: 10 unit/kg/hr, 15.785 mls/hr Documented by: Iron Carb/Multivit/Freight Tallier/Folic Acid (Multivitamin W/Minerals) 1 tab PO DAILY [facility] Last Admin: 08/02/19 09:07 Dose: 1 tab Documented by: Levothyroxine Sodium (Synthroid) 100 mcg PO QAMAC [facility] Last Admin: 08/02/19 07:52 Dose: 100 mcg Documented by: Melatonin (Melatonin 3mg Tablet) 3 mg PO HSP PRN PRN Reason: Insomnia Methocarbamol (Robaxin) 750 mg PO Q6HP PRN PRN Reason: Muscle Spasm Last Admin: 08/03/19 04:10 Dose: 750 mg Documented by: Ondansetron HCl (Zofran Odt) 4 mg SL Q4-6HP PRN; Protocol PRN Reason: Nausea And Vomiting Ondansetron HCl (Zofran) 4 mg IV Q4-6HP PRN; Protocol PRN Reason: Nausea And Vomiting Ubidecarenone [Coq10 (] 50 Mg) 1 dose PO DAILY [facility] Last Admin: 08/02/19 09:43 Dose: Not Given Documented by: Polyethylene Glycol (Miralax) 17 gm PO DAILYP PRN PRN Reason: Constipation Scopolamine (Transderm-Scop) 1 patch TOPICAL PREOP PRN PRN Reason: Nausea And Vomiting Senna/Docusate Sodium (Senna Plus Tablet) 1 tab PO HS [facility] Last Admin: 08/02/19 20:13 Dose: 1 tab Documented by: Sodium Chloride (Saline Flush) 10 ml IV Q8 [facility] Last Admin: 08/03/19 04:12 Dose: Not Given Documented by: Spironolactone (Aldactone) 25 mg PO DAILYP PRN PRN Reason: Edema Vitamin B Complex (Vitamin B Complex) 1 cap PO DAILY [facility] Last Admin: 08/02/19 09:06 Dose: 1 cap Documented by: Vitamin D (Vitamin D3) 2,000 unit PO BID [facility] Last Admin: 08/02/19 20:13 Dose: 2,000 unit Documented by: Warfarin Sodium (Coumadin Per Pharmacy) 1 order PO UD [facility] Medical - PN: A/P - Time Spent With Patient Total time spent is greater than 50% in coordination of care (as documented) at patient's floor/unit and/or counseling patient: - Narrative A/P Narrative: A: *Right distal supracondylar femur fracture: s/p ORIF (07/31) *Atrial fibrillation: rate controlled *Mechanical mitral valve: *Anemia: dilutional component and post-op *Hypothyroidism: *Anxiety: *h/o CVA: P: -Fracture management / pain control per Dr. Glover, orthopedics -Restart anticoagulation, heparin drip tonight with Coumadin bridging -Continue home amiodarone -monitor H&H -cont home diuretics with prn IV, d/c IVF's and IV lasix today for +fluid balance/Edema -cont aspirin/statin -pt/ot -CM for placement -DVT prophylaxis: heparin- warfarin bridge per pharmacy Medical - PN: Qual - VTE Deep Vein Thrombosis/Pulmonary Embolism Present on Admission: No
--- NOTE | 2019-08-03 07:08 | Orthopedic Progress Note ---
Subjective Patient information: Note initiated : 08/03/19 at 7:05 am Service Date, if different from initiated Date: [] Patient: Crystal Conley a 69 y/o F admitted on 07/31/19 for fell. Chief Complaint: [S/p right distal femur fx] Ms. Conley is doing well and has no particular complaints. She denies any new onset chest pain, SOA, or calf tenderness. Principal diagnosis: Right displaced distal femur periprosthetic fx Objective Vital signs: Vital Signs Temp Pulse Resp BP Pulse Ox 08/03/19 04:00 98.2 F 54 L 16 105/55 99 08/03/19 00:00 97.9 F 60 16 115/55 98 08/02/19 22:55 58 L 08/02/19 19:27 98.7 F 18 88/43 98 08/02/19 16:00 98.3 F 66 12 98/47 100 08/02/19 12:00 98.4 F 62 12 97/41 98 08/02/19 08:00 97.9 F 58 L 12 96/46 97 Intake and Output 08/02/19 08/03/19 08/03/19 21:59 05:59 13:59 Intake Total 1440 564 0 Output Total 450 625 Balance 990 -61 0 Intake: IV 1000 204 0 Sodium Chloride 0.9% 1,000 ml @ 1000 50 mls/hr IV .Q20H DIETER Rx#: [id number] Heparin/D5w 25,000 Unit In 204 0 Premix 1 Bag @ 14 UNIT/KG/HR 22 .099 mls/hr IV .[id number] DIETER Rx# :[id number] Oral 440 360 Output: Urine Catheter Amount 450 625 Other: Meal Dinner Percent of Meal Consumed 50% Feeding Ability Independent Urine Color Dark Yellow Light [place] Urine Odor Normal Normal Weight 174 lb Intake & Output: Intake & Output 08/02/19 08/03/19 08/03/19 21:59 05:59 13:59 Intake Total 1440 564 0 Output Total 450 625 Balance 990 -61 0 Weight 174 lb Intake: IV 1000 204 0 Sodium Chloride 0.9% 1,000 ml @ 1000 50 mls/hr IV .Q20H DIETER Rx#: [id number] Heparin/D5w 25,000 Unit In 204 0 Premix 1 Bag @ 14 UNIT/KG/HR 22 .099 mls/hr IV .[id number] [facility] Rx# :[id number] Oral 440 360 Output: Urine Catheter Amount 450 625 Other: Meal Dinner Percent of Meal Consumed 50% Feeding Ability Independent Urine Color Dark Yellow Light [place] Urine Odor Normal Normal Incision: Yes healing, Yes clean and dry Incision clean and dry: Yes Dressing: Yes clean, Yes dry, Yes intact Weight bearing status: non (RLE) Neurological exam IM: Yes alert, Yes oriented X3, Yes motor sensory intact, Yes neurovascular intact Extremities exam IM: Yes calf tenderness (Neg bilat), Yes Ariel's sign (neg bilat), Yes Foot pink and warm, Yes neurovascular intact - Labs CBC & BMP: 08/03/19 04:00 08/03/19 04:00 Labs: Orthopedic Labs 08/03/19 08/03/19 08/02/19 04:00 04:00 19:00 PT 18.3 H 17.0 H INR 1.5 H 1.3 H APTT > 200 H* 08/02/19 08/02/19 08/01/19 19:00 05:10 05:35 PT 17.2 H 17.9 H INR 1.4 H 1.4 H APTT 49 H 07/31/19 17:14 PT 30.0 H INR 2.8 H APTT 08/03/19 08/02/19 08/02/19 04:00 19:00 05:10 Hgb 8.0 L 8.7 L 9.0 L Hct 24.1 L 25.8 L 26.9 L 08/01/19 08/01/19 07/31/19 19:32 05:35 17:14 Hgb 10.6 L 9.6 L 11.9 Hct 32.1 L 28.7 L 35.5 Assessment and Plan (1) Femur fracture, right NWB on RLE. Continue PT. I suggested a SNF for discharge but the patient refuses and would like to be discharged home with home health. Plan to discharge to home tomorrow am per hospitalist. Place silver dressing prior to discharge. Continue Coumadin per hospitalist/pharmacy. Follow-up with [facility] in 2 weeks. Status: Acute
[2019-08-03] MEDS ORDERED: FUROSEMIDE 40 MG/4 ML VIAL IV ONE ×2 (07:39→10:00)
[2019-08-03] MEDS ORDERED: ALBUMIN HUMAN 12.5 GM/50 ML BAG IV ONE ×2 (07:39→10:00)
[2019-08-03] MEDS ORDERED: SPIRONOLACTONE 25 MG TABLET PO ONE ×2 (07:40→10:00)
[2019-08-03] MEDS: LEVOTHYROXINE 100 MCG TABLET PO SCH (07:42)
--- NOTE | 2019-08-03 09:53 | Discharge Summary ---
Medical - DS: Prov Patient information: Note initiated : 08/03/19 at 9:51 am Service Date, if different from initiated Date: [] Patient: Crystal Conley 69 y/o F admitted on 07/31/19 for fell. Chief Complaint: [] Date of admission: 07/31/19 20:33 Discharge date: 08/06/19 Primary care physician: Shaina Sanchez Consults: 07/31/19 Consult to Physician [CONS] Stat Comment: Consulting Provider: Rom Adams Reason For Exam: Physician to Consult 07/31/19 17:09 Consult to Physician [CONS] Stat Comment: Consulting Provider: Mu Glover Reason For Exam: Physician to Consult Medical - DS: Meds - Discharge Medications Prescriptions: Aspirin [Adult Aspirin Regimen] 81 mg PO DAILY #1 tab Transmission Status: Pending to [facility] Enoxaparin [Lovenox] 60 mg SQ BID #2 syringe Transmission Status: Pending to [facility] HYDROcodone/APAP 5/325MG [Stebbins 5-325Mg] 1 tab PO Q6HP PRN #60 tab PRN Reason: Severe Pain Prescription Printed Methocarbamol [Robaxin] 750 mg PO Q8HP PRN #40 tab PRN Reason: Muscle Spasm Prescription Printed Active and Home Medications: Home Medications Amiodarone HCl [Pacerone] 100 mg PO HS 12/12/16 [History Confirmed 07/31/19 Last Taken 05/22/19 21:00] cholecalciferol (vitamin D3) 2,000 units PO BID 10/27/18 [History Confirmed 07/31/19 Last Taken 05/22/19 08:00] levothyroxine 100 mcg tablet 100 mcg PO DAILY 10/27/18 [History Confirmed 07/31/19 Last Taken 05/23/19 03:00] spironolactone 25 mg tablet 25 mg PO PRN tab 10/27/18 [History Confirmed 07/31/19 Last Taken 12/25/18 21:00] vitamin B complex 1 each PO DAILY 10/27/18 [History Confirmed 07/31/19 Last Taken 05/22/19 08:00] furosemide 20 mg tablet 20 mg PO PRN PRN tab 11/24/18 [History Confirmed 07/31/19 Last Taken Unknown] Atorvastatin [Lipitor] 40 mg PO DAILY #30 tab 01/07/19 [Rx Confirmed 07/31/19 Last Taken 05/22/19 08:00] Aspirin [Adult Aspirin Regimen] 81 mg PO BID 05/17/19 [History Confirmed 0 07/31/19 Last Taken 05/15/19] Ubidecarenone [Coq10] 50 mg PO DAILY 05/17/19 [History Confirmed 07/31/19 Last Taken 05/22/19 08:00] Warfarin [Coumadin] 2.5 mg PO DAILY 05/17/19 [History Confirmed 07/31/19 Last Taken 05/13/19] buPROPion HCL [Bupropion Xl] 150 mg PO DAILY 05/17/19 [History Confirmed 07/31/19 Last Taken 05/22/19 08:00] HYDROcodone/APAP 5/325MG [Stebbins 5-325Mg] 1 tab PO Q6HP PRN #60 tab 08/03/19 [Rx Last Taken Unknown] Methocarbamol [Robaxin] 750 mg PO Q8HP PRN #40 tab 08/03/19 [Rx Last Taken Unknown] Home Medications Amiodarone HCl [Pacerone] 100 mg PO HS 12/12/16 [History Confirmed 07/31/19 Last Taken 05/22/19 21:00] cholecalciferol (vitamin D3) 2,000 units PO BID 10/27/18 [History Confirmed 07/31/19 Last Taken 05/22/19 08:00] levothyroxine 100 mcg tablet 100 mcg PO DAILY 10/27/18 [History Confirmed 07/31/19 Last Taken 05/23/19 03:00] spironolactone 25 mg tablet 25 mg PO PRN tab 10/27/18 [History Confirmed 07/31/19 Last Taken 12/25/18 21:00] vitamin B complex 1 each PO DAILY 10/27/18 [History Confirmed 07/31/19 Last Taken 05/22/19 08:00] furosemide 20 mg tablet 20 mg PO PRN PRN tab 11/24/18 [History Confirmed 07/31/19 Last Taken Unknown] Atorvastatin [Lipitor] 40 mg PO DAILY #30 tab 01/07/19 [Rx Confirmed 07/31/19 Last Taken 05/22/19 08:00] Ubidecarenone [Coq10] 50 mg PO DAILY 05/17/19 [History Confirmed 07/31/19 Last Taken 05/22/19 08:00] Warfarin [Coumadin] 2.5 mg PO DAILY 05/17/19 [History Confirmed 07/31/19 Last Taken 05/13/19] buPROPion HCL [Bupropion Xl] 150 mg PO DAILY 05/17/19 [History Confirmed 07/31/19 Last Taken 05/22/19 08:00] HYDROcodone/APAP 5/325MG [Stebbins 5-325Mg] 1 tab PO Q6HP PRN #60 tab 08/03/19 [Rx Last Taken Unknown] Methocarbamol [Robaxin] 750 mg PO Q8HP PRN #40 tab 08/03/19 [Rx Last Taken Unknown] Aspirin [Adult Aspirin Regimen] 81 mg PO DAILY #1 tab 08/06/19 [Rx Last Taken Unknown] Enoxaparin [Lovenox] 60 mg SQ BID #2 syringe 08/06/19 [Rx Last Taken Unknown] Medical - DS: Hosp Hospital Course: Ms. Conley is a 69 year old F with a history of mechanical mitral valve on anticoagulation/atrial fibrillation on amiodarone who was in her usual state of health returned from [facility] this afternoon and slipped at home injuring her right knee. Following the fall she was unable to move or walk due to significant pain. She was brought into the ER for evaluation. Initial work-up was consistent with right femoral supracondylar fracture. Orthopedic was consulted. Of note she recently underwent right knee surgery by Dr. Arnold. It was decided patient will undergo operative intervention later in the evening. She is currently on Coumadin for history of mechanical valve with INR 2.8. She received 2 units of FFP/10 mg vitamin K. However INR remained elevated despite above measures and subsequently hospitalist service was consulted for inpatient admission while patient undergo planned surgery in the next 24 hours once INR less than 1.5. I discussed the case with Dr. Glover orthopedics. At time evaluation patient is alert and oriented. She was able to answer most questions. She denies seizure-like episode or loss of consciousness. She denies dizziness palpitation. She denies incontinence. She denied recent fever chills. She follows up with primary care physician regularly. She underwent mechanical valve placement in 2012. 07/31-INR 1.5. Due for surgery this morning. We will start heparin drip post surgery as a bridge until INR therapeutic. Will initiate Coumadin. Stable labs with hemoglobin 9.6. Pain well controlled. Will review postop 08/01-patient postop day 1. Doing well. Ongoing physical therapy. Case discussed with Dr. Glover about high risk thrombosis in the setting of mechanical mitral valve. Orthopedics expressed concerned about previous hospitalization during which she was started on postoperative anticoagulation and subsequent lead to severe bleed and had to be transferred to tertiary center. On that per text orthopedics feels it to be safe to initiate heparin drip 24 hours out of surgery. I discussed my concern and plan with Yong. She understands and agrees with the plan 08/02 Supple. No new complaints other than she is asking for Lasix as she is accumulating fluid. No coughing or shortness of breath. No bleeding through the dressing. 08/03 No overnight events or new complaints. No chest pain shortness of breath. Dressings are clean and dry per orthopedic PA, no bleeding through dressing.. Hemoglobin dropped more today to 7.6. No diarrhea. Says her leg is a little sore but no other complaints. 1prbc today. 08/04 No new complaints overnight events. Patient did get 1 unit of blood yesterday and hemoglobin came up to 8.6. Recheck this morning is 8.6. Heparin drip with warfarin bridging. Given concern for past hemorrhaging an subsequent interventional radiology intervention will monitor 1 more night for hemoglobin stabilization as INR becomes more therapeutic. 08/05 Patient doing well no new complaints. Hemoglobin trending up. A: *Right distal supracondylar femur fracture: s/p ORIF (07/31) *Atrial fibrillation: rate controlled *Mechanical mitral valve: *Anemia, acute: post-op + dilutional component *Hypothyroidism: *Anxiety: *h/o CVA: Discharge diagnosis: Right distal supracondylar periprosthetic fracture Secondary discharge diagnosis: Fibrillation and mechanical mitral valve Anemia Hypothyroidism anxiety history of stroke - Time Spent with Patient Total time spent providing and/or coordinating discharge services: Greater than 30 minutes Medical - DS: Exam - Constitutional Vitals: Vital Signs Temp Pulse Resp BP Pulse Ox 08/03/19 07:42 98.3 F 58 L 16 101/47 98 08/03/19 04:00 98.2 F 54 L 16 105/55 99 08/03/19 00:00 97.9 F 60 16 115/55 98 04/30/20 22:55 58 L 08/02/19 19:27 98.7 F 18 88/43 98 08/02/19 16:00 98.3 F 66 12 98/47 100 08/02/19 12:00 98.4 F 62 12 97/41 98 Intake and Output 08/02/19 08/03/19 08/03/19 21:59 05:59 13:59 Intake Total 1440 564 0 Output Total 450 625 Balance 990 -61 0 Intake: IV 1000 204 0 Sodium Chloride 0.9% 1,000 ml @ 1000 50 mls/hr IV .Q20H DIETER Rx#: [id number] Heparin/D5w 25,000 Unit In 204 0 Premix 1 Bag @ 14 UNIT/KG/HR 22 .099 mls/hr IV .[id number] DIETER Rx# :[id number] Oral 440 360 Output: Urine Catheter Amount 450 625 Other: Meal Dinner Percent of Meal Consumed 50% Feeding Ability Independent Urine Color Dark Yellow Light [place] Urine Odor Normal Normal Weight 78.925 kg Medical - DS: Data Labs on day of discharge: Labs from last 24 hours 08/03/19 08/03/19 08/03/19 04:00 04:00 04:00 WBC 4.4 L RBC 2.40 L Hgb 8.0 L Hct 24.1 L MCV 100.4 H MCH 33.3 MCHC 33.2 RDW 12.9 Plt Count 120 L MPV 10.9 H Gran % 68.0 Lymph % (Auto) 14.0 L [place] % (Auto) 16.7 H Eos % (Auto) 1.1 Baso % (Auto) 0.2 Gran # 3.00 Lymph # (Auto) 0.62 L [place] # (Auto) 0.74 Eos # (Auto) 0.05 Baso # (Auto) 0.01 PT 18.3 H INR 1.5 H APTT > 200 H* Sodium Potassium Chloride Carbon Dioxide Anion Gap BUN Creatinine GFR Calculation Glucose Uric Acid Calcium Phosphorus Magnesium Total Bilirubin Direct Bilirubin GGT AST ALT Alkaline Phosphatase Lactate Dehydrogenase Total Protein Albumin Globulin Albumin/Globulin Ratio Triglycerides 08/03/19 08/02/19 08/02/19 04:00 19:00 19:00 WBC 6.1 RBC 2.57 L Hgb 8.7 L Hct 25.8 L MCV 100.4 H MCH 33.9 MCHC 33.7 RDW 12.8 Plt Count 135 L MPV 11.1 H Gran % 78.2 H Lymph % (Auto) 8.0 L [place] % (Auto) 13.6 H Eos % (Auto) 0 Baso % (Auto) 0.2 Gran # 4.76 Lymph # (Auto) 0.49 L [place] # (Auto) 0.83 Eos # (Auto) 0 Baso # (Auto) 0.01 PT 17.0 H INR 1.3 H APTT Sodium 137 Potassium 4.1 Chloride 102 Carbon Dioxide 26 Anion Gap 9.0 BUN 13 Creatinine 0.5 L GFR Calculation 98 Glucose 120 H Uric Acid 4.0 Calcium 7.5 L Phosphorus 2.6 L Magnesium 1.6 Total Bilirubin 0.7 Direct Bilirubin 0.2 GGT 16 AST 27 ALT 13 Alkaline Phosphatase 70 Lactate Dehydrogenase 271 H Total Protein 5.0 L Albumin 2.5 L Globulin 2.5 Albumin/Globulin Ratio 1.0 Triglycerides 50 08/02/19 19:00 WBC RBC Hgb Hct MCV MCH MCHC RDW Plt Count MPV Gran % Lymph % (Auto) [place] % (Auto) Eos % (Auto) Baso % (Auto) Gran # Lymph # (Auto) [place] # (Auto) Eos # (Auto) Baso # (Auto) PT INR APTT 49 H Sodium Potassium Chloride Carbon Dioxide Anion Gap BUN Creatinine GFR Calculation Glucose Uric Acid Calcium Phosphorus Magnesium Total Bilirubin Direct Bilirubin GGT AST ALT Alkaline Phosphatase Lactate Dehydrogenase Total Protein Albumin Globulin Albumin/Globulin Ratio Triglycerides Medical - DS: A/P - Patient/Caregiver Discharge Instructions Activity: as per physical therapy Diet: Regular Diet Additional Instructions: NWB on RLE Prescriptions: HYDROcodone/APAP 5/325MG [Stebbins 5-325Mg] 1 tab PO Q6HP PRN #60 tab PRN Reason: Severe Pain Prescription Printed Methocarbamol [Robaxin] 750 mg PO Q8HP PRN #40 tab PRN Reason: Muscle Spasm Prescription Printed Other Amb Orders: Walker Location: None Selected Prothrombin Time INR Time Frame: 2 Days, Location: None Selected - Follow up Plan Follow up with: Shaina Sanchez ARNP [Primary Care Provider] - 08/14/19 9:45 am Tyron Cox PA-C [Physician Facility Designer] - 08/21/19 9:10 am (Please arrive 15 minutes early) Disposition: Home Health Service Prognosis: Fair Rehab Potential: Fair Overall status at discharge: patient is progressing back to baseline Medical - DS: Qual - VTE Deep Vein Thrombosis/Pulmonary Embolism Present on Admission: No
[2019-08-03] MEDS: buPROPion 150 MG TAB.XL.24H PO SCH (09:58)
[2019-08-03] MEDS: VITAMIN B COMPLEX 1 CAPSULE PO SCH (09:59)
[2019-08-03] MEDS: MULTIVIT,THER IRON,CA,FA & MIN 1 TABLET PO SCH (09:59)
[2019-08-03] MEDS: DOCUSATE SODIUM 100 MG CAPSULE PO SCH ×2 (09:59→20:19)
[2019-08-03] MEDS: VITAMIN D3 1,000 UNIT TABLET PO SCH ×2 (10:00→20:19)
[2019-08-03] MEDS: ATORVASTATIN 20 MG TABLET PO SCH (10:00)
[2019-08-03] MEDS: Ubidecarenone [Coq10] 50 MG PO SCH (10:01)
[2019-08-03] MEDS: ASPIRIN 81 MG TAB.CHEW PO SCH (12:02)
[2019-08-03] MEDS ORDERED: WARFARIN 2 MG TABLET PO ONE (14:00)
[2019-08-03] MEDS: SENNOSIDES/DOCUSATE SODIUM 1 TAB TABLET PO SCH (20:19)
[2019-08-03] MEDS: AMIODARONE HCL 200 MG TABLET PO SCH (20:19)
[2019-08-04 04:43] LABS: Basophils # (Auto) 0.01 K/mcL (0.00-0.30); Basophils % (Auto) 0.3 % (0.0-2.0); Eosinophils # (Auto) 0.21 K/mcL (0.00-0.70); Eosinophils % (Auto) 5.6 % (0.0-7.0); Granulocytes % (Auto) 56.3 % (38.0-78.0); Hematocrit 22.6 % (34.1-44.9); Hemoglobin 7.6 g/dL (11.2-15.7); Lymphocytes # (Auto) 0.77 K/mcL (1.50-4.80); Lymphocytes % (Auto) 20.5 % (15.5-49.0); Mean Cell Volume 100.4 fL (80.0-100.0); Mean Corpuscular HGB Conc 33.6 g/dL (31.0-36.0); Monocytes # (Auto) 0.65 K/mcL (0.10-0.90); Monocytes % (Auto) 17.3 % (1.0-12.0); Platelet Count 131 K/mcL (140-440); RBC 2.25 M/mcL (3.59-5.38); Red Cell Distribution Width 12.9 % (11.5-14.5); WBC 3.8 K/mcL (4.50-11.00)
[2019-08-04 04:54] LABS: Blood Urea Nitrogen 10 mg/dl (8-23); Carbon Dioxide 29 mmol/L (22-30); Chloride 99 mmol/L (96-108); Glomerular Filtration Rate 98; Glucose 100 mg/dL (70-105); INR 1.6 (0.9-1.1); Prothrombin Time 19.4 sec (11.9-14.5)
[2019-08-04] MEDS: METHOCARBAMOL 750 MG TABLET PO PRN ×3 (05:50→23:42)
--- NOTE | 2019-08-04 07:16 | Orthopedic Progress Note ---
Subjective Patient information: Note initiated : 08/04/19 at 7:14 am Service Date, if different from initiated Date: [] Patient: Crystal Conley 69 y/o F admitted on 07/31/19 for fall. She is POD#3 s/p ORIF periprosthetic femur fracture with Dr. Glover. Overall admits to pain in the right knee but states it is managed. Denies other complaints including SOB, CP, N/V, dizziness, fevers/chills. Chief Complaint: Right knee pain. Principal diagnosis: Right displaced distal femur periprosthetic fx Pertinent ROS: negative except per HPI. Objective Vital signs: Vital Signs Temp Pulse Resp BP BP Pulse Ox 08/04/19 04:00 98.5 F 57 L 16 105/55 97 08/03/19 23:38 98.8 F 16 115/55 96 08/03/19 21:21 60 08/03/19 19:39 98.0 F 16 110/62 98 08/03/19 16:00 98.2 F 59 L 18 92/40 97 08/03/19 11:39 98.8 F 61 16 95/46 96 08/03/19 07:42 98.3 F 58 L 16 101/47 98 Intake and Output 08/03/19 08/04/19 08/04/19 21:59 05:59 13:59 Intake Total 1965 554 Output Total 200 550 Balance 1765 4 Intake: Nourishment/Supplement quantity 240 (ml) IV 1185 104 Sodium Chloride 0.9% 1,000 ml @ 1000 50 mls/hr IV .Q20H DIETER Rx#: [id number] Heparin/D5w 25,000 Unit In 185 104 Premix 1 Bag @ 14 UNIT/KG/HR 22 .099 mls/hr IV .[id number] DIETER Rx# :[id number] Oral 540 450 Output: Urine Catheter Amount 200 550 Other: Meal Dinner Percent of Meal Consumed 0% Nourishment/Supplement name ensure Urine Appearance Clear Clear Urine Color Bright Yellow Bright Yellow Uretheral ([place]) Bright Yellow Urine Odor Normal Normal Weight 174 lb 124 lb 8 oz Intake & Output: Intake & Output 08/03/19 08/04/19 08/04/19 21:59 05:59 13:59 Intake Total 1964 554 Output Total 200 550 Balance 1765 4 Weight 174 lb 124 lb 8 oz Intake: Nourishment/Supplement quantity 240 (ml) IV 1185 104 Sodium Chloride 0.9% 1,000 ml @ 1000 50 mls/hr IV .Q20H DIETER Rx#: [id number] Heparin/D5w 25,000 Unit In 185 104 Premix 1 Bag @ 14 UNIT/KG/HR 22 .099 mls/hr IV .[id number] DIETER Rx# :[id number] Oral 540 450 Output: Urine Catheter Amount 200 550 Other: Meal Dinner Percent of Meal Consumed 0% Nourishment/Supplement name ensure Urine Appearance Clear Clear Urine Color Bright Yellow Bright Yellow Uretheral ([place]) Bright Yellow Urine Odor Normal Normal Incision: Yes healing, No draining, Yes clean and dry Incision clean and dry: Yes (silver dressings in place with no drainage.) Dressing: Yes clean, Yes dry, Yes intact (regine wrap and knee ranger in place.) Weight bearing status: non Range of motion: deferred at knee, full ROM foot/ankle Neurological exam IM: Yes neurovascular intact Extremities exam IM: No calf tenderness, Yes normal inspection, No Ariel's sign, Yes Foot pink and warm, Yes neurovascular intact - Labs CBC & BMP: 08/04/19 04:00 08/04/19 04:00 Labs: Orthopedic Labs 08/04/19 08/04/19 08/03/19 04:00 04:00 23:00 PT 19.4 H INR 1.6 H APTT 101 H 93 H 08/03/19 08/03/19 08/03/19 12:59 04:00 04:00 PT 18.3 H INR 1.5 H APTT 133 H > 200 H* 08/02/19 08/02/19 08/02/19 19:00 19:00 05:10 PT 17.0 H 17.2 H INR 1.3 H 1.4 H APTT 49 H 08/01/19 07/31/19 05:35 17:14 PT 17.9 H 30.0 H INR 1.4 H 2.8 H APTT 08/04/19 08/03/19 08/02/19 04:00 04:00 19:00 Hgb 7.6 L 8.0 L 8.7 L Hct 22.6 L 24.1 L 25.8 L 04/08/01/19 08/01/19 05:10 19:32 05:35 Hgb 9.0 L 10.6 L 9.6 L Hct 26.9 L 32.1 L 28.7 L 07/31/19 17:14 Hgb 11.9 Hct 35.5 Assessment and Plan (1) Femur fracture, right Pt is a 69 yo female POD#3 s/p ORIF right periprosthetic femur fracture. She gaytan s have a history of prior postoperative anticoagulation leading to subsequent severe bleed following TKA. --H/H trending downwards at 7.6/22.6, pt will need transfusion today. --Did discuss anticoagulation with hospitalist--will proceed with current anticoagulation. Following transfusion will make adjustments accordingly with/per hospitalist as she does have mechanical heart valve. --PT/OT: NWB with RLE. Keep knee ranger in place. May leave open while icing in bed but must put on while transferring, etc. --continue pain medications. --continue diet. --prophy: SCDs, Heparin drip currently with bridge to warfarin. --dispo: home with home health as pt refused rehab. Status: Acute
--- NOTE | 2019-08-04 07:43 | Internal Med Progress Note ---
Medical - PN: Subj Patient information: Note initiated : 08/04/19 at 7:40 am Service Date, if different from initiated Date: [] Patient: Crystal Conley a 69 y/o F admitted on 07/31/19 for fell. Chief Complaint: [] Interval history: Ms. Conley is a 69 year old F with a history of mechanical mitral valve on anticoagulation/atrial fibrillation on amiodarone who was in her usual state of health returned from [facility] this afternoon and slipped at home injuring her right knee. Following the fall she was unable to move or walk due to significant pain. She was brought into the ER for evaluation. Initial work-up was consistent with right femoral supracondylar fracture. Orthopedic was consulted. Of note she recently underwent right knee surgery by Dr. Arnold. It was decided patient will undergo operative intervention later in the evening. She is currently on Coumadin for history of mechanical valve with INR 2.8. She received 2 units of FFP/10 mg vitamin K. However INR remained elevated despite above measures and subsequently hospitalist service was consulted for inpatient admission while patient undergo planned surgery in the next 24 hours once INR less than 1.5. I discussed the case with Dr. Glover orthopedics. At time evaluation patient is alert and oriented. She was able to answer most questions. She denies seizure-like episode or loss of consciousness. She denies dizziness palpitation. She denies incontinence. She denied recent fever chills. She follows up with primary care physician regularly. She underwent mechanical valve placement in 2012. 07/31-INR 1.5. Due for surgery this morning. We will start heparin drip post surgery as a bridge until INR therapeutic. Will initiate Coumadin. Stable labs with hemoglobin 9.6. Pain well controlled. Will review postop 08/01-patient postop day 1. Doing well. Ongoing physical therapy. Case discussed with Dr. Glover about high risk thrombosis in the setting of mechanical mitral valve. Orthopedics expressed concerned about previous hospitalization during which she was started on postoperative anticoagulation an d subsequent lead to severe bleed and had to be transferred to tertiary center. On that per text orthopedics feels it to be safe to initiate heparin drip 24 hours out of surgery. I discussed my concern and plan with Yong. She understands and agrees with the plan 08/02 Supple. No new complaints other than she is asking for Lasix as she is accumulating fluid. No coughing or shortness of breath. No bleeding through the dressing. 5/ No overnight events or new complaints. No chest pain shortness of breath. Dressings are clean and dry per orthopedic PA, no bleeding through dressing.. Hemoglobin dropped more today to 7.6. No diarrhea. Says her leg is a little sore but no other complaints. Review of Systems: denies headache/fever/chills/nausea/vomiting/chest or abdominal pain/cough/d yspnea/diarrhea. Otherwise see above. - Constitutional Vitals: Vital Signs Temp Pulse Resp BP Pulse Ox 98.5 F 57 L 16 105/55 97 08/04/19 04:00 08/04/19 04:00 08/04/19 04:00 08/04/19 04:00 08/04/19 04:00 Period Temp Pulse Resp BP Sys/Mai Pulse Ox Last 24 Hr 98.0 F-98.8 F 57-61 16-18 92-115/40-62 96-98 Intake and Output 08/03/19 08/04/19 08/04/19 21:59 05:59 13:59 Intake Total 1965 554 Output Total 200 550 Balance 1765 4 Weight 78.925 kg 56.472 kg Intake & Output: Intake & Output 08/03/19 08/04/19 08/04/19 21:59 05:59 13:59 Intake Total 1965 554 Output Total 200 550 Balance 1765 4 Weight 78.925 kg 56.472 kg Intake: Nourishment/Supplement quantity 240 (ml) IV 1185 104 Sodium Chloride 0.9% 1,000 ml @ 1000 50 mls/hr IV .Q20H [facility] Rx#: [id number] Heparin/D5w 25,000 Unit In 185 104 Premix 1 Bag @ 14 UNIT/KG/HR 22 .099 mls/hr IV .[id number] [facility] Rx# :[id number] Oral 540 450 Output: Urine Catheter Amount 200 550 Other: Meal Dinner Percent of Meal Consumed 0% Nourishment/Supplement name ensure Urine Appearance Clear Clear Urine Color Bright Yellow Bright Yellow Uretheral ([place]) Bright Yellow Urine Odor Normal Normal Exam: General: Alert, Awake, No acute Distress Eyes/N/T: EOMI, Head/Neck: neck supple, CV: RRR, 2/6 SM Pulm: Clear b/l, no wheezing/rhonchi/rales Abd: soft, nontender, +BS x4 Ext: no clubbing/cyanosis, mild edema left leg, right leg in dressings Neuro: Alert, awake, moves all extremities, Skin: warm/dry Medical - PN: Obj Da - Labs CBC & Chem 7: 08/04/19 04:00 08/04/19 04:00 Labs: Abnormal Lab Results 08/04/19 08/04/19 08/04/19 04:00 04:00 04:00 WBC 3.8 L RBC 2.25 L Hgb 7.6 L Hct 22.6 L MCV 100.4 H Plt Count 131 L MPV 11.0 H Gran % Lymph % (Auto) [place] % (Auto) 17.3 H Lymph # (Auto) 0.77 L Seg Neutrophils % Lymphocytes % RBC Morphology Anisocytosis Macrocytosis PT INR APTT 101 H Creatinine 0.5 L Glucose Calcium 8.0 L Phosphorus Magnesium Total Bilirubin Lactate Dehydrogenase Total Protein Albumin 08/04/19 08/03/19 08/03/19 04:00 23:00 12:59 WBC RBC Hgb Hct MCV Plt Count MPV Gran % Lymph % (Auto) [place] % (Auto) Lymph # (Auto) Seg Neutrophils % Lymphocytes % RBC Morphology Anisocytosis Macrocytosis PT 19.4 H INR 1.6 H APTT 93 H 133 H Creatinine Glucose Calcium Phosphorus Magnesium Total Bilirubin Lactate Dehydrogenase Total Protein Albumin 08/03/19 08/03/19 08/03/19 04:00 04:00 04:00 WBC 4.4 L RBC 2.40 L Hgb 8.0 L Hct 24.1 L MCV 100.4 H Plt Count 120 L MPV 10.9 H Gran % Lymph % (Auto) 14.0 L [place] % (Auto) 16.7 H Lymph # (Auto) 0.62 L Seg Neutrophils % Lymphocytes % RBC Morphology Anisocytosis Macrocytosis PT 18.3 H INR 1.5 H APTT > 200 H* Creatinine Glucose Calcium Phosphorus Magnesium Total Bilirubin Lactate Dehydrogenase Total Protein Albumin 08/03/19 08/02/19 08/02/19 04:00 19:00 19:00 WBC RBC 2.57 L Hgb 8.7 L Hct 25.8 L MCV 100.4 H Plt Count 135 L MPV 11.1 H Gran % 78.2 H Lymph % (Auto) 8.0 L [place] % (Auto) 13.6 H Lymph # (Auto) 0.49 L Seg Neutrophils % Lymphocytes % RBC Morphology Anisocytosis Macrocytosis PT 17.0 H INR 1.3 H APTT Creatinine 0.5 L Glucose 120 H Calcium 7.5 L Phosphorus 2.6 L Magnesium Total Bilirubin Lactate Dehydrogenase 271 H Total Protein 5.0 L Albumin 2.5 L 08/02/19 08/02/19 08/02/19 19:00 05:10 05:10 WBC RBC Hgb Hct MCV Plt Count MPV Gran % Lymph % (Auto) [place] % (Auto) Lymph # (Auto) Seg Neutrophils % Lymphocytes % RBC Morphology Anisocytosis Macrocytosis PT 17.2 H INR 1.4 H APTT 49 H Creatinine Glucose 131 H Calcium 7.8 L Phosphorus Magnesium 1.5 L Total Bilirubin 1.1 H Lactate Dehydrogenase 329 H Total Protein 5.1 L Albumin 2.6 L 08/02/19 08/01/19 08/01/19 05:10 19:32 05:35 WBC RBC 2.68 L Hgb 9.0 L 10.6 L Hct 26.9 L 32.1 L MCV 100.4 H Plt Count 107 L MPV 10.9 H Gran % Lymph % (Auto) [place] % (Auto) Lymph # (Auto) Seg Neutrophils % 84 H 86 H Lymphocytes % 7 L RBC Morphology Abnorm A Abnorm A Anisocytosis Few A Macrocytosis 1+ A 1+ A PT INR APTT Creatinine Glucose Calcium Phosphorus Magnesium Total Bilirubin Lactate Dehydrogenase Total Protein Albumin Meds: Medications Acetaminophen (Tylenol) 650 mg PO Q4-6HP PRN; Protocol PRN Reason: Per Pain Protocol/Fever > 101 Hydrocodone Bitart/Acetaminophen ([place] 5/325mg) 1 tab PO Q6HP PRN; Protocol PRN Reason: Severe Pain Last Admin: 08/03/19 21:00 Dose: 1 tab Documented by: Amiodarone HCl (Cordarone) 100 mg PO HS [facility] Last Admin: 08/03/19 20:19 Dose: 100 mg Documented by: Atorvastatin Calcium (Lipitor) 40 mg PO DAILY [facility] Last Admin: 08/03/19 10:00 Dose: 40 mg Documented by: Bisacodyl (Dulcolax) 10 mg MA Q2-3DAYS PRN PRN Reason: Constipation Bupropion HCl (Wellbutrin Xl) 150 mg PO DAILY [facility] Last Admin: 08/03/19 09:58 Dose: 150 mg Documented by: Docusate Sodium (Colace) 100 mg PO BID [facility] Last Admin: 08/03/19 20:19 Dose: 100 mg Documented by: Furosemide (Lasix) 20 mg PO DAILYP PRN PRN Reason: Edema Guaifenesin/Codeine Phosphate (Robitussin Ac) 10 ml PO Q4HP PRN PRN Reason: Cough Hydromorphone HCl (Dilaudid) 0 mg IV Q4HP PRN; Protocol PRN Reason: Per Pain Protocol Last Admin: 08/02/19 07:52 Dose: 0.5 mg Documented by: Acetaminophen (Ofirmev) 650 mg in 65 mls @ 130 mls/hr IV Q6HP PRN; Protocol PRN Reason: Per Pain Protocol/Fever > 101 Heparin Sodium/Dextrose 25,000 (unit/ Premix) 500 mls @ 22.099 mls/hr IV .[id number] [facility]; Protocol Last Titration: 08/04/19 05:30 Dose: 4 unit/kg/hr, 6.314 mls/hr Documented by: Iron Carb/Multivit/Fire Sprinkler App[employer]atus [employer]/Folic Acid (Multivitamin W/Minerals) 1 tab PO DAILY [facility] Last Admin: 08/03/19 09:59 Dose: 1 tab Documented by: Levothyroxine Sodium (Synthroid) 100 mcg PO QAMAC [facility] Last Admin: 08/03/19 07:42 Dose: 100 mcg Documented by: Melatonin (Melatonin 3mg Tablet) 3 mg PO HSP PRN PRN Reason: Insomnia Methocarbamol (Robaxin) 750 mg PO Q6HP PRN PRN Reason: Muscle Spasm Last Admin: 08/04/19 05:50 Dose: 750 mg Documented by: Ondansetron HCl (Zofran Odt) 4 mg SL Q4-6HP PRN; Protocol PRN Reason: Nausea And Vomiting Ondansetron HCl (Zofran) 4 mg IV Q4-6HP PRN; Protocol PRN Reason: Nausea And Vomiting Ubidecarenone [Coq10 (] 50 Mg) 1 dose PO DAILY [facility] Last Admin: 08/03/19 10:01 Dose: Not Given Documented by: Polyethylene Glycol (Miralax) 17 gm PO DAILYP PRN PRN Reason: Constipation Scopolamine (Transderm-Scop) 1 patch TOPICAL PREOP PRN PRN Reason: Nausea And Vomiting Senna/Docusate Sodium (Senna Plus Tablet) 1 tab PO HS [facility] Last Admin: 08/03/19 20:19 Dose: 1 tab Documented by: Sodium Chloride (Saline Flush) 10 ml IV Q8 [facility] Last Admin: 08/03/19 20:19 Dose: Not Given Documented by: Spironolactone (Aldactone) 25 mg PO DAILYP PRN PRN Reason: Edema Vitamin B Complex (Vitamin B Complex) 1 cap PO DAILY [facility] Last Admin: 08/03/19 09:59 Dose: 1 cap Documented by: Vitamin D (Vitamin D3) 2,000 unit PO BID [facility] Last Admin: 08/03/19 20:19 Dose: 2,000 unit Documented by: Warfarin Sodium (Coumadin Per Pharmacy) 1 order PO UD [facility] Medical - PN: A/P - Time Spent With Patient Total time spent is greater than 50% in coordination of care (as documented) at patient's floor/unit and/or counseling patient: - Narrative A/P Narrative: A: *Right distal supracondylar femur fracture: s/p ORIF (07/31) *Atrial fibrillation: rate controlled *Mechanical mitral valve: *Anemia, acute: post-op + dilutional component -Hgb 7.6<8.0 *Hypothyroidism: *Anxiety: *h/o CVA: P: -Fracture management / pain control per Dr. Glover, orthopedics -heparin drip with Coumadin bridging, will need to restart ASA as well -Continue home amiodarone -monitor H&H closely, monitor for bleeding, 1 PRBC today -cont home diuretics with prn IV, d/c IVF's and IV lasix today for +fluid balance/Edema -cont aspirin/statin -pt/ot -CM for placement -DVT prophylaxis: heparin- warfarin bridge per pharmacy Medical - PN: Qual - VTE Deep Vein Thrombosis/Pulmonary Embolism Present on Admission: No
[2019-08-04] MEDS ORDERED: 0.9 % SODIUM CHLORIDE 250 ML IV SCH (08:15)
[2019-08-04] MEDS ORDERED: ALBUMIN HUMAN 12.5 GM/50 ML BAG IV ONE (08:19)
[2019-08-04] MEDS ORDERED: FUROSEMIDE 40 MG/4 ML VIAL IV ONE (08:19)
[2019-08-04] MEDS: HYDROcodone/APAP 5/325MG TABLET PO PRN (08:31)
[2019-08-04] MEDS: buPROPion 150 MG TAB.XL.24H PO SCH (08:37)
[2019-08-04] MEDS: VITAMIN B COMPLEX 1 CAPSULE PO SCH (08:37)
[2019-08-04] MEDS: DOCUSATE SODIUM 100 MG CAPSULE PO SCH ×2 (08:37→21:37)
[2019-08-04] MEDS: ATORVASTATIN 20 MG TABLET PO SCH (08:38)
[2019-08-04] MEDS: LEVOTHYROXINE 100 MCG TABLET PO SCH (08:38)
[2019-08-04] MEDS: VITAMIN D3 1,000 UNIT TABLET PO SCH ×2 (08:39→21:37)
[2019-08-04] MEDS: MULTIVIT,THER IRON,CA,FA & MIN 1 TABLET PO SCH (08:39)
[2019-08-04] MEDS: Ubidecarenone [Coq10] 50 MG PO SCH (08:42)
[2019-08-04] MEDS: 0.9 % SODIUM CHLORIDE 10 ML SYRINGE IV SCH ×3 (08:57→21:39)
[2019-08-04] MEDS: HEPARIN/D5W 25,000 UNIT in PREMIX 1 BAG IV SCH (09:12)
[2019-08-04] MEDS ORDERED: WARFARIN 2.5 MG TABLET PO ONE (14:00)
[2019-08-04 17:46] LABS: Hematocrit 25.6 % (34.1-44.9); Hemoglobin 8.6 g/dL (11.2-15.7)
[2019-08-04] MEDS: SENNOSIDES/DOCUSATE SODIUM 1 TAB TABLET PO SCH (21:38)
[2019-08-04] MEDS: AMIODARONE HCL 200 MG TABLET PO SCH (21:38)
[2019-08-05 05:08] LABS: Basophils # (Auto) 0.01 K/mcL (0.00-0.30); Basophils % (Auto) 0.3 % (0.0-2.0); Eosinophils # (Auto) 0.31 K/mcL (0.00-0.70); Eosinophils % (Auto) 8.4 % (0.0-7.0); Hematocrit 25.5 % (34.1-44.9); Hemoglobin 8.6 g/dL (11.2-15.7); Lymphocytes # (Auto) 0.91 K/mcL (1.50-4.80); Lymphocytes % (Auto) 24.7 % (15.5-49.0); Mean Cell Volume 97.3 fL (80.0-100.0); Mean Corpuscular HGB Conc 33.7 g/dL (31.0-36.0); Mean Platelet Volume 10.4 fL (7.4-10.4); Monocytes # (Auto) 0.65 K/mcL (0.10-0.90); Monocytes % (Auto) 17.6 % (1.0-12.0); Platelet Count 163 K/mcL (140-440); RBC 2.62 M/mcL (3.59-5.38); WBC 3.7 K/mcL (4.50-11.00)
[2019-08-05 05:16] LABS: INR 1.7 (0.9-1.1)
[2019-08-05 05:21] LABS: ALT/SGPT 12 U/l (0-40); AST/SGOT 23 U/l (0-37); Albumin 2.8 gm/dL (3.2-5.2); Albumin/Globulin Ratio 1.1 (1.0-2.3); Alkaline Phosphatase 69 U/L (39-117); Bilirubin,Total 1.8 mg/dL (0.0-1.0); Blood Urea Nitrogen 9 mg/dl (8-23); Calcium 8.1 mg/dl (8.6-10.4); Carbon Dioxide 29 mmol/L (22-30); Chloride 100 mmol/L (96-108); Globulin 2.5 gm/dL (2.2-3.7); Glomerular Filtration Rate 98; Glucose 90 mg/dL (70-105); Lactate Dehydrogenase 284 U/L (94-250); Triglycerides 59 mg/dl (<150); Uric Acid 3.6 mg/dL (2.5-8.0)
[2019-08-05 05:24] LABS: Bilirubin,Direct 0.4 mg/dL (0.0-0.3); Phosphorous 3.4 mg/dL (2.7-4.5)
[2019-08-05] MEDS: 0.9 % SODIUM CHLORIDE 10 ML SYRINGE IV SCH ×3 (05:55→22:40)
--- NOTE | 2019-08-05 07:40 | Internal Med Progress Note ---
Medical - PN: Subj Patient information: Note initiated : 08/05/19 at 7:39 am Service Date, if different from initiated Date: [] Patient: Crystal Conley a 69 y/o F admitted on 07/31/19 for fell. Chief Complaint: [] Interval history: Ms. Conley is a 69 year old F with a history of mechanical mitral valve on anticoagulation/atrial fibrillation on amiodarone who was in her usual state of health returned from [facility] this afternoon and slipped at home injuring her right knee. Following the fall she was unable to move or walk due to significant pain. She was brought into the ER for evaluation. Initial work-up was consistent with right femoral supracondylar fracture. Orthopedic was consulted. Of note she recently underwent right knee surgery by Dr. Arnold. It was decided patient will undergo operative intervention later in the evening. She is currently on Coumadin for history of mechanical valve with INR 2.8. She received 2 units of FFP/10 mg vitamin K. However INR remained elevated despite above measures and subsequently hospitalist service was consulted for inpatient admission while patient undergo planned surgery in the next 24 hours once INR less than 1.5. I discussed the case with Dr. Glover orthopedics. At time evaluation patient is alert and oriented. She was able to answer most questions. She denies seizure-like episode or loss of consciousness. She denies dizziness palpitation. She denies incontinence. She denied recent fever chills. She follows up with primary care physician regularly. She underwent mechanical valve placement in 2012. 07/31-INR 1.5. Due for surgery this morning. We will start heparin drip post surgery as a bridge until INR therapeutic. Will initiate Coumadin. Stable labs with hemoglobin 9.6. Pain well controlled. Will review postop 08/01-patient postop day 1. Doing well. Ongoing physical therapy. Case discussed with Dr. Glover about high risk thrombosis in the setting of mechanical mitral valve. Orthopedics expressed concerned about previous hospitalization during which she was started on postoperative anticoagulation an d subsequent lead to severe bleed and had to be transferred to tertiary center. On that per text orthopedics feels it to be safe to initiate heparin drip 24 hours out of surgery. I discussed my concern and plan with Yong. She understands and agrees with the plan 08/02 Supple. No new complaints other than she is asking for Lasix as she is accumulating fluid. No coughing or shortness of breath. No bleeding through the dressing. 5/2 No overnight events or new complaints. No chest pain shortness of breath. Dressings are clean and dry per orthopedic PA, no bleeding through dressing.. Hemoglobin dropped more today to 7.6. No diarrhea. Says her leg is a little sore but no other complaints. 5/3 No new complaints overnight events. Patient did get 1 unit of blood yesterday and hemoglobin came up to 8.6. Recheck this morning is 8.6. Heparin drip with warfarin bridging. Given concern for past hemorrhaging an subsequent interventional radiology intervention will monitor 1 more night for hemoglobin stabilization as INR becomes more therapeutic. Review of Systems: denies headache/fever/chills/nausea/vomiting/chest or abdominal pain/cough/dyspnea/diarrhea. Otherwise see above. - Constitutional Vitals: Vital Signs Temp Pulse Resp BP Pulse Ox 98.8 F 61 12 112/50 94 08/04/19 23:01 08/04/19 23:01 08/04/19 23:01 08/04/19 23:01 08/04/19 23:01 Period Temp Pulse Resp BP Sys/Mai Pulse Ox Last 24 Hr 98.0 F-98.8 F 57-76 12-18 89-112/37-62 94-99 Intake and Output 08/04/19 08/05/19 08/05/19 21:59 05:59 13:59 Intake Total 915 65 Output Total 1475 450 Balance -560 -385 Weight 50.349 kg Intake & Output: Intake & Output 08/04/19 08/05/19 08/05/19 21:59 05:59 13:59 Intake Total 915 65 Output Total 1475 450 Balance -560 -385 Weight 50.349 kg Intake: IV 50 65 Sodium Chloride 0.9% 250 ml @ 0 20 mls/hr IV .[id number] [facility] Rx#: [id number] Oral 865 Output: Urine Catheter Amount 1150 Void Amount 325 450 Other: Meal Lunch Percent of Meal Consumed 25% Feeding Ability Independent Urine Appearance Clear Clear Urine Color Bright Yellow Light [place] Exam: General: Alert, Awake, No acute Distress Eyes/N/T: EOMI, Head/Neck: neck supple, CV: RRR, 2/6 SM Pulm: Clear b/l, no wheezing/rhonchi/rales Abd: soft, nontender, +BS x4 Ext: no clubbing/cyanosis, right leg in dressings Neuro: Alert, awake, moves all extremities, Skin: warm/dry Medical - PN: Obj Da - Labs CBC & Chem 7: 08/05/19 04:00 08/05/19 04:00 Labs: Abnormal Lab Results 08/05/19 08/05/19 08/05/19 04:00 04:00 04:00 WBC 3.7 L RBC 2.62 L Hgb 8.6 L Hct 25.5 L MCV RDW 16.0 H Plt Count MPV Gran % Lymph % (Auto) [place] % (Auto) 17.6 H Eos % (Auto) 8.4 H Lymph # (Auto) 0.91 L Seg Neutrophils % RBC Morphology Macrocytosis PT INR APTT 70 H Creatinine 0.5 L Glucose Calcium 8.1 L Phosphorus Total Bilirubin 1.8 H Direct Bilirubin 0.4 H Lactate Dehydrogenase 284 H Total Protein 5.3 L Albumin 2.8 L 08/05/19 08/04/19 08/04/19 04:00 16:45 04:00 WBC RBC Hgb 8.6 L Hct 25.6 L MCV RDW Plt Count MPV Gran % Lymph % (Auto) [place] % (Auto) Eos % (Auto) Lymph # (Auto) Seg Neutrophils % RBC Morphology Macrocytosis PT 20.0 H INR 1.7 H APTT 101 H Creatinine Glucose Calcium Phosphorus Total Bilirubin Direct Bilirubin Lactate Dehydrogenase Total Protein Albumin 08/04/19 08/04/19 08/04/19 04:00 04:00 04:00 WBC 3.8 L RBC 2.25 L Hgb 7.6 L Hct 22.6 L MCV 100.4 H RDW Plt Count 131 L MPV 11.0 H Gran % Lymph % (Auto) [place] % (Auto) 17.3 H Eos % (Auto) Lymph # (Auto) 0.77 L Seg Neutrophils % RBC Morphology Macrocytosis PT 19.4 H INR 1.6 H APTT Creatinine 0.5 L Glucose Calcium 8.0 L Phosphorus Total Bilirubin Direct Bilirubin Lactate Dehydrogenase Total Protein Albumin 08/03/19 08/03/19 08/03/19 23:00 12:59 04:00 WBC RBC Hgb Hct MCV RDW Plt Count MPV Gran % Lymph % (Auto) [place] % (Auto) Eos % (Auto) Lymph # (Auto) Seg Neutrophils % RBC Morphology Macrocytosis PT INR APTT 93 H 133 H > 200 H* Creatinine Glucose Calcium Phosphorus Total Bilirubin Direct Bilirubin Lactate Dehydrogenase Total Protein Albumin 08/03/19 08/03/19 08/03/19 04:00 04:00 04:00 WBC 4.4 L RBC 2.40 L Hgb 8.0 L Hct 24.1 L MCV 100.4 H RDW Plt Count 120 L MPV 10.9 H Gran % Lymph % (Auto) 14.0 L [place] % (Auto) 16.7 H Eos % (Auto) Lymph # (Auto) 0.62 L Seg Neutrophils % RBC Morphology Macrocytosis PT 18.3 H INR 1.5 H APTT Creatinine 0.5 L Glucose 120 H Calcium 7.5 L Phosphorus 2.6 L Total Bilirubin Direct Bilirubin Lactate Dehydrogenase 271 H Total Protein 5.0 L Albumin 2.5 L 08/02/19 08/02/19 08/02/19 19:00 19:00 19:00 WBC RBC 2.57 L Hgb 8.7 L Hct 25.8 L MCV 100.4 H RDW Plt Count 135 L MPV 11.1 H Gran % 78.2 H Lymph % (Auto) 8.0 L [place] % (Auto) 13.6 H Eos % (Auto) Lymph # (Auto) 0.49 L Seg Neutrophils % RBC Morphology Macrocytosis PT 17.0 H INR 1.3 H APTT 49 H Creatinine Glucose Calcium Phosphorus Total Bilirubin Direct Bilirubin Lactate Dehydrogenase Total Protein Albumin 08/02/19 05:10 WBC RBC Hgb Hct MCV RDW Plt Count MPV Gran % Lymph % (Auto) [place] % (Auto) Eos % (Auto) Lymph # (Auto) Seg Neutrophils % 84 H RBC Morphology Abnorm A Macrocytosis 1+ A PT INR APTT Creatinine Glucose Calcium Phosphorus Total Bilirubin Direct Bilirubin Lactate Dehydrogenase Total Protein Albumin Meds: Medications Acetaminophen (Tylenol) 650 mg PO Q4-6HP PRN; Protocol PRN Reason: Per Pain Protocol/Fever > 101 Hydrocodone Bitart/Acetaminophen ([place] 5/325mg) 1 tab PO Q4HP PRN; Protocol PRN Reason: Severe Pain Amiodarone HCl (Cordarone) 100 mg PO HS [facility] Last Admin: 08/04/19 21:38 Dose: 100 mg Documented by: Atorvastatin Calcium (Lipitor) 40 mg PO DAILY [facility] Last Admin: 08/04/19 08:38 Dose: 40 mg Documented by: Bisacodyl (Dulcolax) 10 mg UT Q2-3DAYS PRN PRN Reason: Constipation Bupropion HCl (Wellbutrin Xl) 150 mg PO DAILY [facility] Last Admin: 08/04/19 08:37 Dose: 150 mg Documented by: Docusate Sodium (Colace) 100 mg PO BID [facility] Last Admin: 08/04/19 21:37 Dose: 100 mg Documented by: Guaifenesin/Codeine Phosphate (Robitussin Ac) 10 ml PO Q4HP PRN PRN Reason: Cough Hydromorphone HCl (Dilaudid) 0 mg IV Q4HP PRN; Protocol PRN Reason: Per Pain Protocol Last Admin: 08/02/19 07:52 Dose: 0.5 mg Documented by: Acetaminophen (Ofirmev) 650 mg in 65 mls @ 130 mls/hr IV Q6HP PRN; Protocol PRN Reason: Per Pain Protocol/Fever > 101 Last Infusion: 08/05/19 00:12 Dose: Infused Documented by: Heparin Sodium/Dextrose 25,000 (unit/ Premix) 500 mls @ 22.099 mls/hr IV .[id number] [facility]; Protocol Last Admin: 08/04/19 09:12 Dose: 4 unit/kg/hr, 6.314 mls/hr Documented by: Iron Carb/Multivit/[place]/Folic Acid (Multivitamin W/Minerals) 1 tab PO DAILY [facility] Last Admin: 08/04/19 08:39 Dose: 1 tab Documented by: Levothyroxine Sodium (Synthroid) 100 mcg PO QAMAC [facility] Last Admin: 08/04/19 08:38 Dose: 100 mcg Documented by: Melatonin (Melatonin 3mg Tablet) 3 mg PO HSP PRN PRN Reason: Insomnia Methocarbamol (Robaxin) 750 mg PO Q6HP PRN PRN Reason: Muscle Spasm Last Admin: 08/04/19 23:42 Dose: 750 mg Documented by: Ondansetron HCl (Zofran Odt) 4 mg SL Q4-6HP PRN; Protocol PRN Reason: Nausea And Vomiting Ondansetron HCl (Zofran) 4 mg IV Q4-6HP PRN; Protocol PRN Reason: Nausea And Vomiting Ubidecarenone [Coq10 (] 50 Mg) 1 dose PO DAILY [facility] Last Admin: 08/04/19 08:42 Dose: Not Given Documented by: Polyethylene Glycol (Miralax) 17 gm PO DAILYP PRN PRN Reason: Constipation Scopolamine (Transderm-Scop) 1 patch TOPICAL PREOP PRN PRN Reason: Nausea And Vomiting Senna/Docusate Sodium (Senna Plus Tablet) 1 tab PO HS [facility] Last Admin: 08/04/19 21:38 Dose: 1 tab Documented by: Sodium Chloride (Saline Flush) 10 ml IV Q8 [facility] Last Admin: 08/05/19 05:55 Dose: 10 ml Documented by: Vitamin B Complex (Vitamin B Complex) 1 cap PO DAILY [facility] Last Admin: 08/04/19 08:37 Dose: 1 cap Documented by: Vitamin D (Vitamin D3) 2,000 unit PO BID [facility] Last Admin: 08/04/19 21:37 Dose: 2,000 unit Documented by: Warfarin Sodium (Coumadin Per Pharmacy) 1 order PO UD [facility] Medical - PN: A/P - Time Spent With Patient Total time spent is greater than 50% in coordination of care (as documented) at patient's floor/unit and/or counseling patient: - Narrative A/P Narrative: A: *Right distal supracondylar femur fracture: s/p ORIF (07/31) *Atrial fibrillation: rate controlled *Mechanical mitral valve: *Anemia, acute: post-op + dilutional component -Hgb 7.6<8.0 s/p 1 prbc (08/03) to 8.6>8.6 *Hypothyroidism: *Anxiety: *h/o CVA: P: -Fracture management / pain control per Dr. Glover, orthopedics -heparin drip with Coumadin bridging, will need to restart ASA as well -monitor H&H one more night given recent hemorrhaging post-op and need for vascular intervention as INR increasing to therapeutic level -Continue home amiodarone -cont aspirin/statin -pt/ot -CM for placement -DVT prophylaxis: heparin- warfarin bridge per pharmacy Medical - PN: Qual - VTE Deep Vein Thrombosis/Pulmonary Embolism Present on Admission: No
[2019-08-05] MEDS: LEVOTHYROXINE 100 MCG TABLET PO SCH (08:19)
[2019-08-05] MEDS: POLYETHYLENE GLYCOL 3350 17 GM PACKET PO PRN (08:20)
[2019-08-05] MEDS: HYDROcodone/APAP 5/325MG TABLET PO PRN ×2 (08:55→20:37)
[2019-08-05] MEDS: MULTIVIT,THER IRON,CA,FA & MIN 1 TABLET PO SCH (09:39)
[2019-08-05] MEDS: VITAMIN B COMPLEX 1 CAPSULE PO SCH (09:39)
[2019-08-05] MEDS: DOCUSATE SODIUM 100 MG CAPSULE PO SCH ×2 (09:40→20:31)
[2019-08-05] MEDS: ATORVASTATIN 20 MG TABLET PO SCH (09:40)
[2019-08-05] MEDS: buPROPion 150 MG TAB.XL.24H PO SCH (09:40)
[2019-08-05] MEDS: ASPIRIN 81 MG TAB.CHEW PO SCH (09:40)
[2019-08-05] MEDS: VITAMIN D3 1,000 UNIT TABLET PO SCH ×2 (09:41→20:31)
[2019-08-05] MEDS: Ubidecarenone [Coq10] 50 MG PO SCH (09:42)
[2019-08-05] MEDS: METHOCARBAMOL 750 MG TABLET PO PRN ×2 (09:53→20:31)
[2019-08-05] MEDS ORDERED: WARFARIN 3 MG TABLET PO ONE (14:00)
--- NOTE | 2019-08-05 16:08 | Orthopedic Progress Note ---
Subjective Patient information: Note initiated : 08/05/19 at 4:06 pm Service Date, if different from initiated Date: [] Patient: Crystal Conley 69 y/o F admitted on 07/31/19 for fell. She is POD #4 s/p ORIF right periprosthetic femur fracture. Overall doing well. Was up in chair today for a bit. Denies dizziness, SOB, CP, N/V, new onset paresthesias. Her pain is managed. Chief Complaint: right leg pain. Principal diagnosis: Right displaced distal femur periprosthetic fx Pertinent ROS: negative except per HPI. Objective Vital signs: Vital Signs Temp Pulse Resp BP BP Pulse Ox 08/05/19 15:55 106/40 08/05/19 15:54 97.9 F 20 91/41 96 08/05/19 11:42 97.9 F 62 20 100/53 98 08/05/19 08:00 97.9 F 54 L 18 123/51 100 08/05/19 04:00 98.0 F 18 125/55 99 08/04/19 23:01 98.8 F 61 12 112/50 94 08/04/19 19:05 99.2 F H 61 16 115/55 98 08/04/19 17:53 62 108/62 Intake and Output 08/05/19 08/05/19 08/05/19 05:59 13:59 21:59 Intake Total 265 350 Output Total 950 450 Balance -685 -450 350 Intake: IV 65 Oral 200 350 Output: Void Amount 950 450 Other: Urine Appearance Clear Clear Urine Color Straw Straw Urine Odor Normal Intake & Output: Intake & Output 08/05/19 08/05/19 08/05/19 05:59 13:59 21:59 Intake Total 265 350 Output Total 950 450 Balance -685 -450 350 Intake: IV 65 Oral 200 350 Output: Void Amount 950 450 Other: Urine Appearance Clear Clear Urine Color Straw Straw Urine Odor Normal Dressing: Yes clean (knee ranger in place.), Yes dry, Yes intact Weight bearing status: non (with RLE.) Neurological exam IM: Yes alert, Yes oriented X3, Yes neurovascular intact Extremities exam IM: No calf tenderness, Yes normal capillary refill, Yes normal inspection, No Ariel's sign, Yes Foot pink and warm, Yes neurovascular intact - Labs CBC & BMP: 08/05/19 04:00 08/05/19 04:00 Labs: Orthopedic Labs 08/05/19 08/05/19 08/04/19 04:00 04:00 04:00 PT 20.0 H INR 1.7 H APTT 70 H 101 H 08/04/19 08/03/19 08/03/19 04:00 23:00 12:59 PT 19.4 H INR 1.6 H APTT 93 H 133 H 08/03/19 08/03/19 08/02/19 04:00 04:00 19:00 PT 18.3 H 17.0 H INR 1.5 H 1.3 H APTT > 200 H* 08/02/19 08/02/19 08/01/19 19:00 05:10 05:35 PT 17.2 H 17.9 H INR 1.4 H 1.4 H APTT 49 H 07/31/19 17:14 PT 30.0 H INR 2.8 H APTT 08/05/19 08/04/19 08/04/19 04:00 16:45 04:00 Hgb 8.6 L 8.6 L 7.6 L Hct 25.5 L 25.6 L 22.6 L 08/03/19 08/02/19 08/02/19 04:00 19:00 05:10 Hgb 8.0 L 8.7 L 9.0 L Hct 24.1 L 25.8 L 26.9 L 08/01/19 08/01/19 07/31/19 19:32 05:35 17:14 Hgb 10.6 L 9.6 L 11.9 Hct 32.1 L 28.7 L 35.5 Assessment and Plan (1) Femur fracture, right Pt is a 69 yo female POD#4 s/p ORIF right periprosthetic femur fracture. --H/H trending upwards today following transfusion. Will recheck tmrw AM. --PT/OT: NWB with RLE with knee ranger in place. --continue pain medications. --continue diet. --prophy: SCDs, Heparin drip with bridge to warfarin per pharmacy pending no further changes to H&H. --dispo: home with home health as pt refused rehab. --f/u with ortho in 2 weeks for staple removal. --may shower with silver dressing in place. Do not submerge. No ointments, lotions, creams to incision. Keep clean and dry. Status: Acute
[2019-08-05] MEDS: HEPARIN/D5W 25,000 UNIT in PREMIX 1 BAG IV SCH ×2 (17:30→19:06)
[2019-08-05] MEDS: 0.9 % SODIUM CHLORIDE 250 ML IV SCH (19:08)
[2019-08-05] MEDS: SENNOSIDES/DOCUSATE SODIUM 1 TAB TABLET PO SCH (20:31)
[2019-08-05] MEDS: AMIODARONE HCL 200 MG TABLET PO SCH (20:32)
[2019-08-06] MEDS: 0.9 % SODIUM CHLORIDE 10 ML SYRINGE IV SCH (04:09)
[2019-08-06 04:55] LABS: Hematocrit 26.5 % (34.1-44.9); Hemoglobin 8.8 g/dL (11.2-15.7)
[2019-08-06 05:03] LABS: INR 1.8 (0.9-1.1)
[2019-08-06] MEDS: HYDROcodone/APAP 5/325MG TABLET PO PRN (06:47)
[2019-08-06] MEDS: LEVOTHYROXINE 100 MCG TABLET PO SCH (06:48)
[2019-08-06] MEDS ORDERED: ENOXAPARIN 60 MG/0.6 ML SYRINGE SQ SCH (09:00)
[2019-08-06] MEDS: DOCUSATE SODIUM 100 MG CAPSULE PO SCH (09:10)
[2019-08-06] MEDS: ASPIRIN 81 MG TAB.CHEW PO SCH (09:10)
[2019-08-06] MEDS: MULTIVIT,THER IRON,CA,FA & MIN 1 TABLET PO SCH (09:11)
[2019-08-06] MEDS: buPROPion 150 MG TAB.XL.24H PO SCH (09:11)
[2019-08-06] MEDS: VITAMIN D3 1,000 UNIT TABLET PO SCH (09:11)
[2019-08-06] MEDS: ATORVASTATIN 20 MG TABLET PO SCH (09:11)
[2019-08-06] MEDS: VITAMIN B COMPLEX 1 CAPSULE PO SCH (09:11)
[2019-08-06] MEDS: Ubidecarenone [Coq10] 50 MG PO SCH (09:14)
[2019-08-06] MEDS: POLYETHYLENE GLYCOL 3350 17 GM PACKET PO PRN (09:52)
== END 2019-08-06 12:14 | disposition home health service (06) | DRG 481 ==
LOC: ED 16:16 → MEDSUR 20:33
PROVIDERS: ADMIT Internal Medicine; ATTEND Internal Medicine

== ENCOUNTER 2022-09-14 10:25 | Inpatient (IN) ==
[2022-09-14] MEDS ORDERED: 0.9 % SODIUM CHLORIDE 500 ML IV ONE (10:35)
--- NOTE | 2022-09-14 10:35 | Emergency Department Note ---
HPI General Chief complaint: Weakness Stated complaint: weakness Time Seen by Provider: 09/14/22 10:35 Source: patient Mode of arrival: ambulatory Limitations: no limitations History of Present Illness HPI Narrative: Narrative: Patient is a 72-year-old female with a complex history who presents to the emergency department due to nausea, urinary urgency, generalized weakness, and some lightheadedness. She states that the symptoms have been present for multiple days. She states that it has become more severe, and this is why she decided to come to the emergency department. She states that the urinary urgency is similar to what she gets with UTIs, and states that she has had frequent UTIs in the past. She denies any other symptoms at this time. Related Data Home Medications Medication Instructions Recorded Confirmed cholecalciferol (vitamin D3) 2,000 units PO DAILY 10/27/18 09/14/22 vitamin B complex [B Complex Super] 1 each PO DAILY 10/27/18 09/14/22 aspirin 81 mg tablet,delayed 81 mg PO BID 10/27/21 09/14/22 release furosemide 20 mg tablet 20 mg PO QDAY 10/27/21 09/14/22 hydrocodone 7.5 mg-acetaminophen 1 - 2 tab PO Q8H PRN pain 10/27/21 09/14/22 325 mg tablet spironolactone 25 mg tablet 25 mg PO QDAY 10/27/21 09/14/22 atorvastatin 40 mg tablet 40 mg PO QHS 12/28/21 09/14/22 amiodarone 200 mg tablet 200 mg PO HS 09/14/22 09/14/22 Previous Rx's Medication Instructions Recorded alendronate 70 mg tablet (Fosamax) 70 mg PO QWEEK #30 tabs 05/27/22 bupropion HCl 300 mg 24 hr tablet, 300 mg PO QAM #90 tabs 07/09/22 extended release (Wellbutrin XL) thyroid (pork) 60 mg tablet (GROUND EQUIPMENT MECHANIC 60 mg PO QDAY #90 tabs 07/09/22 Thyroid) warfarin 1 mg tablet See Rx Instructions PO .COMPLEX 09/06/22 #120 tabs Allergies Allergy/AdvReac Type Severity Reaction Status Date / Time codeine AdvReac Mild Nausea Verified 09/14/22 10:30 metoprolol AdvReac Mild Hypotension Verified 09/14/22 10:30 propranolol AdvReac Unknown Hypotension Verified 09/14/22 10:30 Review of Systems ROS ROS Narrative: Narrative: Constitutional: Reports weakness (Generalized); Denies fever Eyes: Denies eye pain or vision change ENT ED: Denies throat pain, hearing loss or rhinorrhea Cardiovascular: Denies chest pain, dyspnea on exertion, orthopnea or edema Respiratory: Denies shortness of breath or cough Gastrointestinal: Reports nausea; Denies abdominal pain, vomiting, diarrhea, constipation, hematochezia or melena Genitourinary: Reports urgency; Denies dysuria or frequency Musculoskeletal: Denies back pain or myalgia Integumentary: Denies rash or lesions Neurological: Reports weakness (Generalized); Denies headache, numbness, confusion, abnormal gait or dizziness [facility] Narrative Patient History Narrative: Narrative: Medical/Surgical/Family History All Active Problems (Updated 09/15/22 @ 09:08 by Cameron Corrigan MD) UTI (urinary tract infection) (Acute) CHF exacerbation (Acute) Macrocytosis (Acute) Generalized weakness (Acute) Pain of left mastoid (Acute) Age related osteoporosis (Acute) Medicare annual wellness visit, subsequent (Acute) Bradycardia (Acute) Tremor (Chronic) Nausea & vomiting (Chronic) Fall (Chronic) Weakness (Chronic) Light-headedness (Chronic) Atrial fibrillation with rapid ventricular response (Chronic) Femur fracture, right (Chronic) Anemia (Chronic) TIA (transient ischemic attack) (Chronic) INR (international normal ratio) abnormal (Chronic) Elevated hemidiaphragm (Chronic) Pulmonary hypertension (Chronic) Hiatal hernia (Chronic) Abnormal finding on CT scan (Chronic) Atrial fibrillation (Chronic) Essential and other specified forms of tremor (Chronic) Joint pain (Chronic) Easy bruising (Chronic) Vertigo (Chronic) Dizziness (Chronic) Major depressive disorder (Chronic) Osteoarthritis of right knee (Chronic) Osteoarthritis of neck (Chronic) Osteopenia (Chronic) Hypothyroidism (Chronic) CKD (chronic kidney disease), stage III (Chronic) Peripheral edema (Chronic) Hx of prosthetic mitral valve (Chronic) Fatigue (Chronic) Mitral valve disorder (Chronic) CHF (congestive heart failure) (Chronic) UTI (urinary tract infection) (Chronic) Other cervical disc degeneration at C4-C5 level (Chronic) Chest pain (Chronic) Medical History (Updated 09/15/22 @ 09:08 by Cameron Corrigan MD) A-fib Abnormal finding on CT scan Anemia Atrial fibrillation Atrial fibrillation with rapid ventricular response Chest pain CHF (congestive heart failure) CKD (chronic kidney disease), stage III Dizziness Easy bruising Elevated hemidiaphragm right Essential and other specified forms of tremor Fall Fatigue Femur fracture, right Hiatal hernia Hypothyroidism INR (international normal ratio) abnormal Difficult to keep in range 2.5/3.5 Joint pain Light-headedness Macrocytosis Major depressive disorder Medicare annual wellness visit, subsequent Mitral valve disorder Nausea & vomiting Osteoarthritis of neck Osteoarthritis of right knee Osteopenia Other cervical disc degeneration at C4-C5 level Peripheral edema Pulmonary hypertension TIA (transient ischemic attack) Tremor UTI (urinary tract infection) Vertigo Weakness Surgical History H/O mitral valve replacement 06/2012; 07/2012 History of cardiac catheterization History of cardioversion History of knee replacement (~2018) History of surgery (~1974) Gallbladder History of surgery (~2019) Broken femure History of tubal ligation x2 1972, 1973 Hx of prosthetic mitral valve Family History Sister A-fib Tremor Breast cancer Father Cancer Diabetes Lung cancer Mother Cancer Brother Pacemaker Social History Smoking Status: Never smoker Alcohol Intake Frequency: a few times a week Substance Use: does not use Exam Narrative Narrative: Narrative: General Limitations: no limitations General appearance: Present alert and in no apparent distress; Absent anxious, appears intoxicated or sleepy Head Head: Present atraumatic and normocephalic Eye Eye: Present EOMI; Absent scleral icterus or nystagmus ENT ENT: Present mucous membranes moist; Absent nasal congestion Neck Neck: Present full ROM and trachea midline Chest Chest: Present normal inspection and symmetric chest wall rise Respiratory Respiratory: Present normal lung sounds bilaterally; Absent respiratory distress, rales/crackles, wheezes, stridor or accessory muscle use Cardiovascular Cardiovascular: Present regular rate, normal rhythm and normal heart sounds Adbominal Abdominal: Present soft and normal bowel sounds; Absent distention, tenderness, guarding, rebound or rigidity Extremities Extremities: Present normal inspection, full ROM, pedal edema and pretibial edema Back Back: Present normal inspection and full ROM Neurological Neurological: Present alert and oriented X3 Psychiatric Psychiatric: Present normal affect and normal mood Skin Skin: Present warm (WNL), dry and normal color Course Vital Signs Vital signs: Vital Signs Temperature 97.2 F 09/14/22 10:28 Pulse Rate 72 09/14/22 10:28 Respiratory Rate 16 09/14/22 10:28 Blood Pressure 78/39 09/14/22 10:28 Pulse Oximetry (%) 94 09/14/22 10:28 Oxygen Delivery Method Room Air 09/14/22 10:28 Temperature 97.7 F 09/15/22 04:00 Pulse Rate 64 09/15/22 08:48 Respiratory Rate 21 09/15/22 08:48 Blood Pressure 114/81 09/15/22 08:45 Pulse Oximetry (%) 100 09/15/22 08:48 Oxygen Delivery Method Room Air 09/15/22 07:01 MDM MDM Narrative Medical decision making narrative: Narrative: Patient is a 72-year-old female who presents to the emergency department due to nausea, urinary urgency, and generalized weakness. Differential diagnoses include UTI/urosepsis, heart failure exacerbation, pancreatitis, gastroente ritis. Upon arrival patient did have low blood pressure, so was given fluids. Unfortunately patient did become tachypneic with fluids, so these were slowed. Patient continued to have hypotension, so Levophed was started. Patient has labs consistent with heart failure exacerbation, although imaging does not demonstrate findings consistent with a significant heart failure exacerbation, so this is not likely the cause of her hypotension. She does have findings consistent with a UTI. She has received antibiotics. I have spoken to Dr. Weiss, and he has agreed to see and evaluate patient for admission. Lab Data 09/15/22 05:28 09/15/22 05:28 Labs: Lab Results 09/14/22 09/14/22 09/14/22 Range/Units 10:47 10:50 10:59 WBC 8.2 (4.5-11.0) K/mcL RBC 3.74 (3.59-5.38) M/mcL Hgb 12.8 (11.2-15.7) g/dL Hct 38.2 (34.1-44.9) % POC Hct 37.0 (36-48) MCV 102.1 H (80.0-100.0) fL MCH 34.2 H (26.0-34.0) pg MCHC 33.5 (31.0-36.0) g/dL RDW 13.2 (11.5-14.5) % Plt Count 102 L (140-440) K/mcL MPV 10.3 (8.8-12.5) fL Immature Gran % (Auto) 0.5 (0.0-0.5) % Neut % (Auto) 93.4 H (38.0-78.0) % Lymph % (Auto) 2.4 L (15.5-49.0) % [place] % (Auto) 3.3 (1.0-12.0) % Eos % (Auto) 0.2 (0.0-7.0) % Baso % (Auto) 0.2 (0.0-2.0) % Lymph # (Auto) 0.20 L (1.50-4.80) K/mcL [place] # (Auto) 0.27 (0.10-0.90) K/mcL Eos # (Auto) 0.02 (0.00-0.70) K/mcL Baso # (Auto) 0.02 (0.00-0.30) K/mcL Seg Neutrophils % (38-78) % Band Neutrophils % (0-10) % Lymphocytes % (15-49) % Monocytes % (Manual) (1-12) % Immature Gran # 0.04 (0.00-0.05) K/mcl Absolute Neutrophils 7.62 (1.80-8.00) K/mcL Platelet Estimate (Normal) RBC Morphology (Normal) Macrocytosis (None Seen) PT (11.9-14.5) sec INR (0.9-1.1) POC Sodium 138 (133-145) POC Potassium 3.6 (3.3-5.1) POC Chloride 104 (96-108) POC Total CO2 19.0 L (22-30) POC Anion Gap 19.0 H (8.0-16.0) POC BUN 21 H (6-20) POC Creatinine 1.4 H (0.6-1.2) POC Glucose 110 H (70-105) POC WB Ioniz Calcium 1.08 L (1.16-1.32) Total Bilirubin (0.1-1.0) mg/dL Direct Bilirubin (<0.3) mg/dL AST (<32) U/L ALT (<40) U/L Alkaline Phosphatase (39-117) U/L NT-Pro-B Natriuret Pep 2663.0 H (<125.0) pg/mL Total Protein (5.9-8.4) gm/dL Albumin (3.2-5.2) gm/dL Globulin (2.2-3.7) gm/dL Procalcitonin (<0.10) ng/mL Urine Color Urine Appearance (Clear) Urine pH (5.0-9.0) Ur Specific [place] (1.000-1.035) Urine Protein (Negative) mg/dL Urine Glucose (UA) (Negative) mg/dL Urine Ketones (Negative) mg/dL Urine Occult Blood (Negative) mg/dL Urine Nitrate (Negative) Urine Bilirubin (Negative) mg/dL Urine Urobilinogen mg/dL Ur Leukocyte Esterase (Negative) /uL Urine RBC (0-3) /hpf Urine WBC (0-4) /hpf Ur Squamous Epith Cells (0-4) /hpf Ur Transition Epith Cell (0-2) /hpf Urine Bacteria (0) /hpf Granular Casts (0-0) /lph Urine Mucus (None) /hpf Ur Culture Indicated? 09/14/22 09/14/22 09/14/22 Range/Units 10:59 10:59 10:59 WBC (4.5-11.0) K/mcL RBC (3.59-5.38) M/mcL Hgb (11.2-15.7) g/dL Hct (34.1-44.9) % POC Hct (36-48) MCV (80.0-100.0) fL MCH (26.0-34.0) pg MCHC (31.0-36.0) g/dL RDW (11.5-14.5) % Plt Count (140-440) K/mcL MPV (8.8-12.5) fL Immature Gran % (Auto) (0.0-0.5) % Neut % (Auto) (38.0-78.0) % Lymph % (Auto) (15.5-49.0) % [place] % (Auto) (1.0-12.0) % Eos % (Auto) (0.0-7.0) % Baso % (Auto) (0.0-2.0) % Lymph # (Auto) (1.50-4.80) K/mcL [place] # (Auto) (0.10-0.90) K/mcL Eos # (Auto) (0.00-0.70) K/mcL Baso # (Auto) (0.00-0.30) K/mcL Seg Neutrophils % 85 H (38-78) % Band Neutrophils % 8 (0-10) % Lymphocytes % 5 L (15-49) % Monocytes % (Manual) 2 (1-12) % Immature Gran # (0.00-0.05) K/mcl Absolute Neutrophils (1.80-8.00) K/mcL Platelet Estimate Decreased A (Normal) RBC Morphology Abnormal A (Normal) Macrocytosis 1+ A (None Seen) PT 30.1 H (11.9-14.5) sec INR 2.7 H (0.9-1.1) POC Sodium (133-145) POC Potassium (3.3-5.1) POC Chloride (96-108) POC Total CO2 (22-30) POC Anion Gap (8.0-16.0) POC BUN (6-20) POC Creatinine (0.6-1.2) POC Glucose (70-105) POC WB Ioniz Calcium (1.16-1.32) Total Bilirubin (0.1-1.0) mg/dL Direct Bilirubin (<0.3) mg/dL AST (<32) U/L ALT (<40) U/L Alkaline Phosphatase (39-117) U/L NT-Pro-B Natriuret Pep (<125.0) pg/mL Total Protein (5.9-8.4) gm/dL Albumin (3.2-5.2) gm/dL Globulin (2.2-3.7) gm/dL Procalcitonin 4.94 H (<0.10) ng/mL Urine Color Urine Appearance (Clear) Urine pH (5.0-9.0) Ur Specific [place] (1.000-1.035) Urine Protein (Negative) mg/dL Urine Glucose (UA) (Negative) mg/dL Urine Ketones (Negative) mg/dL Urine Occult Blood (Negative) mg/dL Urine Nitrate (Negative) Urine Bilirubin (Negative) mg/dL Urine Urobilinogen mg/dL Ur Leukocyte Esterase (Negative) /uL Urine RBC (0-3) /hpf Urine WBC (0-4) /hpf Ur Squamous Epith Cells (0-4) /hpf Ur Transition Epith Cell (0-2) /hpf Urine Bacteria (0) /hpf Granular Casts (0-0) /lph Urine Mucus (None) /hpf Ur Culture Indicated? 09/14/22 09/14/22 Range/Units 10:59 13:55 WBC (4.5-11.0) K/mcL RBC (3.59-5.38) M/mcL Hgb (11.2-15.7) g/dL Hct (34.1-44.9) % POC Hct (36-48) MCV (80.0-100.0) fL MCH (26.0-34.0) pg MCHC (31.0-36.0) g/dL RDW (11.5-14.5) % Plt Count (140-440) K/mcL MPV (8.8-12.5) fL Immature Gran % (Auto) (0.0-0.5) % Neut % (Auto) (38.0-78.0) % Lymph % (Auto) (15.5-49.0) % [place] % (Auto) (1.0-12.0) % Eos % (Auto) (0.0-7.0) % Baso % (Auto) (0.0-2.0) % Lymph # (Auto) (1.50-4.80) K/mcL [place] # (Auto) (0.10-0.90) K/mcL Eos # (Auto) (0.00-0.70) K/mcL Baso # (Auto) (0.00-0.30) K/mcL Seg Neutrophils % (38-78) % Band Neutrophils % (0-10) % Lymphocytes % (15-49) % Monocytes % (Manual) (1-12) % Immature Gran # (0.00-0.05) K/mcl Absolute Neutrophils (1.80-8.00) K/mcL Platelet Estimate (Normal) RBC Morphology (Normal) Macrocytosis (None Seen) PT (11.9-14.5) sec INR (0.9-1.1) POC Sodium (133-145) POC Potassium (3.3-5.1) POC Chloride (96-108) POC Total CO2 (22-30) POC Anion Gap (8.0-16.0) POC BUN (6-20) POC Creatinine (0.6-1.2) POC Glucose (70-105) POC WB Ioniz Calcium (1.16-1.32) Total Bilirubin 2.2 H (0.1-1.0) mg/dL Direct Bilirubin 0.8 H (<0.3) mg/dL AST 44 H (<32) U/L ALT 17 (<40) U/L Alkaline Phosphatase 134 H (39-117) U/L NT-Pro-B Natriuret Pep (<125.0) pg/mL Total Protein 5.5 L (5.9-8.4) gm/dL Albumin 3.2 (3.2-5.2) gm/dL Globulin 2.3 (2.2-3.7) gm/dL Procalcitonin (<0.10) ng/mL Urine Color [place] Urine Appearance Cloudy A (Clear) Urine pH 5.0 (5.0-9.0) Ur Specific [place] 1.017 (1.000-1.035) Urine Protein 100 A (Negative) mg/dL Urine Glucose (UA) Negative (Negative) mg/dL Urine Ketones Negative (Negative) mg/dL Urine Occult Blood 0.20 (Negative) mg/dL Urine Nitrate Negative (Negative) Urine Bilirubin Negative (Negative) mg/dL Urine Urobilinogen 4.0 A mg/dL Ur Leukocyte Esterase 250 A (Negative) /uL Urine RBC 56 H (0-3) /hpf Urine WBC > 182 H (0-4) /hpf Ur Squamous Epith Cells 5 H (0-4) /hpf Ur Transition Epith Cell 1 (0-2) /hpf Urine Bacteria Few A (0) /hpf Granular Casts 19 H (0-0) /lph Urine Mucus Mod A (None) /hpf Ur Culture Indicated? No Discharge Plan Patient/Caregiver Discharge Instructions Pt seen by GROUND EQU[employer]MENT MECHANIC/PA only: No Clinical Impression: UTI (urinary tract infection), CHF exacerbation Patient Disposition: Xfer As Inpt ([facility]) Discharge Date/Time: 09/14/22 17:00
[2022-09-14 10:51] LABS: POC Calcium, Ionized 1.08 (1.16-1.32); POC Creatinine 1.4 (0.6-1.2); POC Potassium 3.6 (3.3-5.1)
[2022-09-14] MEDS ORDERED: NOREPINEPHRINE BITARTRATE 16 MG in 0.9 % SODIUM CHLORIDE 234 ML IV ONE (11:21)
[2022-09-14] MEDS ORDERED: 0.9 % SODIUM CHLORIDE 250 ML IV SCH (11:30)
[2022-09-14 11:39] LABS: Basophils # (Auto) 0.02 K/mcL (0.00-0.30); Basophils % (Auto) 0.2 % (0.0-2.0); Eosinophils # (Auto) 0.02 K/mcL (0.00-0.70); Eosinophils % (Auto) 0.2 % (0.0-7.0); Hematocrit 38.2 % (34.1-44.9); Hemoglobin 12.8 g/dL (11.2-15.7); Lymphocytes % (Auto) 2.4 % (15.5-49.0); Mean Cell Volume 102.1 fL (80.0-100.0); Mean Corpuscular HGB Conc 33.5 g/dL (31.0-36.0); Mean Platelet Volume 10.3 fL (8.8-12.5); Monocytes # (Auto) 0.27 K/mcL (0.10-0.90); Monocytes % (Auto) 3.3 % (1.0-12.0); Neutrophils % (Auto) 93.4 % (38.0-78.0); Platelet Count 102 K/mcL (140-440); RBC 3.74 M/mcL (3.59-5.38); Red Cell Distribution Width 13.2 % (11.5-14.5); WBC 8.2 K/mcL (4.5-11.0)
--- NOTE | 2022-09-14 12:41 | XRay Report ---
CLINICAL INFORMATION: Tachypnea COMPARISON: 08/05/2022 FINDINGS: Moderate cardiomegaly is unchanged. Mitral valve annuloplasty changes again noted. Sternotomy seen. The pulmonary arteries are distended particularly centrally where they are moderately enlarged. Lungs are clear. No effusions. IMPRESSION: Mild congestive heart failure. Interpreted and Authenticated by: Sylvester Huff 09/14/22
[2022-09-14] MEDS ORDERED: cefTRIAXone 2 GM VIAL IM ONE (13:28)
[2022-09-14] MEDS ORDERED: cefTRIAXone 2 GM in DEXTROSE 5% IN WATER 50 ML IV ONE (13:40)
--- NOTE | 2022-09-14 14:25 | Internal Med History&Physical ---
HPI History of Present Illness Patient information: Note initiated : 09/14/22 at 2:23 pm Service Date, if different from initiated Date: [] Patient: Crystal Conley a 72 y/o F admitted on for weakness. Chief Complaint: [] History of present illness: Ms. Conley is a 72 year old F Presents to ED with generalized weakness and lethargy. As well as body aches chills some nausea and urinary urgency. She also complains of some lightheadedness and symptoms have been occurring for several days. she denies fevers but complains of headache and body aches as well. dip in the ED was consistent with infection. Urinalysis pending. she was hypotensive in the ED and requiring Levophed despite IV fluids. Chest x-ray was concerning for some mild interstitial fluid. last echo done in 12/2021 showed a good EF and no diastolic dysfunction. laboratory showed a mild elevation of BUN/creatinine ratio elevated procalcitonin of 4.9. WBCs were within normal limits but manual differential is pending. review of Systems: Pertinent positives as above. denies fever/vomiting/chest or abdominal pain/cough/dyspnea/diarrhea. Remaining 10 point review of system reviewed negative PHYSICAL EXAM General: Alert, Awake, No acute Distress Eyes/N/T: EOMI, no scleral icterus, PERRL, Head/Neck: neck supple, full ROM, normocephalic atraumatic CV: RRR, 3/6SM, normal s1/s2 Pulm: Clear b/l, no wheezing/rhonchi/rales, no respiratory distress Abd: soft, nontender, +BS x4 Ext: no clubbing/cyanosis, trace-mild b/l LE edema, nontender Neuro: Alert, CN 2-12 grossly intact, no focal deficits, moves all extremities, , sensations intact b/l upper/lower Psychiatric: Skin: warm/dry, normal color PFSH PFSH All Active Problems (Updated 08/13/22 @ 14:38 by Yair Justice MD) Macrocytosis (Acute) Generalized weakness (Acute) Pain of left mastoid (Acute) Age related osteoporosis (Acute) Medicare annual wellness visit, subsequent (Acute) Bradycardia (Acute) Tremor (Chronic) Nausea & vomiting (Chronic) Fall (Chronic) Weakness (Chronic) Light-headedness (Chronic) Atrial fibrillation with rapid ventricular response (Chronic) Femur fracture, right (Chronic) Anemia (Chronic) TIA (transient ischemic attack) (Chronic) INR (international normal ratio) abnormal (Chronic) Elevated hemidiaphragm (Chronic) Pulmonary hypertension (Chronic) Hiatal hernia (Chronic) Abnormal finding on CT scan (Chronic) Atrial fibrillation (Chronic) Essential and other specified forms of tremor (Chronic) Joint pain (Chronic) Easy bruising (Chronic) Vertigo (Chronic) Dizziness (Chronic) Major depressive disorder (Chronic) Osteoarthritis of right knee (Chronic) Osteoarthritis of neck (Chronic) Osteopenia (Chronic) Hypothyroidism (Chronic) CKD (chronic kidney disease), stage III (Chronic) Peripheral edema (Chronic) Hx of prosthetic mitral valve (Chronic) Fatigue (Chronic) Mitral valve disorder (Chronic) CHF (congestive heart failure) (Chronic) UTI (urinary tract infection) (Chronic) Other cervical disc degeneration at C4-C5 level (Chronic) Chest pain (Chronic) Medical History (Updated 08/13/22 @ 14:38 by Yari Justice MD) A-fib Abnormal finding on CT scan Anemia Atrial fibrillation Atrial fibrillation with rapid ventricular response Chest pain CHF (congestive heart failure) CKD (chronic kidney disease), stage III Dizziness Easy bruising Elevated hemidiaphragm right Essential and other specified forms of tremor Fall Fatigue Femur fracture, right Hiatal hernia Hypothyroidism INR (international normal ratio) abnormal Difficult to keep in range 2.5/3.5 Joint pain Light-headedness Macrocytosis Major depressive disorder Medicare annual wellness visit, subsequent Mitral valve disorder Nausea & vomiting Osteoarthritis of neck Osteoarthritis of right knee Osteopenia Other cervical disc degeneration at C4-C5 level Peripheral edema Pulmonary hypertension TIA (transient ischemic attack) Tremor UTI (urinary tract infection) Vertigo Weakness Surgical History H/O mitral valve replacement 06/2012; 07/2012 History of cardiac catheterization History of cardioversion History of knee replacement (~2018) History of surgery (~1974) Gallbladder History of surgery (~2019) Broken femure History of tubal ligation x2 1972, 1973 Hx of prosthetic mitral valve Family History Sister A-fib Tremor Breast cancer Father Cancer Diabetes Lung cancer Mother Cancer Brother Pacemaker Social History marital status: occupational status: retired physical activity: walking smoking status: Never smoker smoking status stop date: 11/02/78 alcohol intake frequency: a few times a week substance use type: does not use MEDS/ALLERGIES Home Medications and Allergies Home Medications Medication Instructions Recorded Confirmed Type cholecalciferol (vitamin D3) 2,000 units PO DAILY 10/27/18 09/14/22 History vitamin B complex [B Complex Super] 1 each PO DAILY 10/27/18 09/14/22 History aspirin 81 mg tablet,delayed 81 mg PO BID 10/27/21 09/14/22 History release furosemide 20 mg tablet 20 mg PO QDAY 10/27/21 09/14/22 History hydrocodone 7.5 mg-acetaminophen 1 - 2 tab PO Q8H PRN pain 10/27/21 09/14/22 History 325 mg tablet spironolactone 25 mg tablet 25 mg PO QDAY 10/27/21 09/14/22 History atorvastatin 40 mg tablet 40 mg PO QHS 12/28/21 09/14/22 History alendronate 70 mg tablet (Fosamax) 70 mg PO QWEEK #30 tabs 05/27/22 09/14/22 Rx bupropion HCl 300 mg 24 hr tablet, 300 mg PO QAM #90 tabs 07/09/22 09/14/22 Rx extended release (Wellbutrin XL) thyroid (pork) 60 mg tablet (VACUUM WORKER 60 mg PO QDAY #90 tabs 07/09/22 09/14/22 Rx Thyroid) warfarin 1 mg tablet See Rx Instructions PO .COMPLEX 09/06/22 09/14/22 Rx #120 tabs amiodarone 200 mg tablet 200 mg PO HS 09/14/22 09/14/22 History Allergies Allergy/AdvReac Type Severity Reaction Status Date / Time codeine AdvReac Mild Nausea Verified 09/14/22 10:30 metoprolol AdvReac Mild Hypotension Verified 09/14/22 10:30 propranolol AdvReac Unknown Hypotension Verified 09/14/22 10:30 EXAM Constitutional Vitals: Temp Pulse Resp BP Pulse Ox O2 Del Method 97.2 F 67 21 119/48 99 Room Air 09/14/22 10:28 09/14/22 14:22 09/14/22 14:22 09/14/22 14:16 09/14/22 14:22 09/14/22 10:28 DATA Data Completed and Pending Labs: Labs from last 24 hours 09/14/22 09/14/22 09/14/22 10:59 10:59 10:50 WBC 8.2 RBC 3.74 Hgb 12.8 Hct 38.2 POC Hct MCV 102.1 H MCH 34.2 H MCHC 33.5 RDW 13.2 Plt Count 102 L MPV 10.3 Immature Gran % (Auto) 0.5 Neut % (Auto) 93.4 H Lymph % (Auto) 2.4 L Payne % (Auto) 3.3 Eos % (Auto) 0.2 Baso % (Auto) 0.2 Lymph # (Auto) 0.20 L Payne # (Auto) 0.27 Eos # (Auto) 0.02 Baso # (Auto) 0.02 Immature Gran # 0.04 Absolute Neutrophils 7.62 POC Sodium POC Potassium POC Chloride POC Total CO2 POC Anion Gap POC BUN POC Creatinine POC Glucose POC WB Ioniz Calcium NT-Pro-B Natriuret Pep 2663.0 H Procalcitonin 4.94 H 09/14/22 10:47 WBC RBC Hgb Hct POC Hct 37.0 MCV MCH MCHC RDW Plt Count MPV Immature Gran % (Auto) Neut % (Auto) Lymph % (Auto) Payne % (Auto) Eos % (Auto) Baso % (Auto) Lymph # (Auto) Payne # (Auto) Eos # (Auto) Baso # (Auto) Immature Gran # Absolute Neutrophils POC Sodium 138 POC Potassium 3.6 POC Chloride 104 POC Total CO2 19.0 L POC Anion Gap 19.0 H POC BUN 21 H POC Creatinine 1.4 H POC Glucose 110 H POC WB Ioniz Calcium 1.08 L NT-Pro-B Natriuret Pep Procalcitonin A/P Narrative A/P Narrative: A: *UTI Complicated: *Septic shock: 2/2 above *Generalized weakness/Lethargy: 2/2 above *Chronic A-fib: On warfarin and amiodarone *Mechanical mitral valve: On warfarin *CKD III: *h/o CVA: on asa/statin *Hypothyroidism: *Depression/anxiety: * P: -IV Abx, Pending UC/BC -gentle IVF and Levophed, when as able -continue amiodarone -monitor renal function/UOP/fluid balance closely -follow-up manual differential and chemistry -f/u pct -restart Lasix/Aldactone once off pressors -continue aspirin/statin -continue psych meds -Home medication reconciliation -CM for placement -pt/ot -ppx: warfarin per pharmacy DNR Time Spent With Patient Time: Total time spent is greater than 50% in coordination of care (as documented) at patient's floor/unit and/or counseling patient: Critical Care Time: Yes Total Critical Care Time: 70
[2022-09-14 14:52] LABS: Appearance,Urine CLOUDY (Clear); Bacteria,Urine FEW /hpf (0); Bilirubin,Urine Negative (Negative); Color,Urine AMBER; Culture Indicated,Urine No; Glucose,Urine (UA) Negative (Negative); Ketones,Urine Negative (Negative); Leukocyte Esterase,Urine 250 /uL (Negative); Mucus,Urine MOD /hpf; Nitrate,Urine Negative (Negative); Protein,Urine 100 mg/dL (Negative); Specific Gravity,Urine 1.017 (1.000-1.035); Urine Granular Cast 19 /lph (0-0); Urine RBC 56 /hpf (0-3); Urine Squamous Epithelial Cell 5 /hpf (0-4); Urine Transitional Epi Cells 1 /hpf (0-2); Urine WBC > 182 /hpf (0-4)
[2022-09-14 14:52] LABS: INR 2.7 (0.9-1.1); Prothrombin Time 30.1 sec (11.9-14.5)
[2022-09-14 15:16] LABS: Band Neutrophils % 8 % (0-10); Lymphocytes % 5 % (15-49); Macrocytosis 1+ (None Seen); Monocytes % (Manual) 2 % (1-12); Platelet Estimate DECREASED (Normal); RBC Morphology ABNORMAL (Normal); Segmented Neutrophils % 85 % (38-78)
[2022-09-14 15:28] LABS: ALT/SGPT 17 U/L (<40); AST/SGOT 44 U/L (<32); Albumin 3.2 gm/dL (3.2-5.2); Alkaline Phosphatase 134 U/L (39-117); Bilirubin,Direct 0.8 mg/dL (<0.3); Bilirubin,Total 2.2 mg/dL (0.1-1.0); Globulin 2.3 gm/dL (2.2-3.7)
[2022-09-14] MEDS ORDERED: KETOROLAC 30 MG/ML VIAL IV ONE (16:22)
[2022-09-14] MEDS ORDERED: POTASSIUM CHLORIDE 20 MEQ TABLET PO PRN ×2 (17:15)
[2022-09-14] MEDS ORDERED: ONDANSETRON 4 MG/2 ML VIAL IV PRN (17:15)
[2022-09-14] MEDS ORDERED: POLYETHYLENE GLYCOL 3350 17 GM PACKET PO PRN (17:15)
[2022-09-14] MEDS ORDERED: POTASSIUM CHLORIDE 40 MEQ in DEXTROSE 5% IN WATER 500 ML IV PRN (17:15)
[2022-09-14] MEDS ORDERED: IPRATROPIUM/ALBUTEROL 3 ML AMPUL.NEB NEB PRN (17:15)
[2022-09-14] MEDS ORDERED: METOPROLOL TARTRATE 5 MG/5 ML VIAL IV PRN (17:15)
[2022-09-14] MEDS ORDERED: SENNOSIDES 1 TABLET PO PRN (17:15)
[2022-09-14] MEDS ORDERED: MAGNESIUM SULFATE 2 GM/50 ML BAG IV PRN (17:15)
[2022-09-14] MEDS: NOREPINEPHRINE BITARTRATE 8 MG in 0.9 % SODIUM CHLORIDE 242 ML IV SCH (18:54)
[2022-09-14] MEDS: 0.9 % SODIUM CHLORIDE 250 ML IV SCH (18:54)
[2022-09-14] MEDS: DOCUSATE SODIUM 100 MG CAPSULE PO SCH (18:59)
[2022-09-14] MEDS: 0.9 % SODIUM CHLORIDE 10 ML SYRINGE IV SCH ×2 (18:59→21:26)
[2022-09-14] MEDS ORDERED: WARFARIN 1 MG TABLET PO ONE (19:00)
[2022-09-14] MEDS ORDERED: HYDROcodone/APAP (PP) 7.5/325MG TABLET (#4) PO PRN (19:11)
[2022-09-14] MEDS ORDERED: AMIODARONE HCL 200 MG TABLET PO ONE (20:00)
[2022-09-14] MEDS: AMIODARONE HCL 200 MG TABLET PO SCH (20:49)
[2022-09-14] MEDS ORDERED: ATORVASTATIN 40 MG TABLET PO SCH ×2 (21:00)
[2022-09-14] MEDS: HYDROCODONE/APAP 7.5/325MG TABLET PO PRN (21:36)
[2022-09-15] MEDS: 0.9 % SODIUM CHLORIDE 10 ML SYRINGE IV SCH ×3 (05:30→21:05)
[2022-09-15] MEDS: 0.9 % SODIUM CHLORIDE 250 ML IV SCH ×4 (06:25→20:12)
[2022-09-15 06:57] LABS: Basophils # (Auto) 0.06 K/mcL (0.00-0.30); Basophils % (Auto) 0.5 % (0.0-2.0); Eosinophils # (Auto) 0.12 K/mcL (0.00-0.70); Eosinophils % (Auto) 0.9 % (0.0-7.0); Hematocrit 36.8 % (34.1-44.9); Lymphocytes # (Auto) 0.62 K/mcL (1.50-4.80); Lymphocytes % (Auto) 4.8 % (15.5-49.0); Mean Cell Volume 103.1 fL (80.0-100.0); Mean Corpuscular HGB Conc 32.6 g/dL (31.0-36.0); Mean Platelet Volume 10.4 fL (8.8-12.5); Monocytes # (Auto) 1.75 K/mcL (0.10-0.90); Monocytes % (Auto) 13.5 % (1.0-12.0); Neutrophils % (Auto) 79.8 % (38.0-78.0); Platelet Count 119 K/mcL (140-440); RBC 3.57 M/mcL (3.59-5.38); Red Cell Distribution Width 13.7 % (11.5-14.5)
[2022-09-15 07:05] LABS: Prothrombin Time 31.9 sec (11.9-14.5)
[2022-09-15 07:38] LABS: ALT/SGPT 18 U/L (<40); AST/SGOT 40 U/L (<32); Albumin 2.7 gm/dL (3.2-5.2); Alkaline Phosphatase 109 U/L (39-117); Bilirubin,Direct 0.9 mg/dL (<0.3); Bilirubin,Total 2.3 mg/dL (0.1-1.0); Blood Urea Nitrogen 27 mg/dL (8-23); Calcium 7.8 mg/dL (8.6-10.4); Carbon Dioxide 18 mmol/L (22-30); Chloride 105 mmol/L (96-108); Globulin 2.8 gm/dL (2.2-3.7); Glomerular Filtration Rate 41; Glucose 90 mg/dL (70-105); Lactate Dehydrogenase 342 U/L (135-225); Phosphorous 2.9 mg/dL (2.5-4.5); Triglycerides 63 mg/dL (<150); Uric Acid 4.7 mg/dL (2.5-8.0)
[2022-09-15] MEDS ORDERED: ALBUMIN HUMAN 12.5 GM/50 ML VIAL IV ONE (08:00)
--- NOTE | 2022-09-15 08:04 | Internal Med Progress Note ---
SUBJECTIVE Subjective Patient information: Note initiated : 09/15/22 at 8:00 am Service Date, if different from initiated Date: [] Patient: Crystal Conley a 72 y/o F admitted on 09/14/22 for weakness/sepsis. Chief Complaint: [] Interval history: History of present illness: Ms. Conley is a 72 year old F Presents to ED with generalized weakness and lethargy. As well as body aches chills some nausea and urinary urgency. She also complains of some lightheadedness and symptoms have been occurring for several days. she denies fevers but complains of headache and body aches as well. dip in the ED was consistent with infection. Urinalysis pending. she was hypotensive in the ED and requiring Levophed despite IV fluids. Chest x-ray was concerning for some mild interstitial fluid. last echo done in 12/2021 showed a good EF and no diastolic dysfunction. laboratory showed a mild elevation of BUN/creatinine ratio elevated procalcitonin of 4.9. WBCs were within normal limits but manual differential is pending. 09/15 Patient feels tired this morning, has headache which she gets at home. Still on Levophed. Blood cultures gram-negative bacillus. Urine cultures pending. Leukocytosis noted. And elevated procalcitonin. Review of Systems: Pertinent positives as above. denies fever/vomiting/chest or abdominal pain/cough/dyspnea/diarrhea. PHYSICAL EXAM General: Alert, Awake, No acute Distress Eyes/N/T: EOMI, no scleral icterus, Head/Neck: neck supple, full ROM, CV: RRR, 3/6SM, Pulm: mild right base rales/rhonchi, no wheezing, no respiratory distress Abd: soft, nontender, +BS x4 Ext: no clubbing/cyanosis, 1+b/l LE edema, nontender Neuro: Alert, no focal deficits, moves all extremities, , sensations intact b/l upper/lower Psychiatric: Skin: warm/dry, normal color Constitutional Vitals: Vital Signs Temp Pulse Resp BP Pulse Ox O2 Del Method 97.7 F 61 22 157/63 98 Room Air 09/15/22 04:00 09/15/22 07:43 09/15/22 07:43 09/15/22 07:32 09/15/22 07:43 09/15/22 07:01 Period Temp Pulse Resp BP Sys/Mai Pulse Ox O2 Del Method O2 Flow Rate Last 24 Hr 97.2 F-98.7 F 58-72 14-32 71-157/28-122 94-100 Room Air-Room Air Intake and Output 09/14/22 09/15/22 09/15/22 19:59 03:59 11:59 Intake Total 114 120 418 Output Total 25 550 Balance 114 95 -132 Weight 65.317 kg Intake & Output: Intake & Output 09/14/22 09/15/22 09/15/22 19:59 03:59 11:59 Intake Total 114 120 418 Output Total 25 550 Balance 114 95 -132 Weight 65.317 kg Intake: IV 114 120 378 Sodium Chloride 0.9% 250 ml @ 250 20 mls/hr IV .[id number] [facility] Rx#: [id number] Levophed 8 mg In Sodium 64 120 128 Chloride 0.9% 242 ml @ 10 MCG/ MIN 18.75 mls/hr IV Q14H [facility] Rx #:[id number] Rocephin 2 gm In Dextrose 5% in 50 Water 50 ml @ 100 mls/hr IV ONCE ONE Rx#:[id number] Oral 0 40 Output: Void Amount 25 550 Other: Meal Dinner Percent of Meal Consumed 75% Feeding Ability Assist with Tray Set Up Urine Appearance Clear Clear Urine Color Dark [place] Dark Yellow Urine Odor Foul Strong # Voids 1 OBJ DATA Labs 09/15/22 05:28 09/15/22 05:28 Labs: Abnormal Lab Results 09/15/22 09/15/22 09/15/22 05:28 05:28 05:28 WBC 13.0 H RBC 3.57 L MCV 103.1 H MCH Plt Count 119 L Neut % (Auto) 79.8 H Lymph % (Auto) 4.8 L [place] % (Auto) 13.5 H Lymph # (Auto) 0.62 L [place] # (Auto) 1.75 H Seg Neutrophils % Lymphocytes % Immature Gran # 0.07 H Absolute Neutrophils 10.33 H Platelet Estimate RBC Morphology Macrocytosis PT INR Carbon Dioxide 18 L POC Total CO2 POC Anion Gap POC BUN BUN 27 H Creatinine 1.3 H POC Creatinine POC Glucose Calcium 7.8 L POC WB Ioniz Calcium Total Bilirubin 2.3 H Direct Bilirubin 0.9 H AST 40 H Alkaline Phosphatase Lactate Dehydrogenase 342 H NT-Pro-B Natriuret Pep Total Protein 5.5 L Albumin 2.7 L Procalcitonin 11.32 H Urine Appearance Urine Protein Urine Urobilinogen Ur Leukocyte Esterase Urine RBC Urine WBC Ur Squamous Epith Cells Urine Bacteria Granular Casts Urine Mucus 09/15/22 09/14/22 09/14/22 05:28 13:55 10:59 WBC RBC MCV MCH Plt Count Neut % (Auto) Lymph % (Auto) [place] % (Auto) Lymph # (Auto) [place] # (Auto) Seg Neutrophils % Lymphocytes % Immature Gran # Absolute Neutrophils Platelet Estimate RBC Morphology Macrocytosis PT 31.9 H INR 3.0 H Carbon Dioxide POC Total CO2 POC Anion Gap POC BUN BUN Creatinine POC Creatinine POC Glucose Calcium POC WB Ioniz Calcium Total Bilirubin 2.2 H Direct Bilirubin 0.8 H AST 44 H Alkaline Phosphatase 134 H Lactate Dehydrogenase NT-Pro-B Natriuret Pep Total Protein 5.5 L Albumin Procalcitonin Urine Appearance Cloudy A Urine Protein 100 A Urine Urobilinogen 4.0 A Ur Leukocyte Esterase 250 A Urine RBC 56 H Urine WBC > 182 H Ur Squamous Epith Cells 5 H Urine Bacteria Few A Granular Casts 19 H Urine Mucus Mod A 09/14/22 09/14/22 09/14/22 10:59 10:59 10:59 WBC RBC MCV MCH Plt Count Neut % (Auto) Lymph % (Auto) [place] % (Auto) Lymph # (Auto) [place] # (Auto) Seg Neutrophils % 85 H Lymphocytes % 5 L Immature Gran # Absolute Neutrophils Platelet Estimate Decreased A RBC Morphology Abnormal A Macrocytosis 1+ A PT 30.1 H INR 2.7 H Carbon Dioxide POC Total CO2 POC Anion Gap POC BUN BUN Creatinine POC Creatinine POC Glucose Calcium POC WB Ioniz Calcium Total Bilirubin Direct Bilirubin AST Alkaline Phosphatase Lactate Dehydrogenase NT-Pro-B Natriuret Pep Total Protein Albumin Procalcitonin 4.94 H Urine Appearance Urine Protein Urine Urobilinogen Ur Leukocyte Esterase Urine RBC Urine WBC Ur Squamous Epith Cells Urine Bacteria Granular Casts Urine Mucus 09/14/22 09/14/22 09/14/22 10:59 10:50 10:47 WBC RBC MCV 102.1 H MCH 34.2 H Plt Count 102 L Neut % (Auto) 93.4 H Lymph % (Auto) 2.4 L [place] % (Auto) Lymph # (Auto) 0.20 L [place] # (Auto) Seg Neutrophils % Lymphocytes % Immature Gran # Absolute Neutrophils Platelet Estimate RBC Morphology Macrocytosis PT INR Carbon Dioxide POC Total CO2 19.0 L POC Anion Gap 19.0 H POC BUN 21 H BUN Creatinine POC Creatinine 1.4 H POC Glucose 110 H Calcium POC WB Ioniz Calcium 1.08 L Total Bilirubin Direct Bilirubin AST Alkaline Phosphatase Lactate Dehydrogenase NT-Pro-B Natriuret Pep 2663.0 H Total Protein Albumin Procalcitonin Urine Appearance Urine Protein Urine Urobilinogen Ur Leukocyte Esterase Urine RBC Urine WBC Ur Squamous Epith Cells Urine Bacteria Granular Casts Urine Mucus Meds: Medications Hydrocodone Bitart/Acetaminophen (Hydrocodone/Apap 7.5/325mg Tablet) 1 - 2 tab PO Q8HP PRN; Protocol PRN Reason: Per Pain Protocol Last Admin: 09/14/22 21:36 Dose: 1 tab Albuterol/Ipratropium (Ipratropium/Albuterol 3 Ml Ampul.Neb) 3 ml NEB Q4HP PRN PRN Reason: Shortness Of Breath Amiodarone HCl (Amiodarone Hcl 200 Mg Tablet) 200 mg PO HS [facility] Last Admin: 09/14/22 20:49 Dose: Not Given Aspirin (Aspirin 81 Mg Tab.Chew) 81 mg PO DAILY [facility] Atorvastatin Calcium (Atorvastatin 40 Mg Tablet) 40 mg PO HS [facility] Bupropion HCl (Bupropion 150 Mg Tab.Xl.24h) 300 mg PO DAILY [facility] Ceftriaxone Sodium (Ceftriaxone 1 Gm Vial) 1 gm IV Q24H [facility] Docusate Sodium (Docusate Sodium 100 Mg Capsule) 100 mg PO BID [facility] Last Admin: 09/14/22 18:59 Dose: 100 mg Norepinephrine Bitartrate 8 mg (/ Sodium Chloride) 250 mls @ 18.75 mls/hr IV Q14H [facility]; Protocol Last Titration: 09/15/22 07:37 Dose: Infused Sodium Chloride (Sodium Chloride 0.9%) 250 mls @ 20 mls/hr IV .[id number] [facility] Last Admin: 09/15/22 07:41 Dose: 20 mls/hr Potassium Chloride 40 meq/ (Dextrose) 520 mls @ 130 mls/hr IV PRN PRN PRN Reason: K+ < 3.0 Magnesium Sulfate (Magnesium Sulfate) 2 gm in 50 mls @ 25 mls/hr IV PRN PRN PRN Reason: Magnesium Level </= 1.6 Metoprolol Tartrate (Metoprolol Tartrate 5 Mg/5 Ml Vial) 5 mg IV Q2HP PRN PRN Reason: Tachyarrhythmias HR>110 Ondansetron HCl (Ondansetron 4 Mg/2 Ml Vial) 4 mg IV Q4HP PRN PRN Reason: Nausea And Vomiting Polyethylene Glycol (Polyethylene Glycol 3350 17 Gm Packet) 17 gm PO DAILYP PRN PRN Reason: Constipation Potassium Chloride (Potassium Chloride 20 Meq Tablet) 40 meq PO ONCE PRN PRN Reason: Potassium Level < 3 Potassium Chloride (Potassium Chloride 20 Meq Tablet) 40 meq PO UD PRN PRN Reason: Potassium Level of 3-3.5 Senna (Sennosides 1 Tablet) 2 tab PO DAILY PRN PRN Reason: Constipation Sodium Chloride (0.9 % Sodium Chloride 10 Ml Syringe) 10 ml IV Q8 [facility] Last Admin: 09/15/22 05:30 Dose: 10 ml Thyroid (Thyroid, Pork 60 Mg Tablet) 60 mg PO QDAY [facility] Warfarin Sodium (Warfarin Per Pharmacy) 1 order PO DAILY@1400 [facility] A/P Narrative A/P Narrative: A: *UTI Complicated(GNB): *Bacteremia(GNB): *Septic shock: 2/2 above -leukocytosis *Metabolic acidosis: 2/2 above *CKD III: *Generalized weakness/Lethargy: 2/2 above *Chronic A-fib: On warfarin and amiodarone *Mechanical mitral valve: On warfarin *?h/o CHF: *h/o CVA: on asa/statin *Hypothyroidism: *Depression/anxiety: * P: -IV Abx, Pending UC/BC -Levophed when off as able, albumin x1 -continue amiodarone -monitor renal function/UOP/fluid balance closely -follow-up manual differential and chemistry -trend pct -restart Lasix/Aldactone once off pressors -continue aspirin/statin -continue psych meds -CM for placement -pt/ot -ppx: warfarin per pharmacy DNR Time Spent With Patient Time: Total time spent is greater than 50% in coordination of care (as documented) at patient's floor/unit and/or counseling patient: Critical Care Time: Yes Total Critical Care Time: 55 QUALITY VTE Deep Vein Thrombosis/Pulmonary Embolism Present on Admission: No
[2022-09-15] MEDS: NOREPINEPHRINE BITARTRATE 8 MG in 0.9 % SODIUM CHLORIDE 242 ML IV SCH ×2 (08:08→22:25)
[2022-09-15] MEDS ORDERED: ACETAMINOPHEN 325 MG TABLET PO PRN (08:22)
[2022-09-15] MEDS: DOCUSATE SODIUM 100 MG CAPSULE PO SCH ×2 (08:29→21:04)
[2022-09-15] MEDS: buPROPion 150 MG TAB.XL.24H PO SCH (08:30)
[2022-09-15] MEDS: ASPIRIN 81 MG TAB.CHEW PO SCH (08:30)
[2022-09-15] MEDS: THYROID, PORK 60 MG TABLET PO SCH (08:47)
[2022-09-15] MEDS ORDERED: cefTRIAXone 1 GM VIAL IV SCH ×3 (09:00)
[2022-09-15] MEDS: cefTRIAXone 2 GM in DEXTROSE 5% IN WATER 50 ML IV SCH (09:05)
[2022-09-15] MEDS ORDERED: BUTALB/ACETAMINOPHEN/CAFFEINE 1 TABLET PO ONE (09:19)
[2022-09-15] MEDS: HYDROCODONE/APAP 7.5/325MG TABLET PO PRN (19:25)
[2022-09-15] MEDS ORDERED: AMIODARONE HCL 200 MG TABLET PO SCH (21:00)
[2022-09-15] MEDS: AMIODARONE HCL 200 MG TABLET PO SCH (21:04)
[2022-09-15] MEDS: ATORVASTATIN 40 MG TABLET PO SCH (21:04)
[2022-09-16] MEDS: 0.9 % SODIUM CHLORIDE 10 ML SYRINGE IV SCH ×3 (06:09→20:51)
[2022-09-16 06:40] LABS: Hematocrit 32.9 % (34.1-44.9); Hemoglobin 10.6 g/dL (11.2-15.7); Mean Cell Volume 103.8 fL (80.0-100.0); Mean Corpuscular HGB Conc 32.2 g/dL (31.0-36.0); Mean Platelet Volume 10.8 fL (8.8-12.5); Platelet Count 105 K/mcL (140-440); RBC 3.17 M/mcL (3.59-5.38); Red Cell Distribution Width 13.4 % (11.5-14.5); WBC 6.8 K/mcL (4.5-11.0)
[2022-09-16 06:54] LABS: INR 2.9 (0.9-1.1); Prothrombin Time 31.1 sec (11.9-14.5)
[2022-09-16 07:19] LABS: ALT/SGPT 14 U/L (<40); AST/SGOT 30 U/L (<32); Albumin 2.6 gm/dL (3.2-5.2); Alkaline Phosphatase 94 U/L (39-117); Bilirubin,Direct 0.6 mg/dL (<0.3); Bilirubin,Total 1.6 mg/dL (0.1-1.0); Blood Urea Nitrogen 22 mg/dL (8-23); Carbon Dioxide 20 mmol/L (22-30); Chloride 105 mmol/L (96-108); Globulin 2.6 gm/dL (2.2-3.7); Glomerular Filtration Rate 63; Glucose 101 mg/dL (70-105); Lactate Dehydrogenase 294 U/L (135-225); Phosphorous 2.6 mg/dL (2.5-4.5); Triglycerides 67 mg/dL (<150); Uric Acid 4.5 mg/dL (2.5-8.0)
[2022-09-16 07:43] LABS: Band Neutrophils % 3 % (0-10); Basophils % (Manual) 2 % (0-2); Eosinophils % (Manual) 1 % (0-7); Lymphocytes % 12 % (15-49); Macrocytosis 1+ (None Seen); Monocytes % (Manual) 17 % (1-12); Platelet Estimate DECREASED (Normal); RBC Morphology ABNORMAL (Normal); Segmented Neutrophils % 65 % (38-78)
--- NOTE | 2022-09-16 07:45 | Internal Med Progress Note ---
SUBJECTIVE Subjective Patient information: Note initiated : 09/16/22 at 7:43 am Service Date, if different from initiated Date: [] Patient: Crystal Conley a 72 y/o F admitted on 09/14/22 for weakness/sepsis. Chief Complaint: [] Interval history: History of present illness: Ms. Conley is a 72 year old F Presents to ED with generalized weakness and lethargy. As well as body aches chills some nausea and urinary urgency. She also complains of some lightheadedness and symptoms have been occurring for several days. she denies fevers but complains of headache and body aches as well. dip in the ED was consistent with infection. Urinalysis pending. she was hypotensive in the ED and requiring Levophed despite IV fluids. Chest x-ray was concerning for some mild interstitial fluid. last echo done in 12/2021 showed a good EF and no diastolic dysfunction. laboratory showed a mild elevation of BUN/creatinine ratio elevated procalcitonin of 4.9. WBCs were within normal limits but manual differential is pending. 09/15 Patient feels tired this morning, has headache which she gets at home. Still on Levophed. Blood cultures gram-negative bacillus. Urine cultures pending. Leukocytosis noted. And elevated procalcitonin. 09/16 Patient still on Levophed although requirement is less than yesterday. Leukocytosis resolved. Urine culture with E. coli blood culture with gram- negative bacillus. Continue on Rocephin. Albumin x2 rounds today. Cautious with IV fluids as patient has a history of CHF. Review of Systems: Pertinent positives as above. denies fever/vomiting/chest or abdominal pain/cough/dyspnea/diarrhea. PHYSICAL EXAM General: Alert, Awake, No acute Distress Eyes/N/T: EOMI, no scleral icterus, Head/Neck: neck supple, full ROM, CV: RRR, 3/6SM, Pulm: mild right base rales, no wheezing, no respiratory distress Abd: soft, nontender, +BS x4 Ext: no clubbing/cyanosis, 1+b/l LE edema, nontender Neuro: Alert, no focal deficits, moves all extremities, , sensations intact b/l upper/lower Psychiatric: Skin: warm/dry, normal color Constitutional Vitals: Vital Signs Temp Pulse Resp BP Pulse Ox O2 Del Method 98.2 F 57 L 15 131/55 98 Room Air 09/16/22 04:01 09/16/22 06:02 09/16/22 06:02 09/16/22 06:02 09/16/22 06:02 09/16/22 04:01 Period Temp Pulse Resp BP Sys/Mai Pulse Ox O2 Del Method O2 Flow Rate Last 24 Hr 97.4 F-98.2 F 49-100 14-29 86-147/44-118 93-100 Room Air-Room Air Intake and Output 09/15/22 09/16/22 09/16/22 19:59 03:59 11:59 Intake Total 1127 786 Output Total 250 850 Balance 877 -64 Weight 65.317 kg 66.026 kg Intake & Output: Intake & Output 09/15/22 09/16/22 09/16/22 19:59 03:59 11:59 Intake Total 1127 786 Output Total 250 850 Balance 877 -64 Weight 65.317 kg 66.026 kg Intake: IV 187 266 Sodium Chloride 0.9% 250 ml @ 250 20 mls/hr IV .[id number] DIETER Rx#: [id number] Levophed 8 mg In Sodium 187 16 Chloride 0.9% 242 ml @ 10 MCG/ MIN 18.75 mls/hr IV Q14H DIETER Rx #:[id number] Oral 940 520 Output: Void Amount 250 850 Other: Meal Lunch Dinner Percent of Meal Consumed 75% 50% Feeding Ability Independent Urine Appearance Clear Clear Urine Color Dark Yellow Yellow Stool Size Small Stool Color Brown Stool Consistency Soft Formed # Voids 1 # Bowel Movements 1 OBJ DATA Labs 09/16/22 05:28 09/16/22 05:28 Labs: Abnormal Lab Results 09/16/22 09/16/22 09/16/22 05:29 05:28 05:28 WBC RBC Hgb Hct MCV MCH Plt Count Neut % (Auto) Lymph % (Auto) [place] % (Auto) Lymph # (Auto) [place] # (Auto) Seg Neutrophils % Lymphocytes % Immature Gran # Absolute Neutrophils Platelet Estimate RBC Morphology Macrocytosis PT 31.1 H INR 2.9 H Carbon Dioxide 20 L POC Total CO2 POC Anion Gap POC BUN BUN Creatinine POC Creatinine POC Glucose Calcium 8.0 L POC WB Ioniz Calcium Total Bilirubin 1.6 H Direct Bilirubin 0.6 H AST Alkaline Phosphatase Lactate Dehydrogenase 294 H NT-Pro-B Natriuret Pep Total Protein 5.2 L Albumin 2.6 L Procalcitonin 5.74 H Urine Appearance Urine Protein Urine Urobilinogen Ur Leukocyte Esterase Urine RBC Urine WBC Ur Squamous Epith Cells Urine Bacteria Granular Casts Urine Mucus 09/16/22 09/15/22 09/15/22 05:28 05:28 05:28 WBC RBC 3.17 L Hgb 10.6 L Hct 32.9 L MCV 103.8 H MCH Plt Count 105 L Neut % (Auto) Lymph % (Auto) [place] % (Auto) Lymph # (Auto) [place] # (Auto) Seg Neutrophils % Lymphocytes % Immature Gran # Absolute Neutrophils Platelet Estimate RBC Morphology Macrocytosis PT INR Carbon Dioxide 18 L POC Total CO2 POC Anion Gap POC BUN BUN 27 H Creatinine 1.3 H POC Creatinine POC Glucose Calcium 7.8 L POC WB Ioniz Calcium Total Bilirubin 2.3 H Direct Bilirubin 0.9 H AST 40 H Alkaline Phosphatase Lactate Dehydrogenase 342 H NT-Pro-B Natriuret Pep Total Protein 5.5 L Albumin 2.7 L Procalcitonin 11.32 H Urine Appearance Urine Protein Urine Urobilinogen Ur Leukocyte Esterase Urine RBC Urine WBC Ur Squamous Epith Cells Urine Bacteria Granular Casts Urine Mucus 09/15/22 09/15/22 09/14/22 05:28 05:28 13:55 WBC 13.0 H RBC 3.57 L Hgb Hct MCV 103.1 H MCH Plt Count 119 L Neut % (Auto) 79.8 H Lymph % (Auto) 4.8 L [place] % (Auto) 13.5 H Lymph # (Auto) 0.62 L [place] # (Auto) 1.75 H Seg Neutrophils % Lymphocytes % Immature Gran # 0.07 H Absolute Neutrophils 10.33 H Platelet Estimate RBC Morphology Macrocytosis PT 31.9 H INR 3.0 H Carbon Dioxide POC Total CO2 POC Anion Gap POC BUN BUN Creatinine POC Creatinine POC Glucose Calcium POC WB Ioniz Calcium Total Bilirubin Direct Bilirubin AST Alkaline Phosphatase Lactate Dehydrogenase NT-Pro-B Natriuret Pep Total Protein Albumin Procalcitonin Urine Appearance Cloudy A Urine Protein 100 A Urine Urobilinogen 4.0 A Ur Leukocyte Esterase 250 A Urine RBC 56 H Urine WBC > 182 H Ur Squamous Epith Cells 5 H Urine Bacteria Few A Granular Casts 19 H Urine Mucus Mod A 09/14/22 09/14/22 09/14/22 10:59 10:59 10:59 WBC RBC Hgb Hct MCV MCH Plt Count Neut % (Auto) Lymph % (Auto) [place] % (Auto) Lymph # (Auto) [place] # (Auto) Seg Neutrophils % 85 H Lymphocytes % 5 L Immature Gran # Absolute Neutrophils Platelet Estimate Decreased A RBC Morphology Abnormal A Macrocytosis 1+ A PT 30.1 H INR 2.7 H Carbon Dioxide POC Total CO2 POC Anion Gap POC BUN BUN Creatinine POC Creatinine POC Glucose Calcium POC WB Ioniz Calcium Total Bilirubin 2.2 H Direct Bilirubin 0.8 H AST 44 H Alkaline Phosphatase 134 H Lactate Dehydrogenase NT-Pro-B Natriuret Pep Total Protein 5.5 L Albumin Procalcitonin Urine Appearance Urine Protein Urine Urobilinogen Ur Leukocyte Esterase Urine RBC Urine WBC Ur Squamous Epith Cells Urine Bacteria Granular Casts Urine Mucus 09/14/22 09/14/22 09/14/22 10:59 10:59 10:50 WBC RBC Hgb Hct MCV 102.1 H MCH 34.2 H Plt Count 102 L Neut % (Auto) 93.4 H Lymph % (Auto) 2.4 L [place] % (Auto) Lymph # (Auto) 0.20 L [place] # (Auto) Seg Neutrophils % Lymphocytes % Immature Gran # Absolute Neutrophils Platelet Estimate RBC Morphology Macrocytosis PT INR Carbon Dioxide POC Total CO2 POC Anion Gap POC BUN BUN Creatinine POC Creatinine POC Glucose Calcium POC WB Ioniz Calcium Total Bilirubin Direct Bilirubin AST Alkaline Phosphatase Lactate Dehydrogenase NT-Pro-B Natriuret Pep 2663.0 H Total Protein Albumin Procalcitonin 4.94 H Urine Appearance Urine Protein Urine Urobilinogen Ur Leukocyte Esterase Urine RBC Urine WBC Ur Squamous Epith Cells Urine Bacteria Granular Casts Urine Mucus 09/14/22 10:47 WBC RBC Hgb Hct MCV MCH Plt Count Neut % (Auto) Lymph % (Auto) [place] % (Auto) Lymph # (Auto) [place] # (Auto) Seg Neutrophils % Lymphocytes % Immature Gran # Absolute Neutrophils Platelet Estimate RBC Morphology Macrocytosis PT INR Carbon Dioxide POC Total CO2 19.0 L POC Anion Gap 19.0 H POC BUN 21 H BUN Creatinine POC Creatinine 1.4 H POC Glucose 110 H Calcium POC WB Ioniz Calcium 1.08 L Total Bilirubin Direct Bilirubin AST Alkaline Phosphatase Lactate Dehydrogenase NT-Pro-B Natriuret Pep Total Protein Albumin Procalcitonin Urine Appearance Urine Protein Urine Urobilinogen Ur Leukocyte Esterase Urine RBC Urine WBC Ur Squamous Epith Cells Urine Bacteria Granular Casts Urine Mucus Meds: Medications Acetaminophen (Acetaminophen 325 Mg Tablet) 650 mg PO Q4-6HP PRN; Protocol PRN Reason: Per Pain Protocol Last Admin: 09/15/22 08:29 Dose: 650 mg Hydrocodone Bitart/Acetaminophen (Hydrocodone/Apap 7.5/325mg Tablet) 1 - 2 tab PO Q8HP PRN; Protocol PRN Reason: Per Pain Protocol Last Admin: 09/15/22 19:25 Dose: 1 tab Albuterol/Ipratropium (Ipratropium/Albuterol 3 Ml Ampul.Neb) 3 ml NEB Q4HP PRN PRN Reason: Shortness Of Breath Amiodarone HCl (Amiodarone Hcl 200 Mg Tablet) 200 mg PO HS COUNT INCLUDES THE [facility] Last Admin: 09/15/22 21:04 Dose: 200 mg Aspirin (Aspirin 81 Mg Tab.Chew) 81 mg PO DAILY COUNT INCLUDES THE [facility] Last Admin: 09/15/22 08:30 Dose: 81 mg Atorvastatin Calcium (Atorvastatin 40 Mg Tablet) 40 mg PO HS COUNT INCLUDES THE [facility] Last Admin: 09/15/22 21:04 Dose: 40 mg Bupropion HCl (Bupropion 150 Mg Tab.Xl.24h) 300 mg PO DAILY COUNT INCLUDES THE [facility] Last Admin: 09/15/22 08:30 Dose: 300 mg Docusate Sodium (Docusate Sodium 100 Mg Capsule) 100 mg PO BID COUNT INCLUDES THE [facility] Last Admin: 09/15/22 21:04 Dose: 100 mg Norepinephrine Bitartrate 8 mg (/ Sodium Chloride) 250 mls @ 18.75 mls/hr IV Q 14H COUNT INCLUDES THE [facility]; Protocol Last Titration: 09/15/22 23:23 Dose: 10 mcg/min, 18.75 mls/hr Sodium Chloride (Sodium Chloride 0.9%) 250 mls @ 20 mls/hr IV .[id number] COUNT INCLUDES THE [facility] Last Admin: 09/15/22 20:12 Dose: 20 mls/hr Potassium Chloride 40 meq/ (Dextrose) 520 mls @ 130 mls/hr IV PRN PRN PRN Reason: K+ < 3.0 Magnesium Sulfate (Magnesium Sulfate) 2 gm in 50 mls @ 25 mls/hr IV PRN PRN PRN Reason: Magnesium Level </= 1.6 Ceftriaxone Sodium 2 gm/ (Dextrose) 50 mls @ 100 mls/hr IV Q24H COUNT INCLUDES THE [facility] Last Infusion: 09/15/22 09:37 Dose: Infused Metoprolol Tartrate (Metoprolol Tartrate 5 Mg/5 Ml Vial) 5 mg IV Q2HP PRN PRN Reason: Tachyarrhythmias HR>110 Ondansetron HCl (Ondansetron 4 Mg/2 Ml Vial) 4 mg IV Q4HP PRN PRN Reason: Nausea And Vomiting Polyethylene Glycol (Polyethylene Glycol 3350 17 Gm Packet) 17 gm PO DAILYP PRN PRN Reason: Constipation Potassium Chloride (Potassium Chloride 20 Meq Tablet) 40 meq PO ONCE PRN PRN Reason: Potassium Level < 3 Potassium Chloride (Potassium Chloride 20 Meq Tablet) 40 meq PO UD PRN PRN Reason: Potassium Level of 3-3.5 Senna (Sennosides 1 Tablet) 2 tab PO DAILY PRN PRN Reason: Constipation Sodium Chloride (0.9 % Sodium Chloride 10 Ml Syringe) 10 ml IV Q8 COUNT INCLUDES THE [facility] Last Admin: 09/16/22 06:09 Dose: 10 ml Thyroid (Thyroid, Pork 60 Mg Tablet) 60 mg PO QDAY COUNT INCLUDES THE [facility] Last Admin: 09/15/22 08:47 Dose: 60 mg Warfarin Sodium (Warfarin Per Pharmacy) 1 order PO UD COUNT INCLUDES THE [facility] A/P Narrative A/P Narrative: A: *Septic shock: 2/2 below -leukocytosis improving -still on levophed *UTI Complicated(E. coli): *Bacteremia(GNB): pct now improving *Metabolic acidosis: 2/2 above *CKD III: *Generalized weakness/Lethargy: 2/2 above *Chronic A-fib: On warfarin and amiodarone *Mechanical mitral valve: On warfarin *?h/o CHF: *h/o CVA: on asa/statin *Hypothyroidism: *Depression/anxiety: * P: -IV Abx, Pending UC/BC -Levophed when off as able, albumin today -continue home amiodarone -monitor renal function/UOP/fluid balance closely -follow-up manual differential and chemistry -trend pct -restart Lasix/Aldactone once off pressors, JOSE's -continue aspirin/statin -continue psych meds -CM for placement -pt/ot -ppx: warfarin per pharmacy DNR Time Spent With Patient Time: Total time spent is greater than 50% in coordination of care (as documented) at patient's floor/unit and/or counseling patient: Subsequent: Total time with patient: 50 - 65 Minutes QUALITY VTE Deep Vein Thrombosis/Pulmonary Embolism Present on Admission: No
[2022-09-16] MEDS: 0.9 % SODIUM CHLORIDE 250 ML IV SCH ×3 (07:56→21:49)
[2022-09-16] MEDS: THYROID, PORK 60 MG TABLET PO SCH (09:34)
[2022-09-16] MEDS: ASPIRIN 81 MG TAB.CHEW PO SCH (09:34)
[2022-09-16] MEDS: DOCUSATE SODIUM 100 MG CAPSULE PO SCH ×2 (09:34→20:51)
[2022-09-16] MEDS: ALBUMIN HUMAN 12.5 GM/50 ML VIAL IV SCH ×2 (09:35→17:30)
[2022-09-16] MEDS: cefTRIAXone 2 GM in DEXTROSE 5% IN WATER 50 ML IV SCH (09:35)
[2022-09-16] MEDS: buPROPion 150 MG TAB.XL.24H PO SCH (09:39)
--- NOTE | 2022-09-16 10:59 | Discharge Summary ---
Discharge Provider Provider IMPORTANT FOLLOW-UP INFORMATION FOR PCP: Patient information: Note initiated : 09/16/22 at 10:58 am Service Date, if different from initiated Date: [] Patient: Crystal Conley a 72 y/o F admitted on 09/14/22 for weakness/sepsis. Chief Complaint: [] Date of admission: 09/14/22 17:00 Discharge date: 09/18/22 Primary care physician: Joie Wood PA-C Consults: 09/14/22 Consult to Physician [CONS] Stat Comment: Consulting Provider: Elliott Weiss Reason For Exam: Physician to Consult COURSE Hospital Course Hospital course: History of present illness: Ms. Conley is a 72 year old F Presents to ED with generalized weakness and lethargy. As well as body aches chills some nausea and urinary urgency. She also complains of some lightheadedness and symptoms have been occurring for several days. she denies fevers but complains of headache and body aches as well. dip in the ED was consistent with infection. Urinalysis pending. she was hypotensive in the ED and requiring Levophed despite IV fluids. Chest x-ray was concerning for some mild interstitial fluid. last echo done in 12/2021 showed a good EF and no diastolic dysfunction. laboratory showed a mild elevation of BUN/creatinine ratio elevated procalcitonin of 4.9. WBCs were within normal limits but manual differential is pending. 09/15 Patient feels tired this morning, has headache which she gets at home. Still on Levophed. Blood cultures gram-negative bacillus. Urine cultures pending. Leukocytosis noted. And elevated procalcitonin. 09/16 Patient still on Levophed although requirement is less than yesterday. Leukocytosis resolved. Urine culture with E. coli blood culture with gram- negative bacillus. Continue on Rocephin. Albumin x2 rounds today. Cautious with IV fluids as patient has a history of CHF. 09/17 Patient feeling better today. Off Levophed overnight. Blood pressure good this morning. Monitor blood pressure closely this morning while off Levophed. May restart home diuretics as she feels she is starting to retain fluid again. 09/18 No new complaints overnight events.blood pressure has been good. Patient stable for discharge A: *Septic shock: 2/2 below *UTI Complicated(E. coli): *Bacteremia(E.coli): *Metabolic acidosis: *CKD III: *Generalized weakness/Lethargy: *Chronic A-fib: *Mechanical mitral valve: On warfarin *?h/o CHF: *h/o CVA: on asa/statin *Hypothyroidism: *Depression/anxiety: * P: -Abx Discharge diagnosis: Septic shock complicated UTI with E. coli and bacteremia metabolic acidosis Secondary discharge diagnosis: Chronic disease generalized weakness chronic A-fib mechanical mitral valve history of stroke hypothyroidism depression anxiety Time Spent with Patient Time attestation: Total time spent providing and/or coordinating discharge services: Time spent: Greater than 30 minutes EXAM Constitutional Vitals: Temp Pulse Resp BP Pulse Ox O2 Del Method 98.2 F 57 L 15 131/55 98 Room Air 09/16/22 04:01 09/16/22 06:02 09/16/22 06:02 09/16/22 06:02 09/16/22 06:02 09/16/22 04:01 Discharge Data Data Completed and Pending Labs on day of discharge: Labs from last 24 hours 09/16/22 09/16/22 09/16/22 05:29 05:28 05:28 WBC RBC Hgb Hct MCV MCH MCHC RDW Plt Count MPV Seg Neutrophils % Band Neutrophils % Lymphocytes % Monocytes % (Manual) Eosinophils % (Manual) Basophils % (Manual) Platelet Estimate RBC Morphology Macrocytosis PT 31.1 H INR 2.9 H Sodium 135 Potassium 3.9 Chloride 105 Carbon Dioxide 20 L Anion Gap 10.0 BUN 22 Creatinine 0.9 GFR Calculation 63 Glucose 101 Uric Acid 4.5 Calcium 8.0 L Phosphorus 2.6 Magnesium 1.9 Total Bilirubin 1.6 H Direct Bilirubin 0.6 H GGT 21 AST 30 ALT 14 Alkaline Phosphatase 94 Lactate Dehydrogenase 294 H Total Protein 5.2 L Albumin 2.6 L Globulin 2.6 Albumin/Globulin Ratio 1.0 Triglycerides 67 Procalcitonin 5.74 H 09/16/22 05:28 WBC 6.8 RBC 3.17 L Hgb 10.6 L Hct 32.9 L MCV 103.8 H MCH 33.4 MCHC 32.2 RDW 13.4 Plt Count 105 L MPV 10.8 Seg Neutrophils % 65 Band Neutrophils % 3 Lymphocytes % 12 L Monocytes % (Manual) 17 H Eosinophils % (Manual) 1 Basophils % (Manual) 2 Platelet Estimate Decreased A RBC Morphology Abnormal A Macrocytosis 1+ A PT INR Sodium Potassium Chloride Carbon Dioxide Anion Gap BUN Creatinine GFR Calculation Glucose Uric Acid Calcium Phosphorus Magnesium Total Bilirubin Direct Bilirubin GGT AST ALT Alkaline Phosphatase Lactate Dehydrogenase Total Protein Albumin Globulin Albumin/Globulin Ratio Triglycerides Procalcitonin Preliminary micro results at discharge 09/14/22 12:05 Blood Culture - Preliminary Blood 09/14/22 11:45 Blood Culture - Preliminary Blood Gram negative bacillus Discharge Plan Patient/Caregiver Discharge Instructions Activity: increase activity as tolerated Diet: Regular Diet Prescriptions: New ciprofloxacin HCl [Cipro] 500 mg tablet 500 mg PO BID Qty: 5 0RF Rx Instructions: start on 09/19/2022. Continued warfarin 1 mg tablet See Rx Instructions PO .COMPLEX Qty: 120 0RF Protocol: Dose Management Condition: Tuesday Dose/Route: 2 mg Instruction: 2 x 1 mg tablets Condition: Tuesday Dose/Route: 1 mg Instruction: 1 x 1 mg tablet Condition: Tuesday Dose/Route: 2 mg Instruction: 2 x 1 mg tablets Condition: Tuesday Dose/Route: 1 mg Instruction: 1 x 1 mg tablet Condition: Dose/Route: 2 mg Instruction: 2 x 1 mg tablets Condition: Tuesday Dose/Route: 1 mg Instruction: 1 x 1 mg tablet Condition: Tuesday Dose/Route: 2 mg Instruction: 2 x 1 mg tablets Protocol Text: Adjustment Start Date: 09/16/22 INR Value: 2.9 INR Date: 09/16/22 Recheck Date: 09/23/22 Rx Instructions: 1mg Tue,Tue,Tue & 2mg the other 4 days/week; or as directed by physician vitamin B complex 1 each PO DAILY cholecalciferol (vitamin D3) 2,000 units PO DAILY aspirin 81 mg tablet,delayed release (DR/EC) 81 mg PO BID hydrocodone-acetaminophen 7.5-325 mg tablet 1 - 2 tab PO Q8H PRN (Reason: pain) atorvastatin 40 mg tablet 40 mg PO QHS alendronate [Fosamax] 70 mg tablet 70 mg PO QWEEK Qty: 30 0RF Rx Instructions: Takes on Tuesday bupropion HCl [Wellbutrin XL] 300 mg tablet extended release 24 hr 300 mg PO QAM Qty: 90 1RF thyroid (pork) [[employer] Thyroid] 60 mg tablet 60 mg PO QDAY Qty: 90 1RF spironolactone 25 mg tablet 25 mg PO QDAY furosemide 20 mg tablet 20 mg PO QDAY amiodarone 200 mg tablet 200 mg PO HS Follow Up Plan Follow up with: Joie Wood PA-C [Primary Care Provider] - Patient Disposition: Home Health Service Prognosis: Fair Overall status at discharge: patient is progressing back to baseline Discharge Orders: Discharge Order (Routine); Ordered 09/18/22 Ordered By: Elliott Weiss [facility] VTE Deep Vein Thrombosis/Pulmonary Embolism Present on Admission: No
[2022-09-16] MEDS: BUTALB/ACETAMINOPHEN/CAFFEINE 1 TABLET PO PRN ×2 (11:39→20:50)
[2022-09-16] MEDS: NOREPINEPHRINE BITARTRATE 8 MG in 0.9 % SODIUM CHLORIDE 242 ML IV SCH (11:50)
[2022-09-16] MEDS ORDERED: WARFARIN 1 MG TABLET PO ONE (14:00)
[2022-09-16] MEDS: ATORVASTATIN 40 MG TABLET PO SCH (20:50)
[2022-09-16] MEDS: AMIODARONE HCL 200 MG TABLET PO SCH (20:50)
[2022-09-17] MEDS: NOREPINEPHRINE BITARTRATE 8 MG in 0.9 % SODIUM CHLORIDE 242 ML IV SCH (02:40)
[2022-09-17] MEDS: 0.9 % SODIUM CHLORIDE 10 ML SYRINGE IV SCH ×3 (04:30→21:01)
[2022-09-17 06:39] LABS: INR 2.5 (0.9-1.1); Prothrombin Time 27.5 sec (11.9-14.5)
[2022-09-17 07:08] LABS: ALT/SGPT 14 U/L (<40); AST/SGOT 27 U/L (<32); Albumin 2.8 gm/dL (3.2-5.2); Albumin/Globulin Ratio 1.1 (1.0-2.3); Alkaline Phosphatase 89 U/L (39-117); Bilirubin,Direct 0.4 mg/dL (<0.3); Bilirubin,Total 0.8 mg/dL (0.1-1.0); Blood Urea Nitrogen 14 mg/dL (8-23); Calcium 7.8 mg/dL (8.6-10.4); Carbon Dioxide 20 mmol/L (22-30); Chloride 107 mmol/L (96-108); Globulin 2.5 gm/dL (2.2-3.7); Glomerular Filtration Rate 73; Glucose 85 mg/dL (70-105); Lactate Dehydrogenase 268 U/L (135-225); Phosphorous 2.5 mg/dL (2.5-4.5); Triglycerides 73 mg/dL (<150); Uric Acid 4.3 mg/dL (2.5-8.0)
--- NOTE | 2022-09-17 08:00 | Internal Med Progress Note ---
SUBJECTIVE Subjective Patient information: Note initiated : 09/17/22 at 7:57 am Service Date, if different from initiated Date: [] Patient: Crystal Conley a 72 y/o F admitted on 09/14/22 for weakness/sepsis. Chief Complaint: [] Interval history: History of present illness: Ms. Conley is a 72 year old F Presents to ED with generalized weakness and lethargy. As well as body aches chills some nausea and urinary urgency. She also complains of some lightheadedness and symptoms have been occurring for several days. she denies fevers but complains of headache and body aches as well. dip in the ED was consistent with infection. Urinalysis pending. she was hypotensive in the ED and requiring Levophed despite IV fluids. Chest x-ray was concerning for some mild interstitial fluid. last echo done in 12/2021 showed a good EF and no diastolic dysfunction. laboratory showed a mild elevation of BUN/creatinine ratio elevated procalcitonin of 4.9. WBCs were within normal limits but manual differential is pending. 09/15 Patient feels tired this morning, has headache which she gets at home. Still on Levophed. Blood cultures gram-negative bacillus. Urine cultures pending. Leukocytosis noted. And elevated procalcitonin. 09/16 Patient still on Levophed although requirement is less than yesterday. Leukocytosis resolved. Urine culture with E. coli blood culture with gram- negative bacillus. Continue on Rocephin. Albumin x2 rounds today. Cautious with IV fluids as patient has a history of CHF. 09/17 Patient feeling better today. Off Levophed overnight. Blood pressure good this morning. Monitor blood pressure closely this morning while off Levophed. May restart home diuretics as she feels she is starting to retain fluid again. Review of Systems: Pertinent positives as above. denies fever/vomiting/chest or abdominal pain/cough/dyspnea/diarrhea. PHYSICAL EXAM General: Alert, Awake, No acute Distress Eyes/N/T: EOMI, no scleral icterus, Head/Neck: neck supple, full ROM, CV: RRR, 3/6SM, Pulm: minimal right base rales, no wheezing, no respiratory distress Abd: soft, nontender, +BS x4 Ext: no clubbing/cyanosis, mild-1+b/l LE edema, nontender Neuro: Alert, no focal deficits, moves all extremities, , sensations intact b/l upper/lower Psychiatric: Skin: warm/dry, normal color Constitutional Vitals: Vital Signs Temp Pulse Resp BP Pulse Ox O2 Del Method 96.8 F L 53 L 14 129/58 99 Room Air 09/17/22 04:01 09/17/22 06:02 09/17/22 06:02 09/17/22 06:02 09/17/22 06:02 09/17/22 04:01 Period Temp Pulse Resp BP Sys/Mai Pulse Ox O2 Del Method O2 Flow Rate Last 24 Hr 96.8 F-99.0 F 27-119 14-31 77-154/41-124 88-100 Room Air-Room Air Intake and Output 09/16/22 09/17/22 09/17/22 19:59 03:59 11:59 Intake Total 693 673 351 Output Total 400 600 550 Balance 293 73 -199 Weight 65.487 kg Intake & Output: Intake & Output 09/16/22 09/17/22 09/17/22 19:59 03:59 11:59 Intake Total 693 673 351 Output Total 400 600 550 Balance 293 73 -199 Weight 65.487 kg Intake: IV 133 273 151 Sodium Chloride 0.9% 250 ml @ 250 151 20 mls/hr IV .[id number] [facility] Rx#: [id number] Levophed 8 mg In Sodium 33 23 Chloride 0.9% 242 ml @ 10 MCG/ MIN 18.75 mls/hr IV Q14H [facility] Rx #:[id number] Rocephin 2 gm In Dextrose 5% in 50 Water 50 ml @ 100 mls/hr IV Q24H [facility] Rx#:[id number] Oral 560 400 200 Output: Void Amount 400 600 550 Other: Meal Dinner Percent of Meal Consumed 100% Urine Appearance Cloudy Clear Urine Color Yellow Dark Yellow Pale Urine Odor Strong OBJ DATA Labs 09/16/22 05:28 09/17/22 05:30 Labs: Abnormal Lab Results 09/17/22 09/17/22 09/17/22 05:31 05:30 05:30 WBC RBC Hgb Hct MCV MCH Plt Count Neut % (Auto) Lymph % (Auto) Morrison % (Auto) Lymph # (Auto) Morrison # (Auto) Seg Neutrophils % Lymphocytes % Monocytes % (Manual) Immature Gran # Absolute Neutrophils Platelet Estimate RBC Morphology Macrocytosis PT 27.5 H INR 2.5 H Carbon Dioxide 20 L POC Total CO2 POC Anion Gap POC BUN BUN Creatinine POC Creatinine POC Glucose Calcium 7.8 L POC WB Ioniz Calcium Total Bilirubin Direct Bilirubin 0.4 H AST Alkaline Phosphatase Lactate Dehydrogenase 268 H NT-Pro-B Natriuret Pep Total Protein 5.3 L Albumin 2.8 L Procalcitonin 2.84 H Urine Appearance Urine Protein Urine Urobilinogen Ur Leukocyte Esterase Urine RBC Urine WBC Ur Squamous Epith Cells Urine Bacteria Granular Casts Urine Mucus 09/16/22 09/16/22 09/16/22 05:29 05:28 05:28 WBC RBC Hgb Hct MCV MCH Plt Count Neut % (Auto) Lymph % (Auto) Morrison % (Auto) Lymph # (Auto) Morrison # (Auto) Seg Neutrophils % Lymphocytes % Monocytes % (Manual) Immature Gran # Absolute Neutrophils Platelet Estimate RBC Morphology Macrocytosis PT 31.1 H INR 2.9 H Carbon Dioxide 20 L POC Total CO2 POC Anion Gap POC BUN BUN Creatinine POC Creatinine POC Glucose Calcium 8.0 L POC WB Ioniz Calcium Total Bilirubin 1.6 H Direct Bilirubin 0.6 H AST Alkaline Phosphatase Lactate Dehydrogenase 294 H NT-Pro-B Natriuret Pep Total Protein 5.2 L Albumin 2.6 L Procalcitonin 5.74 H Urine Appearance Urine Protein Urine Urobilinogen Ur Leukocyte Esterase Urine RBC Urine WBC Ur Squamous Epith Cells Urine Bacteria Granular Casts Urine Mucus 09/16/22 09/15/22 09/15/22 05:28 05:28 05:28 WBC RBC 3.17 L Hgb 10.6 L Hct 32.9 L MCV 103.8 H MCH Plt Count 105 L Neut % (Auto) Lymph % (Auto) Morrison % (Auto) Lymph # (Auto) Morrison # (Auto) Seg Neutrophils % Lymphocytes % 12 L Monocytes % (Manual) 17 H Immature Gran # Absolute Neutrophils Platelet Estimate Decreased A RBC Morphology Abnormal A Macrocytosis 1+ A PT INR Carbon Dioxide 18 L POC Total CO2 POC Anion Gap POC BUN BUN 27 H Creatinine 1.3 H POC Creatinine POC Glucose Calcium 7.8 L POC WB Ioniz Calcium Total Bilirubin 2.3 H Direct Bilirubin 0.9 H AST 40 H Alkaline Phosphatase Lactate Dehydrogenase 342 H NT-Pro-B Natriuret Pep Total Protein 5.5 L Albumin 2.7 L Procalcitonin 11.32 H Urine Appearance Urine Protein Urine Urobilinogen Ur Leukocyte Esterase Urine RBC Urine WBC Ur Squamous Epith Cells Urine Bacteria Granular Casts Urine Mucus 09/15/22 09/15/22 09/14/22 05:28 05:28 13:55 WBC 13.0 H RBC 3.57 L Hgb Hct MCV 103.1 H MCH Plt Count 119 L Neut % (Auto) 79.8 H Lymph % (Auto) 4.8 L Morrison % (Auto) 13.5 H Lymph # (Auto) 0.62 L Morrison # (Auto) 1.75 H Seg Neutrophils % Lymphocytes % Monocytes % (Manual) Immature Gran # 0.07 H Absolute Neutrophils 10.33 H Platelet Estimate RBC Morphology Macrocytosis PT 31.9 H INR 3.0 H Carbon Dioxide POC Total CO2 POC Anion Gap POC BUN BUN Creatinine POC Creatinine POC Glucose Calcium POC WB Ioniz Calcium Total Bilirubin Direct Bilirubin AST Alkaline Phosphatase Lactate Dehydrogenase NT-Pro-B Natriuret Pep Total Protein Albumin Procalcitonin Urine Appearance Cloudy A Urine Protein 100 A Urine Urobilinogen 4.0 A Ur Leukocyte Esterase 250 A Urine RBC 56 H Urine WBC > 182 H Ur Squamous Epith Cells 5 H Urine Bacteria Few A Granular Casts 19 H Urine Mucus Mod A 09/14/22 09/14/22 09/14/22 10:59 10:59 10:59 WBC RBC Hgb Hct MCV MCH Plt Count Neut % (Auto) Lymph % (Auto) Morrison % (Auto) Lymph # (Auto) Morrison # (Auto) Seg Neutrophils % 85 H Lymphocytes % 5 L Monocytes % (Manual) Immature Gran # Absolute Neutrophils Platelet Estimate Decreased A RBC Morphology Abnormal A Macrocytosis 1+ A PT 30.1 H INR 2.7 H Carbon Dioxide POC Total CO2 POC Anion Gap POC BUN BUN Creatinine POC Creatinine POC Glucose Calcium POC WB Ioniz Calcium Total Bilirubin 2.2 H Direct Bilirubin 0.8 H AST 44 H Alkaline Phosphatase 134 H Lactate Dehydrogenase NT-Pro-B Natriuret Pep Total Protein 5.5 L Albumin Procalcitonin Urine Appearance Urine Protein Urine Urobilinogen Ur Leukocyte Esterase Urine RBC Urine WBC Ur Squamous Epith Cells Urine Bacteria Granular Casts Urine Mucus 09/14/22 09/14/22 09/14/22 10:59 10:59 10:50 WBC RBC Hgb Hct MCV 102.1 H MCH 34.2 H Plt Count 102 L Neut % (Auto) 93.4 H Lymph % (Auto) 2.4 L Morrison % (Auto) Lymph # (Auto) 0.20 L Morrison # (Auto) Seg Neutrophils % Lymphocytes % Monocytes % (Manual) Immature Gran # Absolute Neutrophils Platelet Estimate RBC Morphology Macrocytosis PT INR Carbon Dioxide POC Total CO2 POC Anion Gap POC BUN BUN Creatinine POC Creatinine POC Glucose Calcium POC WB Ioniz Calcium Total Bilirubin Direct Bilirubin AST Alkaline Phosphatase Lactate Dehydrogenase NT-Pro-B Natriuret Pep 2663.0 H Total Protein Albumin Procalcitonin 4.94 H Urine Appearance Urine Protein Urine Urobilinogen Ur Leukocyte Esterase Urine RBC Urine WBC Ur Squamous Epith Cells Urine Bacteria Granular Casts Urine Mucus 09/14/22 10:47 WBC RBC Hgb Hct MCV MCH Plt Count Neut % (Auto) Lymph % (Auto) Morrison % (Auto) Lymph # (Auto) Morrison # (Auto) Seg Neutrophils % Lymphocytes % Monocytes % (Manual) Immature Gran # Absolute Neutrophils Platelet Estimate RBC Morphology Macrocytosis PT INR Carbon Dioxide POC Total CO2 19.0 L POC Anion Gap 19.0 H POC BUN 21 H BUN Creatinine POC Creatinine 1.4 H POC Glucose 110 H Calcium POC WB Ioniz Calcium 1.08 L Total Bilirubin Direct Bilirubin AST Alkaline Phosphatase Lactate Dehydrogenase NT-Pro-B Natriuret Pep Total Protein Albumin Procalcitonin Urine Appearance Urine Protein Urine Urobilinogen Ur Leukocyte Esterase Urine RBC Urine WBC Ur Squamous Epith Cells Urine Bacteria Granular Casts Urine Mucus Meds: Medications Acetaminophen (Acetaminophen 325 Mg Tablet) 650 mg PO Q4-6HP PRN; Protocol PRN Reason: Per Pain Protocol Last Admin: 09/15/22 08:29 Dose: 650 mg Acetaminophen/Butalbital/Caffeine (Butalb/Acetaminophen/Caffeine 1 Tablet) 1 tab PO Q4HP PRN PRN Reason: Headache Last Admin: 09/16/22 20:50 Dose: 1 tab Hydrocodone Bitart/Acetaminophen (Hydrocodone/Apap 7.5/325mg Tablet) 1 - 2 tab PO Q8HP PRN; Protocol PRN Reason: Per Pain Protocol Last Admin: 09/15/22 19:25 Dose: 1 tab Albuterol/Ipratropium (Ipratropium/Albuterol 3 Ml Ampul.Neb) 3 ml NEB Q4HP PRN PRN Reason: Shortness Of Breath Amiodarone HCl (Amiodarone Hcl 200 Mg Tablet) 200 mg PO HS [facility] Last Admin: 09/16/22 20:50 Dose: 200 mg Aspirin (Aspirin 81 Mg Tab.Chew) 81 mg PO DAILY [facility] Last Admin: 09/16/22 09:34 Dose: 81 mg Atorvastatin Calcium (Atorvastatin 40 Mg Tablet) 40 mg PO HS [facility] Last Admin: 09/16/22 20:50 Dose: 40 mg Bupropion HCl (Bupropion 150 Mg Tab.Xl.24h) 300 mg PO DAILY [facility] Last Admin: 09/16/22 09:39 Dose: 300 mg Docusate Sodium (Docusate Sodium 100 Mg Capsule) 100 mg PO BID [facility] Last Admin: 09/16/22 20:51 Dose: 100 mg Norepinephrine Bitartrate 8 mg (/ Sodium Chloride) 250 mls @ 18.75 mls/hr IV Q14H [facility]; Protocol Last Admin: 09/17/22 02:40 Dose: Not Given Sodium Chloride (Sodium Chloride 0.9%) 250 mls @ 20 mls/hr IV .[id number] [facility] Last Infusion: 09/17/22 05:23 Dose: 0 mls/hr Potassium Chloride 40 meq/ (Dextrose) 520 mls @ 130 mls/hr IV PRN PRN PRN Reason: K+ < 3.0 Magnesium Sulfate (Magnesium Sulfate) 2 gm in 50 mls @ 25 mls/hr IV PRN PRN PRN Reason: Magnesium Level </= 1.6 Ceftriaxone Sodium 2 gm/ (Dextrose) 50 mls @ 100 mls/hr IV Q24H [facility] Last Infusion: 09/16/22 18:39 Dose: Infused Metoprolol Tartrate (Metoprolol Tartrate 5 Mg/5 Ml Vial) 5 mg IV Q2HP PRN PRN Reason: Tachyarrhythmias HR>110 Ondansetron HCl (Ondansetron 4 Mg/2 Ml Vial) 4 mg IV Q4HP PRN PRN Reason: Nausea And Vomiting Polyethylene Glycol (Polyethylene Glycol 3350 17 Gm Packet) 17 gm PO DAILYP PRN PRN Reason: Constipation Potassium Chloride (Potassium Chloride 20 Meq Tablet) 40 meq PO ONCE PRN PRN Reason: Potassium Level < 3 Potassium Chloride (Potassium Chloride 20 Meq Tablet) 40 meq PO UD PRN PRN Reason: Potassium Level of 3-3.5 Senna (Sennosides 1 Tablet) 2 tab PO DAILY PRN PRN Reason: Constipation Sodium Chloride (0.9 % Sodium Chloride 10 Ml Syringe) 10 ml IV Q8 [facility] Last Admin: 09/17/22 04:30 Dose: 10 ml Thyroid (Thyroid, Pork 60 Mg Tablet) 60 mg PO QDAY [facility] Last Admin: 09/16/22 09:34 Dose: 60 mg Warfarin Sodium (Warfarin Per Pharmacy) 1 order PO UD [facility] Warfarin Sodium (Warfarin 1 Mg Tablet) 1 mg PO DAILY@1400 [facility] A/P Narrative A/P Narrative: A: *Septic shock: 2/2 below -leukocytosis improved, pct improving -now off levophed this morning *UTI Complicated(E. coli): *Bacteremia(e.coli): pct now improving *Metabolic acidosis: 2/2 above *CKD III: *Generalized weakness/Lethargy: 2/2 above *Chronic A-fib: On warfarin and amiodarone *Mechanical mitral valve: On warfarin *?h/o CHF: *h/o CVA: on asa/statin *Hypothyroidism: *Depression/anxiety: P: -Rocephin -monitor BP closely -continue home amiodarone -monitor renal function/UOP/fluid balance closely -follow-up manual differential and chemistry -trend pct -restart Lasix/Aldactone once off pressors, JOSE's -continue aspirin/statin -continue psych meds -CM for placement -pt/ot -ppx: warfarin per pharmacy DNR Time Spent With Patient Time: Total time spent is greater than 50% in coordination of care (as documented) at patient's floor/unit and/or counseling patient: Subsequent: Total time with patient: 50 - 65 Minutes QUALITY VTE Deep Vein Thrombosis/Pulmonary Embolism Present on Admission: No
[2022-09-17] MEDS: THYROID, PORK 60 MG TABLET PO SCH (08:31)
[2022-09-17] MEDS: cefTRIAXone 2 GM in DEXTROSE 5% IN WATER 50 ML IV SCH (08:31)
[2022-09-17] MEDS: ASPIRIN 81 MG TAB.CHEW PO SCH (08:31)
[2022-09-17] MEDS: buPROPion 150 MG TAB.XL.24H PO SCH (08:31)
[2022-09-17] MEDS: DOCUSATE SODIUM 100 MG CAPSULE PO SCH ×2 (08:31→21:00)
[2022-09-17] MEDS: BUTALB/ACETAMINOPHEN/CAFFEINE 1 TABLET PO PRN ×2 (09:13→21:00)
[2022-09-17] MEDS: 0.9 % SODIUM CHLORIDE 250 ML IV SCH (09:27)
[2022-09-17] MEDS ORDERED: ALBUMIN HUMAN 12.5 GM/50 ML VIAL IV SCH (09:28)
[2022-09-17] MEDS: SPIRONOLACTONE 25 MG TABLET PO SCH (09:39)
[2022-09-17] MEDS: FUROSEMIDE 20 MG TABLET PO SCH (09:39)
[2022-09-17] MEDS ORDERED: WARFARIN 1 MG TABLET PO SCH (14:00)
[2022-09-17] MEDS: ATORVASTATIN 40 MG TABLET PO SCH (21:00)
[2022-09-17] MEDS: AMIODARONE HCL 200 MG TABLET PO SCH (21:00)
[2022-09-18] MEDS: 0.9 % SODIUM CHLORIDE 10 ML SYRINGE IV SCH ×2 (04:35→14:09)
[2022-09-18 07:00] LABS: INR 2.4 (0.9-1.1); Prothrombin Time 27.1 sec (11.9-14.5)
--- NOTE | 2022-09-18 08:16 | Internal Med Progress Note ---
SUBJECTIVE Subjective Patient information: Note initiated : 09/18/22 at 8:14 am Service Date, if different from initiated Date: [] Patient: Crystal Conley a 72 y/o F admitted on 09/14/22 for weakness/sepsis. Chief Complaint: [] Interval history: History of present illness: Ms. Conley is a 72 year old F Presents to ED with generalized weakness and lethargy. As well as body aches chills some nausea and urinary urgency. She also complains of some lightheadedness and symptoms have been occurring for several days. she denies fevers but complains of headache and body aches as well. dip in the ED was consistent with infection. Urinalysis pending. she was hypotensive in the ED and requiring Levophed despite IV fluids. Chest x-ray was concerning for some mild interstitial fluid. last echo done in 12/2021 showed a good EF and no diastolic dysfunction. laboratory showed a mild elevation of BUN/creatinine ratio elevated procalcitonin of 4.9. WBCs were within normal limits but manual differential is pending. 09/15 Patient feels tired this morning, has headache which she gets at home. Still on Levophed. Blood cultures gram-negative bacillus. Urine cultures pending. Leukocytosis noted. And elevated procalcitonin. 09/16 Patient still on Levophed although requirement is less than yesterday. Leukocytosis resolved. Urine culture with E. coli blood culture with gram- negative bacillus. Continue on Rocephin. Albumin x2 rounds today. Cautious with IV fluids as patient has a history of CHF. 09/17 Patient feeling better today. Off Levophed overnight. Blood pressure good this morning. Monitor blood pressure closely this morning while off Levophed. May restart home diuretics as she feels she is starting to retain fluid again. 09/18 No new complaints overnight events.blood pressure has been good. Review of Systems: Pertinent positives as above. denies fever/vomiting/chest or abdominal pain/cough/dyspnea/diarrhea. PHYSICAL EXAM General: Alert, Awake, No acute Distress Eyes/N/T: EOMI, no scleral icterus, Head/Neck: neck supple, full ROM, CV: RRR, 3/6SM, Pulm: minimal right base rales, no wheezing, no respiratory distress Abd: soft, nontender, +BS x4 Ext: no clubbing/cyanosis, mild-1+b/l LE edema, nontender Neuro: Alert, no focal deficits, moves all extremities, , sensations intact b/l upper/lower Psychiatric: Skin: warm/dry, normal color Constitutional Vitals: Vital Signs Temp Pulse Resp BP Pulse Ox O2 Del Method 98.1 F 52 L 17 104/53 99 Room Air 09/18/22 04:17 09/18/22 04:17 09/18/22 04:17 09/18/22 04:09/18/22 04:09/18/22 04:17 Period Temp Pulse Resp BP Sys/Mai Pulse Ox O2 Del Method O2 Flow Rate Last 24 Hr 97.7 F-98.3 F 52-86 16-17 100-114/49-53 94-99 Room Air-Room Air Intake and Output 09/17/22 09/18/22 09/18/22 19:59 03:59 11:59 Intake Total 450 Output Total 450 600 400 Balance -450 -600 50 Weight 66.587 kg Intake & Output: Intake & Output 09/17/22 09/18/22 09/18/22 19:59 03:59 11:59 Intake Total 450 Output Total 450 600 400 Balance -450 -600 50 Weight 66.587 kg Intake: Oral 450 Output: Void Amount 450 600 400 Other: Meal Dinner Percent of Meal Consumed 75% Feeding Ability Independent Urine Appearance Clear Clear Clear Urine Color Pale Yellow Yellow Urine Odor Normal Normal OBJ DATA Labs 09/16/22 05:28 09/17/22 05:30 Labs: Abnormal Lab Results 09/18/22 09/17/22 09/17/22 05:24 05:31 05:30 RBC Hgb Hct MCV Plt Count Lymphocytes % Monocytes % (Manual) Platelet Estimate RBC Morphology Macrocytosis PT 27.1 H 27.5 H INR 2.4 H 2.5 H Carbon Dioxide Calcium Total Bilirubin Direct Bilirubin Lactate Dehydrogenase Total Protein Albumin Procalcitonin 2.84 H 09/17/22 09/16/22 09/16/22 05:30 05:29 05:28 RBC Hgb Hct MCV Plt Count Lymphocytes % Monocytes % (Manual) Platelet Estimate RBC Morphology Macrocytosis PT 31.1 H INR 2.9 H Carbon Dioxide 20 L Calcium 7.8 L Total Bilirubin Direct Bilirubin 0.4 H Lactate Dehydrogenase 268 H Total Protein 5.3 L Albumin 2.8 L Procalcitonin 5.74 H 09/16/22 09/16/22 05:28 05:28 RBC 3.17 L Hgb 10.6 L Hct 32.9 L MCV 103.8 H Plt Count 105 L Lymphocytes % 12 L Monocytes % (Manual) 17 H Platelet Estimate Decreased A RBC Morphology Abnormal A Macrocytosis 1+ A PT INR Carbon Dioxide 20 L Calcium 8.0 L Total Bilirubin 1.6 H Direct Bilirubin 0.6 H Lactate Dehydrogenase 294 H Total Protein 5.2 L Albumin 2.6 L Procalcitonin Meds: Medications Acetaminophen (Acetaminophen 325 Mg Tablet) 650 mg PO Q4-6HP PRN; Protocol PRN Reason: Per Pain Protocol Last Admin: 09/15/22 08:29 Dose: 650 mg Acetaminophen/Butalbital/Caffeine (Butalb/Acetaminophen/Caffeine 1 Tablet) 1 tab PO Q4HP PRN PRN Reason: Headache Last Admin: 09/17/22 21:00 Dose: 1 tab Hydrocodone Bitart/Acetaminophen (Hydrocodone/Apap 7.5/325mg Tablet) 1 - 2 tab PO Q8HP PRN; Protocol PRN Reason: Per Pain Protocol Last Admin: 09/15/22 19:25 Dose: 1 tab Albuterol/Ipratropium (Ipratropium/Albuterol 3 Ml Ampul.Neb) 3 ml NEB Q4HP PRN PRN Reason: Shortness Of Breath Amiodarone HCl (Amiodarone Hcl 200 Mg Tablet) 200 mg PO HS [facility] Last Admin: 09/17/22 21:00 Dose: 200 mg Aspirin (Aspirin 81 Mg Tab.Chew) 81 mg PO DAILY [facility] Last Admin: 09/17/22 08:31 Dose: 81 mg Atorvastatin Calcium (Atorvastatin 40 Mg Tablet) 40 mg PO HS [facility] Last Admin: 09/17/22 21:00 Dose: 40 mg Bupropion HCl (Bupropion 150 Mg Tab.Xl.24h) 300 mg PO DAILY [facility] Last Admin: 09/17/22 08:31 Dose: 300 mg Docusate Sodium (Docusate Sodium 100 Mg Capsule) 100 mg PO BID [facility] Last Admin: 09/17/22 21:00 Dose: 100 mg Furosemide (Furosemide 20 Mg Tablet) 20 mg PO QDAY [facility] Last Admin: 09/17/22 09:39 Dose: 20 mg Potassium Chloride 40 meq/ (Dextrose) 520 mls @ 130 mls/hr IV PRN PRN PRN Reason: K+ < 3.0 Magnesium Sulfate (Magnesium Sulfate) 2 gm in 50 mls @ 25 mls/hr IV PRN PRN PRN Reason: Magnesium Level </= 1.6 Ceftriaxone Sodium 2 gm/ (Dextrose) 50 mls @ 100 mls/hr IV Q24H [facility] Last Infusion: 09/17/22 09:05 Dose: Infused Metoprolol Tartrate (Metoprolol Tartrate 5 Mg/5 Ml Vial) 5 mg IV Q2HP PRN PRN Reason: Tachyarrhythmias HR>110 Ondansetron HCl (Ondansetron 4 Mg/2 Ml Vial) 4 mg IV Q4HP PRN PRN Reason: Nausea And Vomiting Polyethylene Glycol (Polyethylene Glycol 3350 17 Gm Packet) 17 gm PO DAILYP PRN PRN Reason: Constipation Potassium Chloride (Potassium Chloride 20 Meq Tablet) 40 meq PO ONCE PRN PRN Reason: Potassium Level < 3 Potassium Chloride (Potassium Chloride 20 Meq Tablet) 40 meq PO UD PRN PRN Reason: Potassium Level of 3-3.5 Senna (Sennosides 1 Tablet) 2 tab PO DAILY PRN PRN Reason: Constipation Sodium Chloride (0.9 % Sodium Chloride 10 Ml Syringe) 10 ml IV Q8 [facility] Last Admin: 09/18/22 04:35 Dose: 10 ml Spironolactone (Spironolactone 25 Mg Tablet) 25 mg PO QDAY [facility] Last Admin: 09/17/22 09:39 Dose: 25 mg Thyroid (Thyroid, Pork 60 Mg Tablet) 60 mg PO QDAY [facility] Last Admin: 09/17/22 08:31 Dose: 60 mg Warfarin Sodium (Warfarin Per Pharmacy) 1 order PO UD [facility] Warfarin Sodium (Warfarin 1 Mg Tablet) 1 mg PO DAILY@1400 [facility] Last Admin: 09/17/22 14:48 Dose: 1 mg A/P Narrative A/P Narrative: A: *Septic shock: 2/2 below. resolved -leukocytosis improved, pct improving -now off levophed this morning *UTI Complicated(E. coli): *Bacteremia(e.coli): pct now improving *Metabolic acidosis: 2/2 above *CKD III: *Generalized weakness/Lethargy: 2/2 above *Chronic A-fib: On warfarin and amiodarone *Mechanical mitral valve: On warfarin *?h/o CHF: *h/o CVA: on asa/statin *Hypothyroidism: *Depression/anxiety: P: -Rocephin -monitor BP closely -continue home amiodarone -monitor renal function/UOP/fluid balance closely -follow-up manual differential and chemistry -trend pct -restarted Lasix/Aldactone once off pressors, JOSE's -continue aspirin/statin -continue psych meds -CM for placement -pt/ot -ppx: warfarin per pharmacy DNR Time Spent With Patient Time: Total time spent is greater than 50% in coordination of care (as documented) at patient's floor/unit and/or counseling patient: Subsequent: Total time with patient: 35 - 49 minutes QUALITY VTE Deep Vein Thrombosis/Pulmonary Embolism Present on Admission: No
[2022-09-18] MEDS: SPIRONOLACTONE 25 MG TABLET PO SCH (08:46)
[2022-09-18] MEDS: buPROPion 150 MG TAB.XL.24H PO SCH (08:46)
[2022-09-18] MEDS: THYROID, PORK 60 MG TABLET PO SCH (08:46)
[2022-09-18] MEDS: FUROSEMIDE 20 MG TABLET PO SCH (08:47)
[2022-09-18] MEDS: ASPIRIN 81 MG TAB.CHEW PO SCH (08:47)
[2022-09-18] MEDS: DOCUSATE SODIUM 100 MG CAPSULE PO SCH (08:47)
[2022-09-18] MEDS: cefTRIAXone 2 GM in DEXTROSE 5% IN WATER 50 ML IV SCH (10:16)
[2022-09-18] MEDS ORDERED: WARFARIN 1 MG TABLET PO SCH (14:00)
== END 2022-09-18 13:41 | disposition home health service (06) | DRG 871 ==
LOC: ED 10:25 → ICU 17:00 → MEDSUR 09-17 16:00
PROVIDERS: ADMIT Internal Medicine; ATTEND Internal Medicine